=== PATIENT | female | born 1945 | race Caucasian/White ===

== ENCOUNTER → 2018-08-29 | Outpatient (CLI) | payer MEDICARE, MEDICAID ==
--- NOTE | 2018-09-02 17:20 | SLEEPHOME ---
DATE OF PROCEDURE: 08/29/2018 ORDERED BY: Dr. Mckenzie Diagnostic home sleep testing was performed due to concern for the obstructive sleep apnea syndrome in this patient with history of snoring. For testing a nocturnal T3 respiratory monitoring device was used. Continuous record was made of pulse, oxygen saturation, airflow, chest, abdominal strain and body position. 10 hours and 59 minutes of data were reviewed. There were 8 hours and 32 minutes marked as time in bed. During the interval marked time in bed there were 248 respiratory events identified of 10 seconds in duration or greater for respiratory event index of 29. The events were primarily obstructive but 27 mixed and central apneas were also seen. Baseline pulse rate 53, pulse rate ranged 31-97. Baseline saturation 91%. Saturations fell to 72%. Testing was per both supine and nonsupine positions. IMPRESSION: Abnormal home sleep testing with repetitive respiratory events and oxygen desaturations to 72% with a respiratory event index of 29 is consistent with the obstructive sleep apnea syndrome. RECOMMENDATIONS: The patient should be referred for formal sleep evaluation.
== END ==
LOC: M SLEEP HO 09:56
PROVIDERS: ATTEND Internal Medicine Cardiovascular Disease
DX: R06.83 Snoring (principal)

== ENCOUNTER 2018-10-18 14:06 | Inpatient (IN) | payer MEDICARE, MEDICAID ==
[~2018-10-18] VITALS: Ht 157.5 cm; Wt 61.4 kg
[2018-10-18 16:30] VITALS: BP 154/77
[2018-10-18] MEDS ORDERED: MOM 30ML SUSPENSION UDC PO PRN (16:30)
[2018-10-18] MEDS ORDERED: BISACODYL 10 MG SUPP PR PRN (16:30)
[2018-10-18] MEDS ORDERED: DEXTROSE 50% 50 ML SYRINGE IV PRN (16:30)
[2018-10-18] MEDS ORDERED: GLUCOSE 4 GM CHEW TABLET PO PRN (16:30)
[2018-10-18] MEDS ORDERED: GLUCAGON FOR INJ 1 MG VIAL (J1610) SC PRN (16:30)
[2018-10-18] MEDS ORDERED: SERO1TAB3 PO (17:11)
[2018-10-18] MEDS ORDERED: CALC1TAB30 PO (17:11)
[2018-10-18] MEDS ORDERED: LABE10TAB PO (17:11)
[2018-10-18] MEDS ORDERED: SYNT75TA PO (17:11)
[2018-10-18] MEDS ORDERED: KEPP10002 PO (17:11)
[2018-10-18] MEDS ORDERED: METF500T13 PO ×2 (17:11)
[2018-10-18] MEDS ORDERED: CRES20TA2 PO (17:11)
[2018-10-18] MEDS ORDERED: ASCO500T PO (17:11)
[2018-10-18] MEDS ORDERED: FERR1TAB8 PO (17:11)
[2018-10-18] MEDS ORDERED: ASPI81TA85 PO (17:11)
[2018-10-18] MEDS ORDERED: FOLI1TAB11 PO (17:11)
[2018-10-18] MEDS ORDERED: ACET-908 PO (17:15)
[2018-10-18] MEDS ORDERED: MELA1LIQ2 PO (17:26)
--- NOTE | 2018-10-18 17:32 | HPEPDOC ---
[facility]rb Compliance Coordinator Note DATE OF ADMISSION: 10/18/18 SOURCE OF ADMISSION INFORMATION: [facility] records and patient CHIEF COMPLAINT: stroke with aortic dissection repair HISTORY OF PRESENT ILLNESS: 71F pmh HTN, HLD, Hypothyroidism, DM, HALLMAN, Gout, CKD2 who experienced chest pain on 10/03/18 went to [facility] ED where she had elevated cardiac enzymes, then transferred to [facility] on 10/04/18. CT chest showed Elder type A aortic dissectionascending aneurysm measuring 4.5 cm. ECHO showed overall normal systolic function without regional wall abnormalitiesdissection flap noted in the ascending aorta extending through the arch to the descending aorta. She was evaluated by cardiothoracic surgery and underwent an ascending aortic repla cement. Post-operatively she was difficult to arouse, CTA head showing, Acute right frontoparietal lobe infarct with no signs of hemorrhagic transformation, however did have sulcal effacement that was evaluated by neurology and thought to be due to [id number] embolism from aortic dissection.She had 2 seizures the day following her cardiac procedure, was loaded with Keppra and transitioned to oral dosing. She had fever with hypotension with CXR on 10/14/18 showing, Accentuated interstitial markings bilaterally, possibly representing pulmonary edemaStable bilateral pleural effusions and bibasilar atelectasis Stable retrocardiac opacity, which can be related to pleural effusion and atelectasis; however, airspace disease such as aspiration or pneumonia cannot be excluded. Some of her BP meds, but she then had rebound HTN requiring IV hydralazine and was managed on Labetolol 100 mg TID thereafter. No antibiotics were initiated or ultimately recommended by Infectious disease for elevation in leukocytosis in setting of fever because blood cultures and Ucx were negative. SHe had episodes of delirium and encephalopathy which was treated with Seroquel. She was evaluated by therapy, found to have significant deficits in her mobility and ADL management and deemed medically appropriate for discharge to ARU on 10/18/18. REVIEW OF SYSTEMS: The following is a completed review of systems and has been reviewed. Review of systems otherwise unremarkable. PAIN: Patient self reports no pain EYES: No recent vision changes EARS, NOSE, & THROAT: +dysphagia CARDIOVASCULAR: + chest pain (sternal wall pain, TTP) PULMONARY: Denies shortness of breath GASTROINTESTINAL: Denies constipation/diarrhea GENITOURINARY: +inocntinence MUSCULOSKELETAL: LUE weakness NEUROLOGICAL:+ seizures, +LUE paresis and apraxia SKIN: abdominal incisions and sternal scar PSYCHIATRIC: agitated, but pleasant All other review of systems found to be negative. PAST MEDICAL HISTORY: as per HPI PAST SURGICAL HISTORY: as per HPI ALLERGIES: Please see below. MEDICATIONS: Please see below. FAMILY HISTORY: stroke and seizures SOCIAL HISTORY: Lives with , no EOTH, no smoking, no illicit drugs DIET: consistent carb, low sodium, mechanical soft with nectar PHYSICAL EXAMINATION: VITAL SIGNS: Please see below. GENERAL: Pleasant and cooperative. No acute distress. mildly agitated HEENT: PERRL. Extraocular movements intact. Clear conjunctiva, left facial droop CARDIOVASCULAR: Regular rate and rhythm. No murmurs, rubs, or gallops, +TTP sternum LUNGS: Clear to auscultation bilaterally. No wheezes. No rhonchi, decreased breath sounds at bases (poor inspiratory effort) ABDOMEN: Soft, nontender, nondistended. Positive bowel sounds. Normal active bowel sounds NEUROLOGICAL: Alert and oriented to self and location, had difficulty following commands consistently, +apraxia Cranial nerves II through XII grossly intact except for left sided facial droop, extinction to touch on the left side, otherwise sensation intact to light touch EXTREMITIES: 5\\5 strength right upper extremities. 3/5 left elbow flexors/extensors, 2/5 direct support professional and wrist extension 5\\5 strength right lower extremity. 4/5 strength in left lower extremity. SKIN: no sacral ulcers, sternal incision healing well, abdominal incisions with mild erythema LABORATORY DATA: Please see below. IMAGING:Imaging documentation personally reviewed by record FUNCTIONAL STATUS: Premorbid: Independent with all activities of daily life as well as mobility On Admission: Maximum assistance for bathing, upper body dressing, bed chair and wheelchair transfers, toilet transfers, ambulation. GOALS: Mod-I with ambulation household distances, Mod-I for functional transfers, bathing, grooming, toileting, medical optimization, caregiver training, assess for DME needs ASSESSMENT:73 year-old F with past medical history of HTN, DM, CKD2 who presents status post abdominal aortic dissection repair complicated by right frontal infarct. 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 Neuro: s/p right frontal lobe infarct, c/u ASA and statin, maintain good BP control, will start Prozac for motor recovery -new onset GCT seizures, c/u Keppra, will need neuro f/u 3. Cardio: s/p type A aortic dissection s/p repair on 10/04/18 with poorly controlled HTN with recent hypotensive episode at [facility] on 10/14, most BP meds held, was taking labetolol 100mg po TID, per d/c recs c/u on labetolol 50mg BID, medicine consulted to assist with management- f/u with cardiac surgeon -will add low dose lasix given recent CXR showing pulmonary edema and bilateral pleural effusions 4. Resp: monitor for infection, encourage incentive spirometry 5. Endo: pmh hypothyroidism, c/u synthroid DM- c/u insulin coverage, will hold metformin 6. DVT ppx: heparin and TEDs 7. GI ppx: protnix BID 7. Pain: Tylenol prn 9. Psych: epiodes of ICU delirum, was on seroquel qhs, will switch to trazodone qhs, trazodone ordered prn agitation 8. Dispo: TBD POST ADMISSION PHYSICIAN EVALUATION: Medical and functional status: Description of medical status, medical assessment: As above. Rehabilitation diagnosis and current and prior cold morbid medical conditions as above. Risk of complications and plans to mitigate them as above. Description of functional status current status is as above. Prior status as above. Status compared to preadmission: There are no clinically significant differences between the patient's current status and the information described on the preadmission screening document. Treatment plan anticipated: Treatment plan is as described above. Required disciplines including physical therapy, occupational therapy, others as noted above Intensity of services: 3 hours a day, 6 days a week. Special considerations: There are no specific special or safety considerations that would likely preclude immediate implementation of an intensive rehabilitation program or subsequently influence the plan of care ATTESTATION: Considering all the information above, it is my best judgment that this patient requires intensive rehabilitation therapy as described above and an inpatient hospital environment due to the complexity of nursing, medical, and rehabilitation needs required by the patient. Furthermore, this patient can reasonably be expected to participate in an benefit from an inpatient rehabilitation stay with an interdisciplinary team approach to the delivery of rehabilitation care under the direction and supervision of rehabilitation physi demetria PROGNOSIS: good ESTIMATED LENGTH OF STAY:21-24 days. PROJECTED DISCHARGE DESTINATION: Home with family support and any durable medical equipment required to increase functional safety and mobility. TIME SPENT COUNSELING AND COORDINATING INITIAL CARE: Greater than 70 minutes. Vital Signs Vital Signs Date Time Temp Pulse Resp B/P (MAP) Pulse Ox O2 Delivery O2 Flow Rate FiO2 10/18/18 16:30 99.1 101 20 154/77 (102) 97 Home Medications Scheduled Acetaminophen (Acetaminophen) 325 Mg Tablet, 650 MG PO Q6H, (Reported) Ascorbic Acid (Ascorbic Acid) 500 Mg Tablet, 500 MG PO DAILY, (Reported) STARTED AT [facility] Aspirin (Aspir 81) 81 Mg Tablet.dr, 81 MG PO DAILY, (Reported) Calcium Carbonate/Vitamin D3 (Calcium 500-Vit D3 200 Caplet) 1 Each Tablet, 1 TAB PO DAILY, (Reported) Ferrous Sulfate (Ferrous Sulfate) 325 Mg Tablet, 325 MG PO BID, (Reported) STARTED AT [facility] TAKE WITH MEALS Folic Acid (Folic Acid) 1 Mg Tablet, 1 MG PO DAILY, (Reported) STARTED AT [facility] Labetalol HCl (Labetalol HCl) 100 Mg Tablet, 50 MG PO Q12H, (Reported) STARTED AT [facility] Levetiracetam (Keppra) 1,000 Mg Tablet, 1,000 MG PO BID, (Reported) STARTED AT [facility] Levothyroxine Sodium (Synthroid) 75 Mcg Tablet, 75 MCG PO DAILY, (Reported) Metformin HCl (Metformin HCl) 500 Mg Tablet, 1,000 MG PO QAM, (Reported) Metformin HCl (Metformin HCl) 500 Mg Tablet, 500 MG PO QPM, (Reported) Quetiapine Fumarate (Seroquel) 25 Mg Tablet, 12.5 MG PO QHS, (Reported) Rosuvastatin Calcium (Crestor) 20 Mg Tablet, 20 MG PO DAILY, (Reported) Scheduled PRN Melatonin (Melatonin) 1 Mg/1 Ml Liquid, 8 ML PO QHS PRN for INSOMNIA, (Reported) Allergies Coded Allergies: morphine (Verified Adverse Reaction, Mild, 10/18/18) "facial flushing" A-FIB/CHADSVASC A-FIB History Current/History of A-Fib/PAF?: No CHRIS CORDON MD Oct 18, 2018 17:32
[2018-10-18] MEDS: traZODone 25MG PER 1/2 TABLET PO PRN (17:59)
[2018-10-18] MEDS: HumaLOG INSULIN (NovoLOG) PER UNIT SC SCH ×2 (18:00→20:56)
[2018-10-18] MEDS: ACETAMINOPHEN TAB 650MG DOSE (2X325MG) PO PRN ×2 (18:00→22:20)
[2018-10-18 20:00] VITALS: BP 139/80
[2018-10-18] MEDS: SENNA 8.6 MG TAB (SENOKOT) PO SCH (21:00)
[2018-10-18] MEDS ORDERED: LABETALOL 100 MG TAB PO SCH ×2 (21:00)
[2018-10-18] MEDS: DOCUSATE SODIUM 100 MG CAP PO SCH (21:00)
[2018-10-18] MEDS ORDERED: PANTOPRAZOLE 40MG TAB (PROTONIX) PO SCH (21:00)
[2018-10-18] MEDS: levETIRAcetam 250MG TABLET (KEPPRA) PO SCH (21:06)
[2018-10-18] MEDS: HEPARIN SOD (PORCINE) 5000 UNITS/ML VIAL SQ SCH (21:08)
[2018-10-18] MEDS: ROSUVASTATIN 10 MG TAB (CRESTOR) PO SCH (21:08)
[2018-10-18] MEDS: FERROUS GLUCONATE 324 MG TAB PO SCH (21:08)
[2018-10-18] MEDS: traZODone 50 MG TAB PO SCH (21:08)
[2018-10-18] MEDS: PANTOPRAZOLE 40MG TAB (PROTONIX) PO SCH (21:08)
[2018-10-18] MEDS: LEVEMIR (INSULIN DETEMIR) 1 UNITS/0.01ML SC SCH (21:09)
[2018-10-19] MEDS: traZODone 25MG PER 1/2 TABLET PO PRN (03:07)
[2018-10-19 06:00] VITALS: BP 161/79
[2018-10-19] MEDS: LEVOTHYROXINE 75MCG TABLET (0.075MG) PO SCH (06:29)
[2018-10-19 07:23] LABS: BASO # 0.1 10^3/uL (0.0-0.2); BASO % 0.5 % (0.0-1.0); EOS # 0.2 10^3/uL (0.0-0.50); EOS % 1.6 % (0.0-3.0); HEMATOCRIT 31.5 % (36.0-47.0); LYMPH # 1.2 10^3/uL (1.5-4.5); LYMPH % 9.3 % (24.0-44.0); MEAN CORPUSCULAR HEMOGLOBIN 28.7 pg (27.0-33.0); MEAN CORPUSCULAR HGB CONC 31.7 g/dl (32.0-36.5); MEAN CORPUSCULAR VOLUME 90.5 fl (80.0-96.0); MONO % 7.6 % (0.0-5.0); NEUTROPHILS # 10.4 10^3/uL (1.8-7.7); PLATELET COUNT, AUTOMATED 309 10^3/uL (150-450); RED BLOOD COUNT 3.48 10^6/uL (4.00-5.40); WHITE BLOOD COUNT 12.9 10^3/uL (4.0-10.0)
[2018-10-19] MEDS: HumaLOG INSULIN (NovoLOG) PER UNIT SC SCH ×4 (07:30→20:24)
[2018-10-19 07:56] LABS: ALT/SGPT 13 U/L (12-78); BILIRUBIN,TOTAL 0.7 MG/DL (0.2-1.0); BLOOD UREA NITROGEN 20 MG/DL (7-18); CALCIUM LEVEL 8.9 MG/DL (8.8-10.2); CARBON DIOXIDE LEVEL 25 MEQ/L (21-32); CHLORIDE LEVEL 104 MEQ/L (98-107); CREATININE FOR GFR 0.86 MG/DL (0.55-1.30); GLOMERULAR FILTRATION RATE > 60.0 (>39); GLUCOSE, FASTING 95 MG/DL (70-100); SODIUM LEVEL 136 MEQ/L (136-145); TOTAL PROTEIN 6.4 GM/DL (6.4-8.2)
[2018-10-19] MEDS: DOCUSATE SODIUM 100 MG CAP PO SCH ×2 (09:00→21:00)
[2018-10-19] MEDS: FERROUS GLUCONATE 324 MG TAB PO SCH ×2 (09:14→21:09)
[2018-10-19] MEDS: HEPARIN SOD (PORCINE) 5000 UNITS/ML VIAL SQ SCH ×2 (09:14→21:07)
[2018-10-19] MEDS: LABETALOL 100 MG TAB PO SCH ×3 (09:15→21:08)
[2018-10-19] MEDS: ASCORBIC ACID 500 MG TAB PO SCH (09:15)
[2018-10-19] MEDS: levETIRAcetam 250MG TABLET (KEPPRA) PO SCH ×2 (09:15→21:09)
[2018-10-19] MEDS: CALCIUM/VITAMIN D 500 MG TAB PO SCH (09:15)
[2018-10-19] MEDS: FLUoxetine 20 MG CAP PO SCH (09:15)
[2018-10-19] MEDS: FOLIC ACID 1 MG TAB PO SCH (09:15)
[2018-10-19] MEDS: FUROSEMIDE 20 MG TAB PO SCH (09:15)
[2018-10-19] MEDS: PANTOPRAZOLE 40MG TAB (PROTONIX) PO SCH ×2 (09:15→21:08)
[2018-10-19] MEDS: ASPIRIN 81 MG CHEW TABLET PO SCH (09:16)
[2018-10-19 09:42] LABS: ERYTHROCYTE SEDIMENTATION RATE 29 mm/hr (0-30)
--- NOTE | 2018-10-19 11:32 | REP ---
BILATERAL LOWER EXTREMITY DOPPLER VENOUS ULTRASOUND: Comparison: None. Technique: The deep venous system of the bilateral lower extremities is evaluated with arriaza scale imaging, compression ultrasound, color imaging and duplex Doppler interrogation. Examination from the groin through the popliteal fossa into the proximal calf. Findings: There is full compressibility from the common femoral vein in the inguinal region through the popliteal vein on both sides. Color imaging confirms patency throughout the course of the deep venous system. There is respiratory variation and augmented flow at all levels. Impression: 1. No Doppler venous ultrasound evidence of DVT in the bilateral lower extremities. Electronically Signed by Taqueria Perkins MD 10/19/2018 11:24 A
[2018-10-19] MEDS: ACETAMINOPHEN TAB 650MG DOSE (2X325MG) PO PRN ×2 (12:25→21:09)
--- NOTE | 2018-10-19 12:50 | HPEPDOC ---
General Date of Admission Oct 18, 2018 at 16:20 Date of Service: Oct 19, 2018 Chief Complaint The patient is a 73-year-old female admitted with a reason for visit of Acute Right Front Parietal Lobe Infarct. History of Present Illness Consultation report Consultation requested by Dr Magana Consultation for management of medical comorbidities HPI: 73 year old female with PMH of HTN, HLD, Hypothyroidism, DM, HALLMAN, Gout, CKD2 who experienced chest pain on 10/03/18 went to [facility] ED where she had elevated cardiac enzymes, then transferred to [facility] on 10/04/18. CT chest showed Warren type A aortic dissectionascending aneurysm measuring 4.5 cm. ECHO showed overall normal systolic function without regional wall abnormalitiesdissection flap noted in the ascending aorta extending through the arch to the descending aorta. She underwent an ascending aortic replacement. Post-operatively she was difficult to arouse and was found to have Acute right frontoparietal lobe infarct with no signs of hemorrhagic transformation. She was evaluated by neurology and thought to be due to [id number] embolism from aortic dissection. She had 2 seizures the day following her cardiac procedure, was loaded with Keppra and transitioned to oral dosing. She had fever with hypotension with CXR on 10/14/18 showing, Accentuated interstitial markings bilaterally, possibly representing pulmonary edemaStable bilateral pleural effusions and bibasilar atelectasis Stable retrocardiac opacity, which can be related to pleural effusion and atelectasis; however, airspace disease such as aspiration or pneumonia cannot be excluded. She was not given any antibiotics. She was evaluated by therapy, found to have significant deficits in her mobility and ADL management and deemed medically appropriate for discharge to ARU on 10/18/18. She was accepted here for acute rehabilitation. Home Medications Scheduled Acetaminophen (Acetaminophen) 325 Mg Tablet, 650 MG PO Q6H, (Reported) Ascorbic Acid (Ascorbic Acid) 500 Mg Tablet, 500 MG PO DAILY, (Reported) STARTED AT [facility] Aspirin (Aspir 81) 81 Mg Tablet.dr, 81 MG PO DAILY, (Reported) Calcium Carbonate/Vitamin D3 (Calcium 500-Vit D3 200 Caplet) 1 Each Tablet, 1 TAB PO DAILY, (Reported) Ferrous Sulfate (Ferrous Sulfate) 325 Mg Tablet, 325 MG PO BID, (Reported) STARTED AT [facility] TAKE WITH MEALS Folic Acid (Folic Acid) 1 Mg Tablet, 1 MG PO DAILY, (Reported) STARTED AT [facility] Labetalol HCl (Labetalol HCl) 100 Mg Tablet, 50 MG PO Q12H, (Reported) STARTED AT [facility] Levetiracetam (Keppra) 1,000 Mg Tablet, 1,000 MG PO BID, (Reported) STARTED AT [facility] Levothyroxine Sodium (Synthroid) 75 Mcg Tablet, 75 MCG PO DAILY, (Reported) Metformin HCl (Metformin HCl) 500 Mg Tablet, 1,000 MG PO QAM, (Reported) Metformin HCl (Metformin HCl) 500 Mg Tablet, 500 MG PO QPM, (Reported) Quetiapine Fumarate (Seroquel) 25 Mg Tablet, 12.5 MG PO QHS, (Reported) Rosuvastatin Calcium (Crestor) 20 Mg Tablet, 20 MG PO DAILY, (Reported) Scheduled PRN Melatonin (Melatonin) 1 Mg/1 Ml Liquid, 8 ML PO QHS PRN for INSOMNIA, (Reported) Allergies Coded Allergies: morphine (Verified Adverse Reaction, Mild, 10/18/18) "facial flushing" Past Medical History Medical History HTN, HLD, Hypothyroidism, DM, HALLMAN, Gout, CKD2 Recent right frontoparietal infarction with left upper extremity and left facil weakness and mild left lower extremity weakness. aortic dissection extending from ascending aorta through the arch into the descending aorta. s/p surgery seizures post stroke Surgical History Ascending aortic replacement. Family History Seizures and stroke Social History * Smoker: Denies Alcohol: Denies Drugs: denies A-FIB/CHADSVASC A-FIB History Current/History of A-Fib/PAF?: No Review of Systems Constitutional: Reports: Weakness; Denies: Chills, Fever, Night Sweats Eyes: Denies: Pain, Vision change ENT: Reports: Dysphagia; Denies: Head Aches, Ear Pain Skin: Denies: Rash, Lesions, Breakdown Pulmonary: Reports: Cough; Denies: Dyspnea, Pleuritic Chest Pain Cardiovascular: Denies: Chest Pain, Palpitations, Orthopnea, Paroxysmal Noc. Dyspnea, Lt Headedness Gastrointestinal: Denies: Nausea, Vomiting, Abdominal Pain, Diarrhea Genitourinary: Denies: Dysuria, Frequency, Incontinence Hematologic: Denies: Bruising, Bleeding Excessively Neurological: Reports: Weakness (left upper extremily), Change in speech Physical Examination General Exam: Positive: Alert, Cooperative, No Acute Distress, Other (left facial droop) Eye Exam: Positive: PERRLA, Conjunctiva & lids normal, EOMI; Negative: Sclera icteric ENT Exam: Positive: Atraumatic, Mucous membr. moist/pink, Pharynx Normal Neck Exam: Positive: Supple; Negative: JVD, thyromegaly Chest Exam: Positive: Normal air movement, Other (bilateral basal crackles.); Negative: Rhonchi, Wheezing Heart Exam: Positive: Rate Normal, Regular Rhythm, Normal S1, Normal S2; Negative: Murmurs, Rubs Abdomen Exam: Positive: Normal bowel sounds, Soft; Negative: Tenderness, Hepatospenomegaly Extremity Exam: Negative: Clubbing, Cyanosis, Edema Neuro Exam: Positive: Other (5\\5 strength right upper extremities. 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 4/5 strength in left lower extremity. ) Vital Signs Vital Signs Date Time Temp Pulse Resp B/P (MAP) Pulse Ox O2 Delivery O2 Flow Rate FiO2 10/19/18 09:15 96 161/79 10/19/18 06:00 99.2 18 96 Laboratory Data Labs 24H Laboratory Tests 2 10/18/18 17:23: Bedside Glucose (Misc Panel) 121H 10/18/18 20:12: Bedside Glucose (Misc Panel) 200H 10/19/18 06:17: Bedside Glucose (Misc Panel) 83 10/19/18 06:56: Immature Granulocyte % (Auto) 1.0, White Blood Count 12.9H, Red Blood Count 3.48L, Hemoglobin 10.0L, Hematocrit 31.5L, Mean Corpuscular Volume 90.5, Mean Corpuscular Hemoglobin 28.7, Mean Corpuscular Hemoglobin Concent 31.7L, Red Cell Distribution Width 17.0H, Platelet Count 309, Neutrophils (%) (Auto) 80.0H, Lymphocytes (%) (Auto) 9.3L, Monocytes (%) (Auto) 7.6H, Eosinophils (%) (Auto) 1.6, Basophils (%) (Auto) 0.5, Neutrophils # (Auto) 10.4H, Lymphocytes # (Auto) 1.2L, Monocytes # (Auto) 1.0H, Eosinophils # (Auto) 0.2, Basophils # (Auto) 0.1, Nucleated Red Blood Cells % (auto) 0.0, Erythrocyte Sedimentation Rate 29, Anion Gap 7L, Glomerular Filtration Rate > 60.0, Blood Urea Nitrogen 20H, Creatinine 0.86, Sodium Level 136, Potassium Level 4.0, Chloride Level 104, Carbon Dioxide Level 25, Calcium Level 8.9, Aspartate Amino Transf (AST/SGOT) 15, Alanine Aminotransferase (ALT/SGPT) 13, Alkaline Phosphatase 147H, Total Bilirubin 0.7, Total Protein 6.4, Albumin 3.0L, C-Reactive Protein, Quantitative 10.30H, Albumin/Globulin Ratio 0.88L CBC/BMP Laboratory Tests 10/19/18 06:56 Red Blood Count 3.48 L, Mean Corpuscular Volume 90.5, Mean Corpuscular Hemoglobin 28.7, Mean Corpuscular Hemoglobin Concent 31.7 L, Red Cell Distribution Width 17.0 H, Neutrophils (%) (Auto) 80.0 H, Lymphocytes (%) (Auto) 9.3 L, Monocytes (%) (Auto) 7.6 H, Eosinophils (%) (Auto) 1.6, Basophils (%) (Auto) 0.5, Neutrophils # (Auto) 10.4 H, Lymphocytes # (Auto) 1.2 L, Monocytes # (Auto) 1.0 H, Eosinophils # (Auto) 0.2, Basophils # (Auto) 0.1, Calcium Level 8.9, Aspartate Amino Transf (AST/SGOT) 15, Alanine Aminotransferase (ALT/SGPT) 13, Alkaline Phosphatase 147 H, Total Bilirubin 0.7, Total Protein 6.4, Albumin 3.0 L Microbiology Microbiology 10/19/18 Blood Culture, Received Pending 10/19/18 Blood Culture, Received Pending Assessment/Plan 73 year old female with PMH of HTN, HLD, Hypothyroidism, DM, HALLMAN, Gout, CKD2 who experienced chest pain on 10/03/18 went to [facility] ED where she had elevated cardiac enzymes, then transferred to [facility] on 10/04/18. CT chest showed Elder type A aortic dissectionascending aneurysm measuring 4.5 cm. ECHO showed overall normal systolic function without regional wall abnorm alitiesdissection flap noted in the ascending aorta extending through the arch to the descending aorta. She underwent an ascending aortic replacement. Post- operatively she was difficult to arouse and was found to have Acute right frontoparietal lobe infarct with no signs of hemorrhagic transformation. She was evaluated by neurology and thought to be due to [id number] embolism from aortic dissection. She had 2 seizures the day following her cardiac procedure, was loaded with Keppra and transitioned to oral dosing. She had fever with hypotension with CXR on 10/14/18 showing, Accentuated interstitial markings bilaterally, possibly representing pulmonary edemaStable bilateral pleural e ffusions and bibasilar atelectasis Stable retrocardiac opacity, which can be related to pleural effusion and atelectasis; however, airspace disease such as aspiration or pneumonia cannot be excluded. She was not given any antibiotics. She was evaluated by therapy, found to have significant deficits in her mobility and ADL management and deemed medically appropriate for discharge to ARU on 10/18/18. She was accepted here for acute rehabilitation. S/P Acute right frontoparietal infarct after surgery for aortic dissection on 10/04/18 with left hemiparesis. continue ASA, stain, bp control with labetalol. Ua Dirty afebrile, no symptoms of dysuria, though there is mild elevation of WBC to 12.9 will wait for urine cultures. May have cystitis vs asymptomatic bacteruria. Anemia recently had vascular surgery , aortic dissection repair on iron supplementation monitor hh. New onset seizures after stroke continue Keppra. s/p type A aortic dissection s/p repair on 10/04/18 with poorly controlled HTN Hypertension continue labetelol at current dosage will adjust as necessary also on lasix. Hypothyroidism, c/u Synthroid DM- c/u insulin coverage, will hold metformin GI ppx: Protonix BID Psych: episodes of ICU delirium when in [facility] on trazodone Plan / VTE VTE Prophylaxis Ordered?: Yes SYMONE KENDALL MD Oct 19, 2018 09:55
[2018-10-19 14:00] VITALS: BP 109/57
[2018-10-19 17:05] VITALS: BP 134/64
[2018-10-19] MEDS: LACTOBACILLUS ACIDOPHILUS CAP (BACID) PO SCH (17:06)
[2018-10-19 20:00] VITALS: BP 127/62
[2018-10-19] MEDS: SENNA 8.6 MG TAB (SENOKOT) PO SCH (21:00)
[2018-10-19] MEDS: ROSUVASTATIN 10 MG TAB (CRESTOR) PO SCH (21:09)
[2018-10-19] MEDS: traZODone 50 MG TAB PO SCH (21:09)
[2018-10-19] MEDS: CEFDINIR 300 MG CAP (OMNICEF) PO SCH (21:09)
[2018-10-19] MEDS: LEVEMIR (INSULIN DETEMIR) 1 UNITS/0.01ML SC SCH (21:29)
[2018-10-20] MEDS: LEVOTHYROXINE 75MCG TABLET (0.075MG) PO SCH (05:41)
[2018-10-20 06:00] VITALS: BP 143/70
[2018-10-20] MEDS: HumaLOG INSULIN (NovoLOG) PER UNIT SC SCH ×4 (07:30→20:01)
[2018-10-20] MEDS: FOLIC ACID 1 MG TAB PO SCH (08:29)
[2018-10-20] MEDS: DOCUSATE SODIUM 100 MG CAP PO SCH ×2 (08:29→20:20)
[2018-10-20] MEDS: LACTOBACILLUS ACIDOPHILUS CAP (BACID) PO SCH ×3 (08:29→17:19)
[2018-10-20] MEDS: FUROSEMIDE 20 MG TAB PO SCH (08:29)
[2018-10-20] MEDS: ASPIRIN 81 MG CHEW TABLET PO SCH (08:29)
[2018-10-20] MEDS: HEPARIN SOD (PORCINE) 5000 UNITS/ML VIAL SQ SCH ×2 (08:29→20:18)
[2018-10-20] MEDS: PANTOPRAZOLE 40MG TAB (PROTONIX) PO SCH ×2 (08:29→20:19)
[2018-10-20] MEDS: ASCORBIC ACID 500 MG TAB PO SCH (08:29)
[2018-10-20] MEDS: CEFDINIR 300 MG CAP (OMNICEF) PO SCH ×2 (08:29→20:19)
[2018-10-20] MEDS: FERROUS GLUCONATE 324 MG TAB PO SCH ×2 (08:29→20:19)
[2018-10-20] MEDS: levETIRAcetam 250MG TABLET (KEPPRA) PO SCH ×2 (08:29→20:20)
[2018-10-20] MEDS: CALCIUM/VITAMIN D 500 MG TAB PO SCH (08:29)
[2018-10-20] MEDS: FLUoxetine 20 MG CAP PO SCH (08:29)
[2018-10-20] MEDS: LABETALOL 100 MG TAB PO SCH ×3 (08:30→20:20)
--- NOTE | 2018-10-20 13:12 | IPNPDOC ---
Subjective Date Seen The patient was seen on 10/20/18. Subjective Chief Complaint/HPI feels better today. Say more like herself, denies any pain, no fever or chills, nochet pain ro sob , no dysuria, no abdominal pain , nuasea or vomiting or diarrhea. Objective Physical Examination General Exam: Positive: Alert, Cooperative, No Acute Distress, Other (left facial droop) Eye Exam: Positive: PERRLA, Conjunctiva & lids normal, EOMI; Negative: Sclera icteric ENT Exam: Positive: Atraumatic, Mucous membr. moist/pink, Pharynx Normal Neck Exam: Positive: Supple; Negative: JVD, thyromegaly Chest Exam: Positive: Normal air movement, Other (bilateral basal crackles.); Negative: Rhonchi, Wheezing Heart Exam: Positive: Rate Normal, Regular Rhythm, Normal S1, Normal S2; Negative: Murmurs, Rubs Abdomen Exam: Positive: Normal bowel sounds, Soft; Negative: Tenderness, Hepatospenomegaly Extremity Exam: Negative: Clubbing, Cyanosis, Edema Neuro Exam: Positive: Other (5\5 strength right upper extremities. 3/5 left elbow flexors/extensors, 2/5 building attendant and wrist extension 5\5 strength right lower extremity. 4/5 strength in left lower extremity. ) Assessment /Plan Assessment 73 year old female with PMH of HTN, HLD, Hypothyroidism, DM, HALLMAN, Gout, CKD2 who experienced chest pain on 10/03/18 went to [facility] ED where she had elevated cardiac enzymes, then transferred to [facility] on 10/04/18. CT chest showed Elder type A aortic dissectionascending aneurysm measuring 4.5 cm. ECHO showed overall normal systolic function without regional wall abnormalitiesdissection flap noted in the ascending aorta extending through the arch to the descending aorta. She underwent an ascending aortic replacement. Post-operatively she was difficult to arouse and was found to have Acute right frontoparietal lobe infarct with no signs of hemorrhagic transformation. She was evaluated by neurology and thought to be due to [id number] embolism from aortic dissection. She had 2 seizures the day following her cardiac procedure, was loaded with Keppra and transitioned to oral dosing. She had fever with hypotension with CXR on 10/14/18 showing, Accentuated interstitial markings bilaterally, possibly representing pulmonary edemaStable bilateral pleural effusions and bibasilar atelectasis Stable retrocardiac opacity, which can be related to pleural effusion and atelectasis; however, airspace disease such as aspiration or pneumonia cannot be excluded. She was not given any antibiotics. She was evaluated by therapy, found to have significant deficits in her mobility and ADL management and deemed medically appropriate for discharge to ARU on 10/18/18. She was accepted here for acute rehabilitation. S/P Acute right frontoparietal infarct after surgery for aortic dissection on 10/04/18 with left hemiparesis. continue ASA, stain, bp control with labetalol. Ua Dirty afebrile, no symptoms of dysuria, though there is mild elevation of WBC to 12.9 started on augmentin. Cultures in progress, Blood cultures negative till date. May have cystitis vs asymptomatic bacteruria. Anemia recently had vascular surgery , aortic dissection repair on iron supplementation monitor . New onset seizures after stroke continue Keppra. s/p type A aortic dissection s/p repair on 10/04/18 with poorly controlled HTN Hypertension continue labetelol at current dosage will adjust as necessary also on lasix. Hypothyroidism, c/u Synthroid DM- c/u insulin coverage, will hold metformin GI ppx: Protonix BID Psych: episodes of ICU delirium when in ANUM on tr Plan/VTE VTE Prophylaxis Ordered?: Yes VS, I&O, 24H, Fishbone Vital Signs/I&O Vital Signs Date Time Temp Pulse Resp B/P (MAP) Pulse Ox O2 Delivery O2 Flow Rate FiO2 10/20/18 08:30 78 143/70 10/20/18 06:00 97.5 16 92 I&O- Last 24 Hours up to 6 AM 10/20/18 06:00 Intake Total 420 ml Output Total 0 ml Balance 420 ml Laboratory Data 24H LABS Laboratory Tests 2 10/19/18 14:30: Urine Color YELLOW, Urine Appearance TURBIDH, Urine pH 5.0, Urine Specific Sumner 1.009, Urine Protein NEGATIVE, Urine Glucose (UA) NEGATIVE, Urine Ketones NEGATIVE, Urine Blood 2+H, Urine Nitrite NEGATIVE, Urine Bilirubin NEGATIVE, Urine Urobilinogen 0.2, Urine Leukocyte Esterase 3+H, Urine WBC (Auto) TNTCH, Urine RBC (Auto) 9H, Urine Hyaline Casts (Auto) 0, Urine Bacteria (Auto) 2+H, Urine Squamous Epithelial Cells 3, Urine Sperm (Auto) 10/19/18 16:44: Bedside Glucose (Misc Panel) 140H 10/19/18 19:59: Bedside Glucose (Misc Panel) 156H 10/20/18 05:40: Bedside Glucose (Misc Panel) 95 10/20/18 11:57: Bedside Glucose (Misc Panel) 174H Microbiology Microbiology 10/19/18 Blood Culture - Preliminary, Resulted No growth after 24 hours . All specim... 10/19/18 Blood Culture - Preliminary, Resulted No growth after 24 hours . All specim... 10/19/18 Urine Culture, Received Pending SYMONE KENDALL MD Oct 20, 2018 13:12
[2018-10-20 17:18] VITALS: BP 122/57
[2018-10-20] MEDS: ACETAMINOPHEN TAB 650MG DOSE (2X325MG) PO PRN (17:55)
[2018-10-20 20:00] VITALS: BP 116/59
[2018-10-20] MEDS: traZODone 50 MG TAB PO SCH (20:19)
[2018-10-20] MEDS: LEVEMIR (INSULIN DETEMIR) 1 UNITS/0.01ML SC SCH (20:19)
[2018-10-20] MEDS: SENNA 8.6 MG TAB (SENOKOT) PO SCH (20:19)
[2018-10-20] MEDS: ROSUVASTATIN 10 MG TAB (CRESTOR) PO SCH (20:19)
[2018-10-21] MEDS: ACETAMINOPHEN TAB 650MG DOSE (2X325MG) PO PRN ×3 (03:02→20:40)
[2018-10-21 05:51] VITALS: BP 150/72
[2018-10-21] MEDS: LEVOTHYROXINE 75MCG TABLET (0.075MG) PO SCH (05:58)
[2018-10-21 07:04] LABS: HEMATOCRIT 28.7 % (36.0-47.0); MEAN CORPUSCULAR HGB CONC 31.4 g/dl (32.0-36.5); MEAN CORPUSCULAR VOLUME 89.4 fl (80.0-96.0); PLATELET COUNT, AUTOMATED 369 10^3/uL (150-450); RED BLOOD COUNT 3.21 10^6/uL (4.00-5.40); WHITE BLOOD COUNT 12.5 10^3/uL (4.0-10.0)
[2018-10-21 07:36] LABS: CREATININE FOR GFR 0.98 MG/DL (0.55-1.30); GLOMERULAR FILTRATION RATE 59.4 (>39); POTASSIUM SERUM 4.4 MEQ/L (3.5-5.1)
[2018-10-21] MEDS: DOCUSATE SODIUM 100 MG CAP PO SCH ×2 (09:21→20:39)
[2018-10-21] MEDS: PANTOPRAZOLE 40MG TAB (PROTONIX) PO SCH ×2 (09:21→20:35)
[2018-10-21] MEDS: HumaLOG INSULIN (NovoLOG) PER UNIT SC SCH ×4 (09:21→20:42)
[2018-10-21] MEDS: CEFDINIR 300 MG CAP (OMNICEF) PO SCH ×2 (09:21→20:40)
[2018-10-21] MEDS: levETIRAcetam 250MG TABLET (KEPPRA) PO SCH ×2 (09:21→20:35)
[2018-10-21] MEDS: ASPIRIN 81 MG CHEW TABLET PO SCH (09:21)
[2018-10-21] MEDS: LACTOBACILLUS ACIDOPHILUS CAP (BACID) PO SCH ×3 (09:22→17:27)
[2018-10-21] MEDS: FOLIC ACID 1 MG TAB PO SCH (09:22)
[2018-10-21] MEDS: CALCIUM/VITAMIN D 500 MG TAB PO SCH (09:22)
[2018-10-21] MEDS: ASCORBIC ACID 500 MG TAB PO SCH (09:22)
[2018-10-21] MEDS: FLUoxetine 20 MG CAP PO SCH (09:22)
[2018-10-21] MEDS: HEPARIN SOD (PORCINE) 5000 UNITS/ML VIAL SQ SCH ×2 (09:22→20:43)
[2018-10-21] MEDS: FERROUS GLUCONATE 324 MG TAB PO SCH ×2 (09:22→20:35)
[2018-10-21] MEDS: FUROSEMIDE 20 MG TAB PO SCH (09:22)
[2018-10-21] MEDS: LABETALOL 100 MG TAB PO SCH ×3 (09:23→20:38)
[2018-10-21 14:00] VITALS: BP 110/58
--- NOTE | 2018-10-21 17:05 | IPNPDOC ---
PM&R Progress Note DATE OF SERVICE: Oct 21, 2018 [employer] Progress Note Subjective: Patient seen in her bed, stating she still has a cough, was not sure what year it was stating it was "19...20" She reports she is sleeping well. REVIEW OF SYSTEMS: The following is a completed review of systems and has been reviewed. Review of systems otherwise unremarkable. PAIN: Patient self reports no pain EYES: No recent vision changes EARS, NOSE, & THROAT: +dysphagia CARDIOVASCULAR: + chest pain (sternal wall pain, TTP)-resolved PULMONARY: Denies shortness of breath GASTROINTESTINAL: Denies constipation/diarrhea GENITOURINARY: +inocntinence MUSCULOSKELETAL: LUE weakness NEUROLOGICAL:+ seizures, +LUE paresis and apraxia SKIN: abdominal incisions and sternal scar PSYCHIATRIC: agitated, but pleasant All other review of systems found to be negative. PHYSICAL EXAMINATION: VITAL SIGNS: Please see below. GENERAL: Pleasant and cooperative. No acute distress. mildly agitated HEENT: PERRL. Extraocular movements intact. Clear conjunctiva, left facial droop CARDIOVASCULAR: Regular rate and rhythm. No murmurs, rubs, or gallops, +TTP sternum LUNGS: Clear to auscultation bilaterally. No wheezes. No rhonchi, decreased breath sounds at bases (poor inspiratory effort) ABDOMEN: Soft, nontender, nondistended. Positive bowel sounds. Normal active bowel sounds NEUROLOGICAL: Alert and oriented to self and location, had difficulty following commands consistently, +apraxia Cranial nerves II through XII grossly intact except for left sided facial droop, extinction to touch on the left side, otherwise sensation intact to light touch EXTREMITIES: 5\\5 strength right upper extremities. 3/5 left elbow flexors/extensors, 2/5 velocity shooter and wrist extension 5\\5 strength right lower extremity. 4/5 strength in left lower extremity. SKIN: no sacral ulcers, sternal incision healing well, abdominal incisions with mild erythema LABORATORY DATA: Please see below. ASSESSMENT:73 year-old F with past medical history of HTN, DM, CKD2 who presents status post abdominal aortic dissection repair complicated by right frontal infarct. 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 Neuro: s/p right frontal lobe infarct, c/u ASA and statin, maintain good BP control -c/u Prozac for motor recovery -new onset GCT seizures, c/u Keppra, will need neuro f/u 3. Cardio: s/p type A aortic dissection s/p repair on 10/04/18 with poorly controlled HTN with recent hypotensive episode at [facility] on 10/14, most BP meds held, was taking labetolol 100mg po TID, per d/c recs c/u on labetolol 50mg, increased to q8h, medicine consulted to assist with management- f/u with cardiac surgeon -c/u low dose lasix given recent CXR showing pulmonary edema and bilateral ple ural effusions- -mild hyponatremia- will fluid restrict to 1500cc and monitor 4. Resp: monitor for infection, encourage incentive spirometry, 5. Endo: pmh hypothyroidism, c/u Synthroid DM- c/u insulin coverage, and c/u to hold metformin 6. : Ucx positive for E. Coli c/p 7 day course of Cefdinir 6. DVT ppx: heparin and TEDs 7. GI ppx: protnix BID 7. Pain: Tylenol prn 9. Psych: epiodes of ICU delirum, was on seroquel qhs, c/u trazodone qhs, trazodone ordered prn agitation-stable 8. Dispo: TBD Allergies Coded Allergies: morphine (Verified Adverse Reaction, Mild, 10/18/18) "facial flushing" Vital Signs Vital Signs Date Time Temp Pulse Resp B/P (MAP) Pulse Ox O2 Delivery O2 Flow Rate FiO2 10/21/18 15:15 80 110/58 10/21/18 14:00 97.2 21 93 Laboratory Data CBC/BMP Laboratory Tests 10/21/18 06:41 Red Blood Count 3.21 L, Mean Corpuscular Volume 89.4, Mean Corpuscular Hemoglobin 28.0, Mean Corpuscular Hemoglobin Concent 31.4 L, Red Cell Distribution Width 16.9 H, Calcium Level 9.0 Labs 24H Laboratory Tests 2 10/20/18 20:00: Bedside Glucose (Misc Panel) 161H 10/21/18 06:41: Nucleated Red Blood Cells % (auto) 0.0, Anion Gap 4L, Glomerular Filtration Rate 59.4, Blood Urea Nitrogen 28H, Creatinine 0.98, Sodium Level 132L, Potassium Level 4.4, Chloride Level 101, Carbon Dioxide Level 27, Calcium Level 9.0 10/21/18 11:38: Bedside Glucose (Misc Panel) 187H 10/21/18 16:52: Bedside Glucose (Misc Panel) 156H Microbiology Microbiology 10/19/18 Blood Culture - Preliminary, Resulted No Growth after 48 hours. All Specime... 10/19/18 Blood Culture - Preliminary, Resulted No Growth after 48 hours. All Specime... 10/19/18 Urine Culture - Final, Complete Escherichia Coli Current Medications Current Medications Current Medications Medications (Trade) Dose Ordered Sig/Chirag Route PRN Reason Start Time Stop Time Status Last Admin Dose Admin Acetaminophen (Tylenol Tab) 650 mg Q4HP PRN PO MILD PAIN (PS 1-4) 10/18/18 16:30 10/21/18 10:48 Ascorbic Acid (Vitamin C) 500 mg DAILY PO 10/19/18 09:00 10/21/18 09:22 Aspirin (Aspirin Chewable) 81 mg DAILY PO 10/19/18 09:00 10/21/18 09:21 Bisacodyl (Dulcolax Suppository) 10 mg DAILYPRN PRN PA CONSTIPATION 10/18/18 16:30 Calcium/Vitamin D (Oscal D) 500 mg DAILY PO 10/19/18 09:00 10/21/18 09:22 Cefdinir (Omnicef) 300 mg BID PO 10/19/18 21:00 10/26/18 09:01 10/21/18 09:21 Dextrose (Dextrose 50%) 25 ml ASDIRECTED PRN IV SEE LABEL COMMENTS 10/18/18 16:30 Docusate Sodium (Colace) 100 mg BID PO 10/18/18 21:00 10/21/18 09:21 Ferrous Gluconate (Fergon) 324 mg BID PO 10/18/18 21:00 10/21/18 09:22 Fluoxetine HCl (PROzac) 20 mg DAILY PO 10/19/18 09:00 10/21/18 09:22 Folic Acid (Folic Acid) 1 mg DAILY PO 10/19/18 09:00 10/21/18 09:22 Furosemide (Lasix) 20 mg DAILY PO 10/19/18 09:00 10/21/18 09:22 Glucagon (Glucagon) 1 mg ASDIRECTED PRN SC SEE LABEL COMMENTS 10/18/18 16:30 Glucose (Glucose) 16 GM ASDIRECTED PRN PO SEE LABEL COMMENTS 10/18/18 16:30 Heparin Sodium (Porcine) (Heparin) 5,000 units Q12H SQ 10/18/18 21:00 10/21/18 09:22 Home Med (Med Rec Complete!) ASDIRECTED XX 10/18/18 17:30 10/18/18 17:30 DC Insulin Detemir (Levemir Insulin) 10 units QHS SC 10/18/18 21:00 10/20/18 20:19 Insulin Human Lispro (HumaLOG INSULIN) SEE PROTOCOL TABLE AC SC 10/18/18 17:30 10/21/18 12:27 Insulin Human Lispro (HumaLOG INSULIN) SEE PROTOCOL TABLE QHS SC 10/18/18 21:00 Labetalol HCl (Normodyne, Trandate) 50 mg BID PO 10/18/18 21:00 10/19/18 07:40 DC 10/18/18 21:07 Labetalol HCl (Normodyne, Trandate) 50 mg Q8H PO 10/21/18 14:00 Labetalol HCl (Normodyne, Trandate) 50 mg TID PO 10/18/18 21:00 10/18/18 21:00 DC Labetalol HCl (Normodyne, Trandate) 50 mg TID PO 10/19/18 09:00 10/21/18 14:36 DC 10/21/18 09:23 Lactobacillus Acidophilus (Bacid) 1 ea WM PO 10/19/18 18:00 10/21/18 12:27 Levetiracetam (Keppra) 1,000 mg BID PO 10/18/18 21:00 10/21/18 09:21 Levothyroxine Sodium (Synthroid) 75 mcg DAILY@06 PO 10/19/18 06:00 10/21/18 05:58 Magnesium Hydroxide (Milk Of Magnesia) 30 ml DAILYPRN PRN PO CONSTIPATION 10/18/18 16:30 Pantoprazole Sodium (Protonix) 40 mg BID PO 10/18/18 21:00 10/21/18 09:21 Pantoprazole Sodium (Protonix) 40 mg QHS PO 10/18/18 21:00 10/18/18 21:00 DC Rosuvastatin Calcium (Crestor) 20 mg QHS PO 10/18/18 21:00 10/20/18 20:19 Senna (Senokot) 1 tab QHS PO 10/18/18 21:00 10/20/18 20:19 Trazodone HCl (Desyrel) 25 mg Q6HP PRN PO AGITATION 10/18/18 16:30 10/19/18 03:07 Trazodone HCl (Desyrel) 25 mg QHS PO 10/21/18 21:00 Trazodone HCl (Desyrel) 50 mg QHS PO 10/18/18 21:00 10/21/18 14:38 DC 10/20/18 20:19 CHRIS CORDON MD Oct 21, 2018 17:05
[2018-10-21] MEDS: traZODone 25MG PER 1/2 TABLET PO SCH (20:40)
[2018-10-21] MEDS: SENNA 8.6 MG TAB (SENOKOT) PO SCH (20:41)
[2018-10-21] MEDS: ROSUVASTATIN 10 MG TAB (CRESTOR) PO SCH (20:41)
[2018-10-21] MEDS: LEVEMIR (INSULIN DETEMIR) 1 UNITS/0.01ML SC SCH (20:42)
--- NOTE | 2018-10-21 21:45 | IPN ---
DATE: 10/18/2018 She is a 73-year-old female on the acute rehab unit. She has had an acute right frontoparietal lobe infarct. She had bilateral venous Doppler study for immobility and they were negative. Urine was positive for Escherichia (E) coli, and she has been placed on cefdinir. She is afebrile. She has a history of hypothyroidism, continues on Synthroid. Diabetes - on insulin coverage. Metformin is on hold. Fasting blood sugar this morning was 151. She continues on labetalol per Dr. Magana at 50 mg and now it is every 8 hours. Blood pressure this afternoon has improved, 110/58, with a pulse of 80, respiratory rate 20, temperature is 97.2. She states she is having no pain or shortness of breath. OBJECTIVE: Blood pressure 110/58, pulse 80, respirations 20, oxygen saturation 92% on room air, temperature 97.2. The patient is alert and cooperative, slight left facial droop. Pupils equal and reactive to light. Cornea and sclerae are clear. Conjunctivae is normal. Pharynx: Tongue and gums pink and moist. Tongue is midline. Neck is supple without lymphadenopathy. No thyromegaly. No goiter. Carotids 2+ without bruit. Chest: Decreased breath sounds. No wheeze or retractions. Heart is regular. Abdomen: Benign. Bowel sounds are positive. Genital/Rectal: Not done. Extremities: No cyanosis, clubbing or edema. IMPRESSION/PLAN: Status post acute right frontoparietal infarct after surgery for aortic dissection on 10/04/2018 with left hemiparesis. She continues on aspirin, statin, blood pressure control with labetalol. UTI: continues on cefdinir. Urine growing Escherichia coli. Anemia. Continues on iron. Hemoglobin and hematocrit stable at 11.5 and 25.9. Will recheck in the morning. 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 Continues on Keppra. Hypertension. Continue labetalol, currently at every 8 hours. Continue Lasix. Hypothyroidism. Continues on Synthroid. Diabetes. Continues on insulin coverage. Gastrointestinal (GI) prophylaxis. Protonix by mouth twice a day. Deep vein thrombosis (DVT) prophylaxis with heparin continues. MTDD
[2018-10-21 22:00] VITALS: BP 151/67
[2018-10-22 06:00] VITALS: BP 128/65
[2018-10-22 06:28] LABS: BASO # 0.1 10^3/uL (0.0-0.2); BASO % 0.6 % (0.0-1.0); EOS # 0.3 10^3/uL (0.0-0.50); EOS % 2.7 % (0.0-3.0); HEMATOCRIT 27.8 % (36.0-47.0); HEMOGLOBIN 8.9 g/dl (12.0-15.5); LYMPH # 1.2 10^3/uL (1.5-4.5); LYMPH % 11.5 % (24.0-44.0); MEAN CORPUSCULAR HEMOGLOBIN 29.5 pg (27.0-33.0); MEAN CORPUSCULAR VOLUME 92.1 fl (80.0-96.0); MONO % 9.4 % (0.0-5.0); NEUTROPHILS # 8.1 10^3/uL (1.8-7.7); NEUTROPHILS % 74.8 % (36.0-66.0); PLATELET COUNT, AUTOMATED 400 10^3/uL (150-450); RED BLOOD COUNT 3.02 10^6/uL (4.00-5.40); WHITE BLOOD COUNT 10.8 10^3/uL (4.0-10.0)
[2018-10-22] MEDS: LEVOTHYROXINE 75MCG TABLET (0.075MG) PO SCH (06:47)
[2018-10-22] MEDS: LABETALOL 100 MG TAB PO SCH ×3 (06:47→21:24)
[2018-10-22 06:58] LABS: ALBUMIN 2.5 GM/DL (3.2-5.2); ALT/SGPT 12 U/L (12-78); BILIRUBIN,TOTAL 0.4 MG/DL (0.2-1.0); BLOOD UREA NITROGEN 27 MG/DL (7-18); CALCIUM LEVEL 8.8 MG/DL (8.8-10.2); CARBON DIOXIDE LEVEL 28 MEQ/L (21-32); CHLORIDE LEVEL 100 MEQ/L (98-107); GLOMERULAR FILTRATION RATE > 60.0 (>39); GLUCOSE, FASTING 131 MG/DL (70-100); POTASSIUM SERUM 4.2 MEQ/L (3.5-5.1); SODIUM LEVEL 133 MEQ/L (136-145); TOTAL PROTEIN 5.8 GM/DL (6.4-8.2)
--- NOTE | 2018-10-22 07:44 | REP ---
Portable chest, 10:17 p.m., single AP view with the the patient upright: There are no comparisons. There is a large right lung infiltrate involving the upper lobe, middle lobe and probably the lower lobe. There is no lateral view. Left lung is clear. Cardiac size is normal. There are sternotomy wires. The right hilus is obscured. The left hilus is obscured. The mediastinum and skeletal structures are unremarkable. Impression: Large right lung infiltrate . Sternotomy wires. Electronically Signed by Joaquin Dallas MD 10/22/2018 07:35 A
[2018-10-22] MEDS: FOLIC ACID 1 MG TAB PO SCH (08:10)
[2018-10-22] MEDS: CALCIUM/VITAMIN D 500 MG TAB PO SCH (08:10)
[2018-10-22] MEDS: FUROSEMIDE 20 MG TAB PO SCH (08:10)
[2018-10-22] MEDS: PANTOPRAZOLE 40MG TAB (PROTONIX) PO SCH ×2 (08:10→21:24)
[2018-10-22] MEDS: levETIRAcetam 250MG TABLET (KEPPRA) PO SCH ×2 (08:10→21:23)
[2018-10-22] MEDS: ASCORBIC ACID 500 MG TAB PO SCH (08:10)
[2018-10-22] MEDS: ASPIRIN 81 MG CHEW TABLET PO SCH (08:10)
[2018-10-22] MEDS: HumaLOG INSULIN (NovoLOG) PER UNIT SC SCH ×4 (08:10→21:00)
[2018-10-22] MEDS: DOCUSATE SODIUM 100 MG CAP PO SCH ×2 (08:10→21:24)
[2018-10-22] MEDS: FERROUS GLUCONATE 324 MG TAB PO SCH ×2 (08:10→21:25)
[2018-10-22] MEDS: CEFDINIR 300 MG CAP (OMNICEF) PO SCH ×2 (08:11→21:24)
[2018-10-22] MEDS: HEPARIN SOD (PORCINE) 5000 UNITS/ML VIAL SQ SCH ×2 (08:11→21:20)
[2018-10-22] MEDS: LACTOBACILLUS ACIDOPHILUS CAP (BACID) PO SCH ×3 (08:11→17:51)
[2018-10-22] MEDS: FLUoxetine 20 MG CAP PO SCH (08:11)
--- NOTE | 2018-10-22 12:07 | IPN ---
DATE: 10/22/2018 Yaritza is seen on Acute Rehabilitation Unit, rounding for the hospitalist. She feels well. She is rather sanguine about her recent stroke, right frontal parietal lobe stroke and she tells me "these things happen, there is nothing anyone can do." Her blood pressure is under better control. Her diabetes is reasonably well controlled as well. She has not had any recent seizures. PHYSICAL EXAMINATION: Afebrile. Vital signs stable. Left hemiparesis. LUNGS: Clear. HEART: Regular rate and rhythm. ABDOMEN: Soft, nontender. EXTREMITIES: Trace to 1+ peripheral edema. LABORATORIES: CBC shows a hemoglobin stable at 8.9. Electrolytes: Sodium is up to 133. Blood sugars are generally around 150. IMPRESSION: 1. Hypertension. Blood pressure is well controlled on current regimen. 2. Diabetes. Well controlled on current regimen. Blood sugars are satisfactorily controlled. 3. Seizures. No recurrence on anticonvulsant therapy. 4. Escherichia (E) coli urinary tract infection (UTI). On Cefdinir day #4 out of 7 days. 5. Hypothyroidism. Stable on current dose of levothyroxine. 6. Right frontal parietal stroke with some apathy noted. Continue rehabilitation efforts. Her fluoxetine 20 mg daily should be continued. 7. Lower extremity edema. Continue furosemide 40 mg daily. Keep an eye on her potassium level. I have ordered a BMP for a few days from now.
[2018-10-22 14:00] VITALS: BP 130/62
--- NOTE | 2018-10-22 16:18 | IPNPDOC ---
PM&R Progress Note DATE OF SERVICE: Oct 22, 2018 [employer] Progress Note Subjective: Patient seen in therapy able to propel her own wheelchair with her legs, requiring verbal cues to keep chair from moving to the left. REVIEW OF SYSTEMS: The following is a completed review of systems and has been reviewed. Review of systems otherwise unremarkable. PAIN: Patient self reports no pain EYES: No recent vision changes EARS, NOSE, & THROAT: +dysphagia CARDIOVASCULAR: + chest pain (sternal wall pain, TTP)-resolved PULMONARY: Denies shortness of breath GASTROINTESTINAL: Denies constipation/diarrhea GENITOURINARY: +incontinence MUSCULOSKELETAL: LUE weakness NEUROLOGICAL:+ seizures, +LUE paresis and apraxia SKIN: abdominal incisions and sternal scar PSYCHIATRIC: agitated, but pleasant All other review of systems found to be negative. PHYSICAL EXAMINATION: VITAL SIGNS: Please see below. GENERAL: Pleasant and cooperative. No acute distress. mildly agitated HEENT: PERRL. Extraocular movements intact. Clear conjunctiva, left facial droop CARDIOVASCULAR: Regular rate and rhythm. No murmurs, rubs, or gallops, +TTP sternum LUNGS: Clear to auscultation bilaterally. No wheezes. No rhonchi, decreased breath sounds at bases (poor inspiratory effort) ABDOMEN: Soft, nontender, nondistended. Positive bowel sounds. Normal active bowel sounds NEUROLOGICAL: Alert and oriented to self and location, had difficulty following commands consistently, +apraxia Cranial nerves II through XII grossly intact except for left sided facial droop, extinction to touch on the left side, otherwise sensation intact to light touch EXTREMITIES: 5\\5 strength right upper extremities. 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 4/5 strength in left lower extremity. SKIN: no sacral ulcers, sternal incision healing well, abdominal incisions with mild erythema LABORATORY DATA: Please see below. ASSESSMENT:73 year-old F with past medical history of HTN, DM, CKD2 who presents status post abdominal aortic dissection repair complicated by right frontal infarct. 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 Neuro: s/p right frontal lobe infarct, c/u ASA and statin, maintain good BP control -c/u Prozac for motor recovery -new onset GCT seizures, c/u Keppra, will need neuro f/u 3. Cardio: s/p type A aortic dissection s/p repair on 10/04/18 with poorly controlled HTN with recent hypotensive episode at [facility] on 10/14, most BP meds held, was taking labetolol 100mg po TID, per d/c recs c/u on labetolol 50mg, increased to q8h, medicine consulted to assist with management- f/u with cardiac surgeon -c/u low dose lasix given recent CXR showing pulmonary edema and bilateral pleural effusions- -mild hyponatremia- c/u restrict to 1500cc and monitor, bmp ordered for tomorrow 4. Resp: monitor for infection, encourage incentive spirometry, guaifenesin or dered and ipratropium 5. Endo: pmh hypothyroidism, c/u Synthroid DM- c/u insulin coverage, and c/u to hold metformin 6. : Ucx positive for E. Coli c/p 7 day course of Cefdinir 6. DVT ppx: heparin and TEDs 7. GI ppx: protnix BID 7. Pain: Tylenol prn 9. Psych: epiodes of ICU delirum, was on seroquel qhs, c/u trazodone qhs, trazodone ordered prn agitation-stable 8. Dispo: 11/12/18 to home, progressing towards goals Allergies Coded Allergies: morphine (Verified Adverse Reaction, Mild, 10/18/18) "facial flushing" Vital Signs Vital Signs Date Time Temp Pulse Resp B/P (MAP) Pulse Ox O2 Delivery O2 Flow Rate FiO2 10/22/18 14:25 78 130/62 10/22/18 14:00 97.6 20 96 10/22/18 06:00 2.0 Laboratory Data CBC/BMP Laboratory Tests 10/22/18 05:53 Red Blood Count 3.02 L, Mean Corpuscular Volume 92.1, Mean Corpuscular Hemoglobin 29.5, Mean Corpuscular Hemoglobin Concent 32.0, Red Cell Distribution Width 16.7 H, Neutrophils (%) (Auto) 74.8 H, Lymphocytes (%) (Auto) 11.5 L, Monocytes (%) (Auto) 9.4 H, Eosinophils (%) (Auto) 2.7, Basophils (%) (Auto) 0.6, Neutrophils # (Auto) 8.1 H, Lymphocytes # (Auto) 1.2 L, Monocytes # (Auto) 1.0 H, Eosinophils # (Auto) 0.3, Basophils # (Auto) 0.1, Calcium Level 8.8, Aspartate Amino Transf (AST/SGOT) 13, Alanine Aminotransferase (ALT/SGPT) 12, Alkaline Phosphatase 168 H, Total Bilirubin 0.4, Total Protein 5.8 L, Albumin 2.5 L Labs 24H Laboratory Tests 2 10/21/18 16:52: Bedside Glucose (Misc Panel) 156H 10/21/18 19:45: Bedside Glucose (Misc Panel) 282H 10/22/18 05:53: Immature Granulocyte % (Auto) 1.0, White Blood Count 10.8H, Red Blood Count 3.02L, Hemoglobin 8.9L, Hematocrit 27.8L, Mean Corpuscular Volume 92.1, Mean Corpuscular Hemoglobin 29.5, Mean Corpuscular Hemoglobin Concent 32.0, Red Cell Distribution Width 16.7H, Platelet Count 400, Neutrophils (%) (Auto) 74.8H, Lymphocytes (%) (Auto) 11.5L, Monocytes (%) (Auto) 9.4H, Eosinophils (%) (Auto) 2.7, Basophils (%) (Auto) 0.6, Neutrophils # (Auto) 8.1H, Lymphocytes # (Auto) 1.2L, Monocytes # (Auto) 1.0H, Eosinophils # (Auto) 0.3, Basophils # (Auto) 0.1, Nucleated Red Blood Cells % (auto) 0.0, Anion Gap 5L, Glomerular Filtration Rate > 60.0, Blood Urea Nitrogen 27H, Creatinine 0.90, Sodium Level 133L, Potassium Level 4.2, Chloride Level 100, Carbon Dioxide Level 28, Calcium Level 8.8, Aspartate Amino Transf (AST/SGOT) 13, Alanine Aminotransferase (ALT/SGPT) 12, Alkaline Phosphatase 168H, Total Bilirubin 0.4, Total Protein 5.8L, Albumin 2.5L, Albumin/Globulin Ratio 0.76L 10/22/18 11:19: Bedside Glucose (Misc Panel) 148H Microbiology Microbiology 10/19/18 Blood Culture - Preliminary, Resulted No Growth after 72 hours. All specime... 10/19/18 Blood Culture - Preliminary, Resulted No Growth after 72 hours. All specime... 10/19/18 Urine Culture - Final, Complete Escherichia Coli Current Medications Current Medications Current Medications Medications (Trade) Dose Ordered Sig/Chirag Route PRN Reason Start Time Stop Time Status Last Admin Dose Admin Acetaminophen (Tylenol Tab) 650 mg Q4HP PRN PO MILD PAIN (PS 1-4) 10/18/18 16:30 10/21/18 20:40 Ascorbic Acid (Vitamin C) 500 mg DAILY PO 10/19/18 09:00 10/22/18 08:10 Aspirin (Aspirin Chewable) 81 mg DAILY PO 10/19/18 09:00 10/22/18 08:10 Bisacodyl (Dulcolax Suppository) 10 mg DAILYPRN PRN [place] CONSTIPATION 10/18/18 16:30 Calcium/Vitamin D (Oscal D) 500 mg DAILY PO 10/19/18 09:00 10/22/18 08:10 Cefdinir (Omnicef) 300 mg BID PO 10/19/18 21:00 10/26/18 09:01 10/22/18 08:11 Dextrose (Dextrose 50%) 25 ml ASDIRECTED PRN IV SEE LABEL COMMENTS 10/18/18 16:30 Docusate Sodium (Colace) 100 mg BID PO 10/18/18 21:00 10/22/18 08:10 Ferrous Gluconate (Fergon) 324 mg BID PO 10/18/18 21:00 10/22/18 08:10 Fluoxetine HCl (PROzac) 20 mg DAILY PO 10/19/18 09:00 10/22/18 08:11 Folic Acid (Folic Acid) 1 mg DAILY PO 10/19/18 09:00 10/22/18 08:10 Furosemide (Lasix) 20 mg DAILY PO 10/19/18 09:00 10/22/18 08:10 Glucagon (Glucagon) 1 mg ASDIRECTED PRN SC SEE LABEL COMMENTS 10/18/18 16:30 Glucose (Glucose) 16 GM ASDIRECTED PRN PO SEE LABEL COMMENTS 10/18/18 16:30 Heparin Sodium (Porcine) (Heparin) 5,000 units Q12H SQ 10/18/18 21:00 10/22/18 08:11 Home Med (Med Rec Complete!) ASDIRECTED XX 10/18/18 17:30 10/18/18 17:30 DC Insulin Detemir (Levemir Insulin) 10 units QHS SC 10/18/18 21:00 10/21/18 20:42 Insulin Human Lispro (HumaLOG INSULIN) SEE PROTOCOL TABLE AC SC 10/18/18 17:30 10/22/18 12:44 Insulin Human Lispro (HumaLOG INSULIN) SEE PROTOCOL TABLE QHS SC 10/18/18 21:00 10/21/18 20:42 Labetalol HCl (Normodyne, Trandate) 50 mg BID PO 10/18/18 21:00 10/19/18 07:40 DC 10/18/18 21:07 Labetalol HCl (Normodyne, Trandate) 50 mg Q8H PO 10/21/18 14:00 10/22/18 14:25 Labetalol HCl (Normodyne, Trandate) 50 mg TID PO 10/18/18 21:00 10/18/18 21:00 DC Labetalol HCl (Normodyne, Trandate) 50 mg TID PO 10/19/18 09:00 10/21/18 14:36 DC 10/21/18 09:23 Lactobacillus Acidophilus (Bacid) 1 ea WM PO 10/19/18 18:00 10/22/18 12:44 Levetiracetam (Keppra) 1,000 mg BID PO 10/18/18 21:00 10/22/18 08:10 Levothyroxine Sodium (Synthroid) 75 mcg DAILY@06 PO 10/19/18 06:00 10/22/18 06:47 Magnesium Hydroxide (Milk Of Magnesia) 30 ml DAILYPRN PRN PO CONSTIPATION 10/18/18 16:30 Pantoprazole Sodium (Protonix) 40 mg BID PO 10/18/18 21:00 10/22/18 08:10 Pantoprazole Sodium (Protonix) 40 mg QHS PO 10/18/18 21:00 10/18/18 21:00 DC Rosuvastatin Calcium (Crestor) 20 mg QHS PO 10/18/18 21:00 10/21/18 20:41 Senna (Senokot) 1 tab QHS PO 10/18/18 21:00 10/21/18 20:41 Trazodone HCl (Desyrel) 25 mg Q6HP PRN PO AGITATION 10/18/18 16:30 10/19/18 03:07 Trazodone HCl (Desyrel) 25 mg QHS PO 10/21/18 21:00 10/21/18 20:40 Trazodone HCl (Desyrel) 50 mg QHS PO 10/18/18 21:00 10/21/18 14:38 DC 10/20/18 20:19 CHRIS CORDON MD Oct 22, 2018 16:18
[2018-10-22] MEDS: guaiFENesin 200 MG TAB PO SCH ×2 (17:51→21:29)
[2018-10-22] MEDS: IPRATROPIUM 0.02% SOLN 0.5MG/2.5 ML NEB INH SCH (19:27)
[2018-10-22] MEDS: ROSUVASTATIN 10 MG TAB (CRESTOR) PO SCH (21:24)
[2018-10-22] MEDS: SENNA 8.6 MG TAB (SENOKOT) PO SCH (21:24)
[2018-10-22] MEDS: LEVEMIR (INSULIN DETEMIR) 1 UNITS/0.01ML SC SCH (21:26)
[2018-10-22] MEDS: traZODone 25MG PER 1/2 TABLET PO SCH (21:29)
[2018-10-22 22:00] VITALS: BP 135/65
[2018-10-23 05:46] LABS: BLOOD UREA NITROGEN 26 MG/DL (7-18); C REACTIVE PROTEIN QUANTITATIV 9.25 MG/DL (0.00-0.30); CALCIUM LEVEL 8.7 MG/DL (8.8-10.2); CARBON DIOXIDE LEVEL 27 MEQ/L (21-32); CHLORIDE LEVEL 101 MEQ/L (98-107); CREATININE FOR GFR 0.75 MG/DL (0.55-1.30); GLOMERULAR FILTRATION RATE > 60.0 (>39); GLUCOSE, FASTING 101 MG/DL (70-100); POTASSIUM SERUM 3.9 MEQ/L (3.5-5.1); SODIUM LEVEL 136 MEQ/L (136-145)
[2018-10-23] MEDS: LABETALOL 100 MG TAB PO SCH ×3 (05:53→21:49)
[2018-10-23 06:00] VITALS: BP 144/69
[2018-10-23] MEDS: LEVOTHYROXINE 75MCG TABLET (0.075MG) PO SCH (06:00)
[2018-10-23] MEDS: HumaLOG INSULIN (NovoLOG) PER UNIT SC SCH ×4 (08:21→20:54)
[2018-10-23] MEDS: CEFDINIR 300 MG CAP (OMNICEF) PO SCH ×2 (08:22→20:30)
[2018-10-23] MEDS: PANTOPRAZOLE 40MG TAB (PROTONIX) PO SCH ×2 (08:22→20:29)
[2018-10-23] MEDS: CALCIUM/VITAMIN D 500 MG TAB PO SCH (08:22)
[2018-10-23] MEDS: FUROSEMIDE 20 MG TAB PO SCH (08:22)
[2018-10-23] MEDS: HEPARIN SOD (PORCINE) 5000 UNITS/ML VIAL SQ SCH ×2 (08:22→20:54)
[2018-10-23] MEDS: FOLIC ACID 1 MG TAB PO SCH (08:22)
[2018-10-23] MEDS: FERROUS GLUCONATE 324 MG TAB PO SCH ×2 (08:22→20:29)
[2018-10-23] MEDS: IPRATROPIUM 0.02% SOLN 0.5MG/2.5 ML NEB INH SCH ×2 (08:22→22:00)
[2018-10-23] MEDS: DOCUSATE SODIUM 100 MG CAP PO SCH ×2 (08:22→20:29)
[2018-10-23] MEDS: FLUoxetine 20 MG CAP PO SCH (08:22)
[2018-10-23] MEDS: guaiFENesin 200 MG TAB PO SCH ×3 (08:22→20:30)
[2018-10-23] MEDS: ASPIRIN 81 MG CHEW TABLET PO SCH (08:22)
[2018-10-23] MEDS: ASCORBIC ACID 500 MG TAB PO SCH (08:22)
[2018-10-23] MEDS: LACTOBACILLUS ACIDOPHILUS CAP (BACID) PO SCH ×3 (08:22→16:59)
--- NOTE | 2018-10-23 09:28 | IPNPDOC ---
PM&R Progress Note DATE OF SERVICE: Oct 23, 2018 [employer] Progress Note Subjective: Patient seen in her room with her daughter in law, stating she feels tired, but was able to participate in therapy. She denies fevers or chills, but still has a mild cough. REVIEW OF SYSTEMS: The following is a completed review of systems and has been reviewed. Review of systems otherwise unremarkable. PAIN: Patient self reports no pain EYES: No recent vision changes EARS, NOSE, & THROAT: +dysphagia CARDIOVASCULAR: + chest pain (sternal wall pain, TTP)-resolved PULMONARY: Denies shortness of breath GASTROINTESTINAL: Denies constipation/diarrhea GENITOURINARY: +incontinence MUSCULOSKELETAL: LUE weakness NEUROLOGICAL:+ seizures, +LUE paresis and apraxia SKIN: abdominal incisions and sternal scar PSYCHIATRIC: agitated, but pleasant All other review of systems found to be negative. PHYSICAL EXAMINATION: VITAL SIGNS: Please see below. GENERAL: Pleasant and cooperative. No acute distress. mildly agitated HEENT: PERRL. Extraocular movements intact. Clear conjunctiva, left facial droop CARDIOVASCULAR: Regular rate and rhythm. No murmurs, rubs, or gallops, +TTP sternum LUNGS: Clear to auscultation bilaterally. No wheezes. No rhonchi, decreased breath sounds at bases (poor inspiratory effort) ABDOMEN: Soft, nontender, nondistended. Positive bowel sounds. Normal active bowel sounds NEUROLOGICAL: Alert and oriented to self and location, had difficulty following commands consistently, +apraxia Cranial nerves II through XII grossly intact except for left sided facial droop, extinction to touch on the left side, otherwise sensation intact to light touch EXTREMITIES: 5\\5 strength right upper extremities. 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 4/5 strength in left lower extremity. SKIN: no sacral ulcers, sternal incision healing well, abdominal incisions with mild erythema LABORATORY DATA: Please see below. ASSESSMENT:73 year-old F with past medical history of HTN, DM, CKD2 who presents status post abdominal aortic dissection repair complicated by right frontal infarct. 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 Neuro: s/p right frontal lobe infarct, c/u ASA and statin, maintain good BP control -c/u Prozac for motor recovery -new onset GCT seizures, c/u Keppra, will need neuro f/u 3. 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 Resp: monitor for infection, encourage incentive spirometry, guaifenesin ordered and ipratropium 5. Endo: pmh hypothyroidism, c/u Synthroid DM- c/u insulin coverage, and c/u to hold metformin 6. : Ucx positive for E. Coli c/u 7 day course of Cefdinir 6. DVT ppx: heparin and TEDs 7. GI ppx: protnix BID 7. Pain: Tylenol prn 9. Psych: epiodes of ICU delirum, was on seroquel qhs, c/u trazodone qhs, trazodone ordered prn agitation-stable 8. Dispo: 11/12/18 to home, progressing towards goals Allergies Coded Allergies: morphine (Verified Adverse Reaction, Mild, 10/18/18) "facial flushing" Vital Signs Vital Signs Date Time Temp Pulse Resp B/P (MAP) Pulse Ox O2 Delivery O2 Flow Rate FiO2 10/23/18 06:00 97.9 78 20 144/69 (94) 93 10/22/18 06:00 2.0 Laboratory Data CBC/BMP Laboratory Tests 10/23/18 05:02 Calcium Level 8.7 L Labs 24H Laboratory Tests 2 10/22/18 11:19: Bedside Glucose (Misc Panel) 148H 10/22/18 16:31: Bedside Glucose (Misc Panel) 173H 10/22/18 19:53: Bedside Glucose (Misc Panel) 200H 10/23/18 05:02: Anion Gap 8, Glomerular Filtration Rate > 60.0, Blood Urea Nitrogen 26H, Creatinine 0.75, Sodium Level 136, Potassium Level 3.9, Chloride Level 101, Carbon Dioxide Level 27, Calcium Level 8.7L, C-Reactive Protein, Quantitative 9.25H Microbiology Microbiology 10/19/18 Blood Culture - Preliminary, Resulted No Growth after 72 hours. All specime... 10/19/18 Blood Culture - Preliminary, Resulted No Growth after 72 hours. All specime... 10/19/18 Urine Culture - Final, Complete Escherichia Coli Current Medications Current Medications Current Medications Medications (Trade) Dose Ordered Sig/Chirag Route PRN Reason Start Time Stop Time Status Last Admin Dose Admin Acetaminophen (Tylenol Tab) 650 mg Q4HP PRN PO MILD PAIN (PS 1-4) 10/18/18 16:30 10/21/18 20:40 Ascorbic Acid (Vitamin C) 500 mg DAILY PO 10/19/18 09:00 10/23/18 08:22 Aspirin (Aspirin Chewable) 81 mg DAILY PO 10/19/18 09:00 10/23/18 08:22 Bisacodyl (Dulcolax Suppository) 10 mg DAILYPRN PRN IN CONSTIPATION 10/18/18 16:30 Calcium/Vitamin D (Oscal D) 500 mg DAILY PO 10/19/18 09:00 10/23/18 08:22 Cefdinir (Omnicef) 300 mg BID PO 10/19/18 21:00 10/26/18 09:01 10/23/18 08:22 Dextrose (Dextrose 50%) 25 ml ASDIRECTED PRN IV SEE LABEL COMMENTS 10/18/18 16:30 Docusate Sodium (Colace) 100 mg BID PO 10/18/18 21:00 10/23/18 08:22 Ferrous Gluconate (Fergon) 324 mg BID PO 10/18/18 21:00 10/23/18 08:22 Fluoxetine HCl (PROzac) 20 mg DAILY PO 10/19/18 09:00 10/23/18 08:22 Folic Acid (Folic Acid) 1 mg DAILY PO 10/19/18 09:00 10/23/18 08:22 Furosemide (Lasix) 20 mg DAILY PO 10/19/18 09:00 10/23/18 08:22 Glucagon (Glucagon) 1 mg ASDIRECTED PRN SC SEE LABEL COMMENTS 10/18/18 16:30 Glucose (Glucose) 16 GM ASDIRECTED PRN PO SEE LABEL COMMENTS 10/18/18 16:30 Guaifenesin (Robitussin Tab) 400 mg TID PO 10/22/18 16:15 10/23/18 08:22 Heparin Sodium (Porcine) (Heparin) 5,000 units Q12H SQ 10/18/18 21:00 10/23/18 08:22 Home Med (Med Rec Complete!) ASDIRECTED XX 10/18/18 17:30 10/18/18 17:30 DC Insulin Detemir (Levemir Insulin) 10 units QHS SC 10/18/18 21:00 10/22/18 21:26 Insulin Human Lispro (HumaLOG INSULIN) SEE PROTOCOL TABLE AC SC 10/18/18 17:30 10/23/18 08:21 Insulin Human Lispro (HumaLOG INSULIN) SEE PROTOCOL TABLE QHS SC 10/18/18 21:00 10/21/18 20:42 Ipratropium [place] (Atrovent 0.02%) 0.5 mg RBID INH 10/22/18 20:00 10/23/18 08:22 Labetalol HCl (Normodyne, Trandate) 50 mg BID PO 10/18/18 21:00 10/19/18 07:40 DC 10/18/18 21:07 Labetalol HCl (Normodyne, Trandate) 50 mg Q8H PO 10/21/18 14:00 10/23/18 05:53 Labetalol HCl (Normodyne, Trandate) 50 mg TID PO 10/18/18 21:00 10/18/18 21:00 DC Labetalol HCl (Normodyne, Trandate) 50 mg TID PO 10/19/18 09:00 10/21/18 14:36 DC 10/21/18 09:23 Lactobacillus Acidophilus (Bacid) 1 ea WM PO 10/19/18 18:00 10/23/18 08:22 Levetiracetam (Keppra) 1,000 mg BID PO 10/18/18 21:00 10/22/18 21:23 Levothyroxine Sodium (Synthroid) 75 mcg DAILY@06 PO 10/19/18 06:00 10/22/18 06:47 Magnesium Hydroxide (Milk Of Magnesia) 30 ml DAILYPRN PRN PO CONSTIPATION 10/18/18 16:30 Pantoprazole Sodium (Protonix) 40 mg BID PO 10/18/18 21:00 10/23/18 08:22 Pantoprazole Sodium (Protonix) 40 mg QHS PO 10/18/18 21:00 10/18/18 21:00 DC Rosuvastatin Calcium (Crestor) 20 mg QHS PO 10/18/18 21:00 10/22/18 21:24 Senna (Senokot) 1 tab QHS PO 10/18/18 21:00 10/22/18 21:24 Trazodone HCl (Desyrel) 25 mg Q6HP PRN PO AGITATION 10/18/18 16:30 10/19/18 03:07 Trazodone HCl (Desyrel) 25 mg QHS PO 10/21/18 21:00 10/22/18 21:29 Trazodone HCl (Desyrel) 50 mg QHS PO 10/18/18 21:00 10/21/18 14:38 DC 10/20/18 20:19 CHRIS CORDON MD Oct 23, 2018 09:28
[2018-10-23] MEDS: levETIRAcetam 250MG TABLET (KEPPRA) PO SCH ×2 (09:41→20:30)
[2018-10-23 14:00] VITALS: BP 144/67
[2018-10-23] MEDS: ACETAMINOPHEN TAB 650MG DOSE (2X325MG) PO PRN ×2 (14:07→20:30)
[2018-10-23] MEDS: SENNA 8.6 MG TAB (SENOKOT) PO SCH (20:29)
[2018-10-23 20:30] VITALS: BP 109/60
[2018-10-23] MEDS: traZODone 25MG PER 1/2 TABLET PO SCH (20:30)
[2018-10-23] MEDS: ROSUVASTATIN 10 MG TAB (CRESTOR) PO SCH (20:30)
[2018-10-23] MEDS: LEVEMIR (INSULIN DETEMIR) 1 UNITS/0.01ML SC SCH (20:54)
[2018-10-24] MEDS: LABETALOL 100 MG TAB PO SCH ×3 (05:29→21:11)
[2018-10-24] MEDS: LEVOTHYROXINE 75MCG TABLET (0.075MG) PO SCH (05:30)
[2018-10-24 06:00] VITALS: BP 158/80
[2018-10-24 07:13] LABS: HEMATOCRIT 29.3 % (36.0-47.0); HEMOGLOBIN 9.2 g/dl (12.0-15.5); MEAN CORPUSCULAR HGB CONC 31.4 g/dl (32.0-36.5); MEAN CORPUSCULAR VOLUME 89.3 fl (80.0-96.0); PLATELET COUNT, AUTOMATED 459 10^3/uL (150-450); RED BLOOD COUNT 3.28 10^6/uL (4.00-5.40)
[2018-10-24 07:31] LABS: BLOOD UREA NITROGEN 23 MG/DL (7-18); CALCIUM LEVEL 8.6 MG/DL (8.8-10.2); CARBON DIOXIDE LEVEL 29 MEQ/L (21-32); CHLORIDE LEVEL 99 MEQ/L (98-107); CREATININE FOR GFR 0.77 MG/DL (0.55-1.30); GLOMERULAR FILTRATION RATE > 60.0 (>39); GLUCOSE, FASTING 101 MG/DL (70-100); POTASSIUM SERUM 3.7 MEQ/L (3.5-5.1); SODIUM LEVEL 136 MEQ/L (136-145)
[2018-10-24] MEDS: IPRATROPIUM 0.02% SOLN 0.5MG/2.5 ML NEB INH SCH ×2 (08:28→21:06)
[2018-10-24] MEDS: guaiFENesin 200 MG TAB PO SCH ×3 (08:30→19:48)
[2018-10-24] MEDS: PANTOPRAZOLE 40MG TAB (PROTONIX) PO SCH ×2 (08:30→19:48)
[2018-10-24] MEDS: FERROUS GLUCONATE 324 MG TAB PO SCH ×2 (08:30→19:48)
[2018-10-24] MEDS: CEFDINIR 300 MG CAP (OMNICEF) PO SCH ×2 (08:30→19:48)
[2018-10-24] MEDS: FLUoxetine 20 MG CAP PO SCH (08:30)
[2018-10-24] MEDS: ASPIRIN 81 MG CHEW TABLET PO SCH (08:30)
[2018-10-24] MEDS: DOCUSATE SODIUM 100 MG CAP PO SCH ×2 (08:30→19:48)
[2018-10-24] MEDS: LACTOBACILLUS ACIDOPHILUS CAP (BACID) PO SCH ×3 (08:30→17:31)
[2018-10-24] MEDS: ASCORBIC ACID 500 MG TAB PO SCH (08:30)
[2018-10-24] MEDS: FOLIC ACID 1 MG TAB PO SCH (08:30)
[2018-10-24] MEDS: CALCIUM/VITAMIN D 500 MG TAB PO SCH (08:30)
[2018-10-24] MEDS: FUROSEMIDE 20 MG TAB PO SCH (08:34)
[2018-10-24] MEDS: levETIRAcetam 250MG TABLET (KEPPRA) PO SCH ×2 (08:34→19:48)
[2018-10-24] MEDS: HEPARIN SOD (PORCINE) 5000 UNITS/ML VIAL SQ SCH ×2 (08:35→19:49)
[2018-10-24] MEDS: HumaLOG INSULIN (NovoLOG) PER UNIT SC SCH ×4 (08:35→21:00)
[2018-10-24 14:00] VITALS: BP 109/57
--- NOTE | 2018-10-24 15:24 | IPNPDOC ---
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 REVIEW OF SYSTEMS: The following is a completed review of systems and has been reviewed. Review of systems otherwise unremarkable. PAIN: Patient self reports no pain EYES: No recent vision changes EARS, NOSE, & THROAT: +dysphagia CARDIOVASCULAR: + chest pain (sternal wall pain, TTP)-resolved PULMONARY: Denies shortness of breath GASTROINTESTINAL: Denies constipation/diarrhea GENITOURINARY: +incontinence MUSCULOSKELETAL: LUE weakness NEUROLOGICAL:+ seizures, +LUE paresis and apraxia SKIN: abdominal incisions and sternal scar PSYCHIATRIC: agitated, but pleasant All other review of systems found to be negative. PHYSICAL EXAMINATION: VITAL SIGNS: Please see below. GENERAL: Pleasant and cooperative. No acute distress. mildly agitated HEENT: PERRL. Extraocular movements intact. Clear conjunctiva, left facial droop CARDIOVASCULAR: Regular rate and rhythm. No murmurs, rubs, or gallops, +TTP st ernum LUNGS: Clear to auscultation bilaterally. No wheezes. No rhonchi, decreased breath sounds at bases (poor inspiratory effort) ABDOMEN: Soft, nontender, nondistended. Positive bowel sounds. Normal active bowel sounds NEUROLOGICAL: Alert and oriented to self and location, had difficulty following commands consistently, +apraxia Cranial nerves II through XII grossly intact except for left sided facial droop, extinction to touch on the left side, otherwise sensation intact to light touch EXTREMITIES: 5\\5 strength right upper extremities. 3/5 left elbow flexors/extensors, 2/5 senior it security analyst and wrist extension 5\\5 strength right lower extremity. 4/5 strength in left lower extremity. SKIN: no sacral ulcers, sternal incision healing well, abdominal incisions with mild erythema LABORATORY DATA: Please see below. ASSESSMENT:73 year-old F with past medical history of HTN, DM, CKD2 who pres ents status post abdominal aortic dissection repair complicated by right frontal infarct. 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 Neuro: s/p right frontal lobe infarct, c/u ASA and statin, maintain good BP control -c/u Prozac for motor recovery, switch to qHS -new onset GCT seizures, c/u Keppra, will need neuro f/u- ordering Keppra levels today and will adjust prn, may be contributing to patients low energy 3. 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 Resp: monitor for infection, encourage incentive spirometry, guaifenesin ordered and ipratropium 5. Endo: pmh hypothyroidism, c/u Synthroid DM- c/u insulin coverage, and c/u to hold metformin 6. : Ucx positive for E. Coli c/u 7 day course of Cefdinir, leukocytosis resolved 6. DVT ppx: heparin and TEDs 7. GI ppx: protnix BID 7. Pain: Tylenol prn 9. 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 Dispo: 11/12/18 to home, progressing towards goals Allergies Coded Allergies: morphine (Verified Adverse Reaction, Mild, 10/18/18) "facial flushing" Vital Signs Vital Signs Date Time Temp Pulse Resp B/P (MAP) Pulse Ox O2 Delivery O2 Flow Rate FiO2 10/24/18 14:00 97.7 95 17 109/57 (74) 93 10/22/18 06:00 2.0 Laboratory Data CBC/BMP Laboratory Tests 10/24/18 06:52 Red Blood Count 3.28 L, Mean Corpuscular Volume 89.3, Mean Corpuscular Hemoglobin 28.0, Mean Corpuscular Hemoglobin Concent 31.4 L, Red Cell Distribution Width 16.5 H, Calcium Level 8.6 L Labs 24H Laboratory Tests 2 10/23/18 16:37: Bedside Glucose (Misc Panel) 228H 10/23/18 19:48: Bedside Glucose (Misc Panel) 212H 10/24/18 06:52: Nucleated Red Blood Cells % (auto) 0.0, Anion Gap 8, Glomerular Filtration Rate > 60.0, Blood Urea Nitrogen 23H, Creatinine 0.77, Sodium Level 136, Potassium Level 3.7, Chloride Level 99, Carbon Dioxide Level 29, Calcium Level 8.6L 10/24/18 07:06: Bedside Glucose (Misc Panel) 117H 10/24/18 12:01: Bedside Glucose (Misc Panel) 130H 10/24/18 12:15: Microbiology Microbiology 10/19/18 Blood Culture - Final, Complete NO GROWTH AFTER 5 DAYS 10/19/18 Blood Culture - Final, Complete NO GROWTH AFTER 5 DAYS 10/19/18 Urine Culture - Final, Complete Escherichia Coli Current Medications Current Medications Current Medications Medications (Trade) Dose Ordered Sig/Chirag Route PRN Reason Start Time Stop Time Status Last Admin Dose Admin Acetaminophen (Tylenol Tab) 650 mg Q4HP PRN PO MILD PAIN (PS 1-4) 10/18/18 16:30 10/23/18 20:30 Ascorbic Acid (Vitamin C) 500 mg DAILY PO 10/19/18 09:00 10/24/18 08:30 Aspirin (Aspirin Chewable) 81 mg DAILY PO 10/19/18 09:00 10/24/18 08:30 Bisacodyl (Dulcolax Suppository) 10 mg DAILYPRN PRN [place] CONSTIPATION 10/18/18 16:30 Calcium/Vitamin D (Oscal D) 500 mg DAILY PO 10/19/18 09:00 10/24/18 08:30 Cefdinir (Omnicef) 300 mg BID PO 10/19/18 21:00 10/26/18 09:01 10/24/18 08:30 Dextrose (Dextrose 50%) 25 ml ASDIRECTED PRN IV SEE LABEL COMMENTS 10/18/18 16:30 Docusate Sodium (Colace) 100 mg BID PO 10/18/18 21:00 10/24/18 08:30 Ferrous Gluconate (Fergon) 324 mg BID PO 10/18/18 21:00 10/24/18 08:30 Fluoxetine HCl (PROzac) 20 mg DAILY PO 10/19/18 09:00 10/24/18 11:52 DC 10/24/18 08:30 Fluoxetine HCl (PROzac) 20 mg QHS PO 10/25/18 21:00 Folic Acid (Folic Acid) 1 mg DAILY PO 10/19/18 09:00 10/24/18 08:30 Furosemide (Lasix) 20 mg DAILY PO 10/19/18 09:00 10/24/18 08:34 Glucagon (Glucagon) 1 mg ASDIRECTED PRN SC SEE LABEL COMMENTS 10/18/18 16:30 Glucose (Glucose) 16 GM ASDIRECTED PRN PO SEE LABEL COMMENTS 10/18/18 16:30 Guaifenesin (Robitussin Tab) 400 mg TID PO 10/22/18 16:15 10/24/18 08:30 Heparin Sodium (Porcine) (Heparin) 5,000 units Q12H SQ 10/18/18 21:00 10/24/18 08:35 Home Med (Med Rec Complete!) ASDIRECTED XX 10/18/18 17:30 10/18/18 17:30 DC Insulin Detemir (Levemir Insulin) 10 units QHS SC 10/18/18 21:00 10/23/18 20:54 Insulin Human Lispro (HumaLOG INSULIN) SEE PROTOCOL TABLE AC SC 10/18/18 17:30 10/24/18 12:16 Insulin Human Lispro (HumaLOG INSULIN) SEE PROTOCOL TABLE QHS SC 10/18/18 21:00 10/21/18 20:42 Ipratropium [place] (Atrovent 0.02%) 0.5 mg RBID INH 10/22/18 20:00 10/24/18 08:28 Labetalol HCl (Normodyne, Trandate) 50 mg BID PO 10/18/18 21:00 10/19/18 07:40 DC 10/18/18 21:07 Labetalol HCl (Normodyne, Trandate) 50 mg Q8H PO 10/21/18 14:00 10/24/18 05:29 Labetalol HCl (Normodyne, Trandate) 50 mg TID PO 10/18/18 21:00 10/18/18 21:00 DC Labetalol HCl (Normodyne, Trandate) 50 mg TID PO 10/19/18 09:00 10/21/18 14:36 DC 10/21/18 09:23 Lactobacillus Acidophilus (Bacid) 1 ea WM PO 10/19/18 18:00 10/24/18 12:16 Levetiracetam (Keppra) 1,000 mg BID PO 10/18/18 21:00 10/24/18 08:34 Levothyroxine Sodium (Synthroid) 75 mcg DAILY@06 PO 10/19/18 06:00 10/24/18 05:30 Magnesium Hydroxide (Milk Of Magnesia) 30 ml DAILYPRN PRN PO CONSTIPATION 10/18/18 16:30 Pantoprazole Sodium (Protonix) 40 mg BID PO 10/18/18 21:00 10/24/18 08:30 Pantoprazole Sodium (Protonix) 40 mg QHS PO 10/18/18 21:00 10/18/18 21:00 DC Rosuvastatin Calcium (Crestor) 20 mg QHS PO 10/18/18 21:00 10/23/18 20:30 Senna (Senokot) 1 tab QHS PO 10/18/18 21:00 10/23/18 20:29 Trazodone HCl (Desyrel) 25 mg Q6HP PRN PO AGITATION 10/18/18 16:30 10/24/18 11:53 DC 10/19/18 03:07 Trazodone HCl (Desyrel) 25 mg QHS PO 10/21/18 21:00 10/24/18 11:53 DC 10/23/18 20:30 Trazodone HCl (Desyrel) 50 mg QHS PO 10/18/18 21:00 10/21/18 14:38 DC 10/20/18 20:19 CHRIS CORDON MD Oct 24, 2018 15:24
[2018-10-24] MEDS: SENNA 8.6 MG TAB (SENOKOT) PO SCH (19:48)
[2018-10-24] MEDS: ROSUVASTATIN 10 MG TAB (CRESTOR) PO SCH (19:48)
[2018-10-24] MEDS: LEVEMIR (INSULIN DETEMIR) 1 UNITS/0.01ML SC SCH (19:48)
[2018-10-24] MEDS: ACETAMINOPHEN TAB 650MG DOSE (2X325MG) PO PRN (19:49)
[2018-10-24 20:00] VITALS: BP 155/77
[2018-10-25] MEDS: ACETAMINOPHEN TAB 650MG DOSE (2X325MG) PO PRN ×3 (02:36→18:12)
[2018-10-25] MEDS: LEVOTHYROXINE 75MCG TABLET (0.075MG) PO SCH (05:42)
[2018-10-25] MEDS: LABETALOL 100 MG TAB PO SCH ×3 (05:42→22:08)
[2018-10-25 06:00] VITALS: BP 134/72
[2018-10-25] MEDS: HumaLOG INSULIN (NovoLOG) PER UNIT SC SCH ×4 (07:30→21:00)
[2018-10-25] MEDS: ANALGESIC BALM CRM 120 GM TOP SCH ×3 (09:00→22:12)
[2018-10-25] MEDS: CALCIUM/VITAMIN D 500 MG TAB PO SCH (09:02)
[2018-10-25] MEDS: guaiFENesin 200 MG TAB PO SCH ×3 (09:02→22:06)
[2018-10-25] MEDS: DOCUSATE SODIUM 100 MG CAP PO SCH ×2 (09:02→22:06)
[2018-10-25] MEDS: HEPARIN SOD (PORCINE) 5000 UNITS/ML VIAL SQ SCH ×2 (09:02→22:12)
[2018-10-25] MEDS: PANTOPRAZOLE 40MG TAB (PROTONIX) PO SCH ×2 (09:02→22:09)
[2018-10-25] MEDS: ASPIRIN 81 MG CHEW TABLET PO SCH (09:02)
[2018-10-25] MEDS: ASCORBIC ACID 500 MG TAB PO SCH (09:02)
[2018-10-25] MEDS: levETIRAcetam 250MG TABLET (KEPPRA) PO SCH ×2 (09:02→22:09)
[2018-10-25] MEDS: FOLIC ACID 1 MG TAB PO SCH (09:02)
[2018-10-25] MEDS: LACTOBACILLUS ACIDOPHILUS CAP (BACID) PO SCH ×3 (09:02→17:28)
[2018-10-25] MEDS: CEFDINIR 300 MG CAP (OMNICEF) PO SCH ×2 (09:02→22:06)
[2018-10-25] MEDS: FERROUS GLUCONATE 324 MG TAB PO SCH ×2 (09:02→22:08)
[2018-10-25] MEDS: FUROSEMIDE 20 MG TAB PO SCH (09:03)
[2018-10-25] MEDS: IPRATROPIUM 0.02% SOLN 0.5MG/2.5 ML NEB INH SCH ×2 (11:10→19:46)
[2018-10-25 14:00] VITALS: BP 134/71
[2018-10-25 20:00] VITALS: BP 137/71
[2018-10-25] MEDS: SENNA 8.6 MG TAB (SENOKOT) PO SCH (22:06)
[2018-10-25] MEDS: ROSUVASTATIN 10 MG TAB (CRESTOR) PO SCH (22:06)
[2018-10-25] MEDS: FLUoxetine 20 MG CAP PO SCH (22:07)
[2018-10-25] MEDS: LEVEMIR (INSULIN DETEMIR) 1 UNITS/0.01ML SC SCH (22:16)
[2018-10-26] MEDS: LEVOTHYROXINE 75MCG TABLET (0.075MG) PO SCH (05:44)
[2018-10-26] MEDS: LABETALOL 100 MG TAB PO SCH ×3 (05:45→21:27)
[2018-10-26 06:00] VITALS: BP 176/82
[2018-10-26] MEDS: IPRATROPIUM 0.02% SOLN 0.5MG/2.5 ML NEB INH SCH ×2 (07:48→20:03)
[2018-10-26] MEDS: HEPARIN SOD (PORCINE) 5000 UNITS/ML VIAL SQ SCH ×2 (08:53→21:30)
[2018-10-26] MEDS: HumaLOG INSULIN (NovoLOG) PER UNIT SC SCH ×4 (08:54→21:00)
[2018-10-26] MEDS: levETIRAcetam 250MG TABLET (KEPPRA) PO SCH (08:56)
[2018-10-26] MEDS: ASCORBIC ACID 500 MG TAB PO SCH (08:56)
[2018-10-26] MEDS: PANTOPRAZOLE 40MG TAB (PROTONIX) PO SCH ×2 (08:57→21:27)
[2018-10-26] MEDS: FERROUS GLUCONATE 324 MG TAB PO SCH ×2 (08:57→21:26)
[2018-10-26] MEDS: DOCUSATE SODIUM 100 MG CAP PO SCH ×2 (08:57→21:28)
[2018-10-26] MEDS: FUROSEMIDE 20 MG TAB PO SCH (08:57)
[2018-10-26] MEDS: CALCIUM/VITAMIN D 500 MG TAB PO SCH (08:57)
[2018-10-26] MEDS: FOLIC ACID 1 MG TAB PO SCH (08:57)
[2018-10-26] MEDS: ASPIRIN 81 MG CHEW TABLET PO SCH (08:59)
[2018-10-26] MEDS: CEFDINIR 300 MG CAP (OMNICEF) PO SCH ×3 (08:59→21:26)
[2018-10-26] MEDS: guaiFENesin 200 MG TAB PO SCH ×3 (08:59→21:28)
[2018-10-26] MEDS: LACTOBACILLUS ACIDOPHILUS CAP (BACID) PO SCH ×3 (08:59→18:11)
[2018-10-26] MEDS: ACETAMINOPHEN TAB 650MG DOSE (2X325MG) PO PRN (08:59)
[2018-10-26] MEDS: ANALGESIC BALM CRM 120 GM TOP SCH ×3 (09:01→21:29)
[2018-10-26 12:52] LABS: HEMATOCRIT 30.3 % (36.0-47.0); HEMOGLOBIN 9.6 g/dl (12.0-15.5); MEAN CORPUSCULAR HEMOGLOBIN 29.1 pg (27.0-33.0); MEAN CORPUSCULAR HGB CONC 31.7 g/dl (32.0-36.5); MEAN CORPUSCULAR VOLUME 91.8 fl (80.0-96.0); PLATELET COUNT, AUTOMATED 443 10^3/uL (150-450); WHITE BLOOD COUNT 12.5 10^3/uL (4.0-10.0)
[2018-10-26 13:15] LABS: ALBUMIN 2.6 GM/DL (3.2-5.2); ALT/SGPT 16 U/L (12-78); BILIRUBIN,TOTAL 0.4 MG/DL (0.2-1.0); BLOOD UREA NITROGEN 16 MG/DL (7-18); CARBON DIOXIDE LEVEL 30 MEQ/L (21-32); CHLORIDE LEVEL 100 MEQ/L (98-107); CREATININE FOR GFR 0.82 MG/DL (0.55-1.30); GLOMERULAR FILTRATION RATE > 60.0 (>39); GLUCOSE, FASTING 139 MG/DL (70-100); POTASSIUM SERUM 3.8 MEQ/L (3.5-5.1); SODIUM LEVEL 135 MEQ/L (136-145); TOTAL PROTEIN 6.1 GM/DL (6.4-8.2)
--- NOTE | 2018-10-26 14:10 | REP ---
Portable chest, 01:27 p.m., single AP view with the patient sitting: Comparison is 2018. There is a large right pleural effusion as an interval change. The previous right lung infiltrate has decreased. The there is a large hiatal hernia. I suspect atelectasis in the left lower lobe adjacent to the hiatal hernia. The left lung is otherwise clear. Cardiac size is normal. The jey, mediastinum, skeletal structures are unremarkable. There are sternotomy wires, unchanged. Impression: New large right pleural effusion. The previous right lung infiltrate has resolved. Large hiatal hernia. Electronically Signed by Joaquin Dallas MD 10/26/2018 02:01 P
--- NOTE | 2018-10-26 14:10 | REP ---
CT of the brain without IV contrast: There are no comparisons. There is no hemorrhage. There is no edema, mass effect or midline shift. There is mild diffuse volume loss. The visualized paranasal sinuses and mastoids are unremarkable. Impression: There is no hemorrhage, acute infarct or mass. There is mild diffuse volume loss. Electronically Signed by Joaquin Dallas MD 10/26/2018 02:01 P
[2018-10-26 14:19] LABS: APPEARANCE, URINE CLEAR (CLEAR); BACTERIA, URINE AUTO NEGATIVE (NEGATIVE); BILIRUBIN, URINE AUTO NEGATIVE (NEGATIVE); BLOOD, URINE BLOOD NEGATIVE (NEGATIVE); COLOR, URINE STRAW (YELLOW); GLUCOSE, URINE (UA) AUTO NEGATIVE (NEGATIVE); KETONE, URINE AUTO NEGATIVE (NEGATIVE); LEUKOCYTE ESTERASE, URINE AUTO NEGATIVE (NEGATIVE); MUCUS, URINE SMALL (NEGATIVE); NITRITE, URINE AUTO NEGATIVE (NEGATIVE); PROTEIN, URINE AUTO NEGATIVE (NEGATIVE); RBC, URINE AUTO 1 /HPF (0-3); SPECIFIC GRAVITY URINE AUTO 1.008 (1.002-1.035); SQUAMOUS EPITHELIAL CELL UR AU 0 /HPF (0-6); UROBILINOGEN, URINE AUTO 0.2 mg/dL (0.0-2.0); WBC, URINE AUTO 1 /HPF (0-3)
[2018-10-26 18:00] VITALS: BP 141/77
[2018-10-26 20:00] VITALS: BP 142/75
[2018-10-26] MEDS: SENNA 8.6 MG TAB (SENOKOT) PO SCH (21:27)
[2018-10-26] MEDS: ROSUVASTATIN 10 MG TAB (CRESTOR) PO SCH (21:27)
[2018-10-26] MEDS: FLUoxetine 20 MG CAP PO SCH (21:27)
[2018-10-26] MEDS: LEVEMIR (INSULIN DETEMIR) 1 UNITS/0.01ML SC SCH (21:29)
[2018-10-27] MEDS: LABETALOL 100 MG TAB PO SCH ×3 (05:33→22:40)
[2018-10-27] MEDS: LEVOTHYROXINE 75MCG TABLET (0.075MG) PO SCH (05:33)
[2018-10-27 06:00] VITALS: BP 154/80
[2018-10-27 06:40] LABS: HEMATOCRIT 29.5 % (36.0-47.0); HEMOGLOBIN 9.4 g/dl (12.0-15.5); MEAN CORPUSCULAR HEMOGLOBIN 28.3 pg (27.0-33.0); MEAN CORPUSCULAR HGB CONC 31.9 g/dl (32.0-36.5); MEAN CORPUSCULAR VOLUME 88.9 fl (80.0-96.0); PLATELET COUNT, AUTOMATED 463 10^3/uL (150-450); RED BLOOD COUNT 3.32 10^6/uL (4.00-5.40)
[2018-10-27] MEDS: IPRATROPIUM 0.02% SOLN 0.5MG/2.5 ML NEB INH SCH ×2 (07:06→19:55)
[2018-10-27] MEDS: HumaLOG INSULIN (NovoLOG) PER UNIT SC SCH ×4 (10:18→21:00)
[2018-10-27] MEDS: LACTOBACILLUS ACIDOPHILUS CAP (BACID) PO SCH ×3 (10:19→17:45)
[2018-10-27] MEDS: guaiFENesin 200 MG TAB PO SCH ×3 (10:19→22:40)
[2018-10-27] MEDS: ASPIRIN 81 MG CHEW TABLET PO SCH (10:19)
[2018-10-27] MEDS: HEPARIN SOD (PORCINE) 5000 UNITS/ML VIAL SQ SCH ×2 (10:19→22:41)
[2018-10-27] MEDS: FERROUS GLUCONATE 324 MG TAB PO SCH ×2 (10:19→22:41)
[2018-10-27] MEDS: FOLIC ACID 1 MG TAB PO SCH (10:19)
[2018-10-27] MEDS: CEFDINIR 300 MG CAP (OMNICEF) PO SCH (10:19)
[2018-10-27] MEDS: CALCIUM/VITAMIN D 500 MG TAB PO SCH (10:19)
[2018-10-27] MEDS: ASCORBIC ACID 500 MG TAB PO SCH (10:20)
[2018-10-27] MEDS: ANALGESIC BALM CRM 120 GM TOP SCH ×3 (10:20→22:42)
[2018-10-27] MEDS: PANTOPRAZOLE 40MG TAB (PROTONIX) PO SCH ×2 (10:20→22:39)
[2018-10-27] MEDS: DOCUSATE SODIUM 100 MG CAP PO SCH ×2 (10:20→22:40)
[2018-10-27] MEDS ORDERED: FUROSEMIDE 20 MG TAB PO ONE (11:00)
--- NOTE | 2018-10-27 13:08 | IPN ---
DATE: 10/27/2018 Yaritza is seen in PMR unit. Chest x-ray yesterday showed a large right pleural effusion. She had a previous right infiltrate, which is decreased. She has a cough and a fever. She feels better than yesterday, but does note that she has persistent cough and she has a leukocytosis. PHYSICAL EXAMINATION: Afebrile. Vital signs stable. Lungs: Decreased breath sounds on the right. Heart: Regular rate and rhythm. Abdomen: Soft, nontender. Trace peripheral edema. LABORATORY: White count is 12, hemoglobin 94, platelets 446. Sodium 135, potassium 3.8, BUN 16, creatinine is 0.8. Blood sugars have been controlled, generally less than 200. IMPRESSION: 1. Right pleural effusion. I am concerned that this might be parapneumonic. Will get a CT scan of the chest. I have discussed the case formally with Dr. Peralta. He is not formally consulted yet. Will see how the CT turns out. 2. Congestive heart failure. She is a positive I/O, about 3 liters over the last several days. She is on by mouth Lasix. Will increase her dose of this. 3. Recent E. Coli urinary tract infection (UTI). She has taken enough cefdinir, so this will be discontinued. 4. Hypertension. Her blood pressure is well controlled. 5. Diabetes. Blood sugar is well controlled. 6. Seizures. No recurrence on anticonvulsant therapy. Keppra level was ordered when she had altered mental status. Results are pending.
[2018-10-27 14:00] VITALS: BP 119/65
[2018-10-27 20:00] VITALS: BP 138/69
[2018-10-27] MEDS: levETIRAcetam 250MG TABLET (KEPPRA) PO SCH (22:40)
[2018-10-27] MEDS: LEVEMIR (INSULIN DETEMIR) 1 UNITS/0.01ML SC SCH (22:41)
[2018-10-27] MEDS: ROSUVASTATIN 10 MG TAB (CRESTOR) PO SCH (22:41)
[2018-10-27] MEDS: SENNA 8.6 MG TAB (SENOKOT) PO SCH (22:41)
[2018-10-27] MEDS: FLUoxetine 20 MG CAP PO SCH (22:45)
[2018-10-28] MEDS: LABETALOL 100 MG TAB PO SCH ×3 (05:41→21:37)
[2018-10-28] MEDS: LEVOTHYROXINE 75MCG TABLET (0.075MG) PO SCH (05:41)
[2018-10-28 06:00] VITALS: BP 168/81
[2018-10-28 06:21] LABS: HEMOGLOBIN 9.8 g/dl (12.0-15.5); MEAN CORPUSCULAR HEMOGLOBIN 28.2 pg (27.0-33.0); MEAN CORPUSCULAR HGB CONC 31.6 g/dl (32.0-36.5); MEAN CORPUSCULAR VOLUME 89.1 fl (80.0-96.0); PLATELET COUNT, AUTOMATED 475 10^3/uL (150-450); RED BLOOD COUNT 3.48 10^6/uL (4.00-5.40); WHITE BLOOD COUNT 11.9 10^3/uL (4.0-10.0)
[2018-10-28 06:35] LABS: BLOOD UREA NITROGEN 16 MG/DL (7-18); CARBON DIOXIDE LEVEL 30 MEQ/L (21-32); CHLORIDE LEVEL 100 MEQ/L (98-107); CREATININE FOR GFR 0.84 MG/DL (0.55-1.30); GLOMERULAR FILTRATION RATE > 60.0 (>39); GLUCOSE, FASTING 98 MG/DL (70-100); SODIUM LEVEL 137 MEQ/L (136-145)
[2018-10-28] MEDS: HumaLOG INSULIN (NovoLOG) PER UNIT SC SCH ×4 (07:30→21:00)
[2018-10-28] MEDS: IPRATROPIUM 0.02% SOLN 0.5MG/2.5 ML NEB INH SCH ×2 (07:36→20:55)
[2018-10-28] MEDS: ANALGESIC BALM CRM 120 GM TOP SCH ×3 (08:29→21:36)
[2018-10-28] MEDS: ASPIRIN 81 MG CHEW TABLET PO SCH (08:29)
[2018-10-28] MEDS: DOCUSATE SODIUM 100 MG CAP PO SCH ×2 (08:29→21:36)
[2018-10-28] MEDS: levETIRAcetam 250MG TABLET (KEPPRA) PO SCH ×2 (08:29→21:37)
[2018-10-28] MEDS: CALCIUM/VITAMIN D 500 MG TAB PO SCH (08:29)
[2018-10-28] MEDS: FOLIC ACID 1 MG TAB PO SCH (08:29)
[2018-10-28] MEDS: ASCORBIC ACID 500 MG TAB PO SCH (08:29)
[2018-10-28] MEDS: guaiFENesin 200 MG TAB PO SCH ×3 (08:29→21:36)
[2018-10-28] MEDS: FERROUS GLUCONATE 324 MG TAB PO SCH ×2 (08:29→21:37)
[2018-10-28] MEDS: HEPARIN SOD (PORCINE) 5000 UNITS/ML VIAL SQ SCH ×2 (08:29→21:36)
[2018-10-28] MEDS: LACTOBACILLUS ACIDOPHILUS CAP (BACID) PO SCH ×3 (08:30→17:12)
[2018-10-28] MEDS: FUROSEMIDE 40 MG TAB PO SCH (08:30)
[2018-10-28] MEDS: PANTOPRAZOLE 40MG TAB (PROTONIX) PO SCH ×2 (08:30→21:36)
--- NOTE | 2018-10-28 09:53 | IPN ---
DATE: 10/26/2018 ARU staff called with change of status of Yaritza who had been sleepy and less responsive. She was "freezing". She did not make sense with her speech. No active seizure activity was seen. She has a cough. She denies shortness of breath. There has been no fever. PHYSICAL EXAMINATION: 179/82. Previous blood pressures in the 130s over 70s. Pulse 90. Respiratory rate 18. 94% oxygen saturation, down from 99% yesterday. General Appearance: She is sleepy. She arouses and answers questions, but then falls back asleep. Neck supple. Mucous membranes look a little dry. Lungs clear. Heart regular rate and rhythm. Abdomen soft, nontender. Neurologic exam is unchanged. IMPRESSION: Altered mental status. PLAN: I suspect this is from the Keppra. I am going to hold this until her level comes back, which was ordered a few days ago. She also looks a little dry. I am ordering some lab work and holding her furosemide. Will check a chest x-ray in the face of the cough and do urinalysis (UA) and a culture. Plan of care discussed with her daughter and nursing staff.
[2018-10-28 14:00] VITALS: BP 110/66
[2018-10-28] MEDS: ACETAMINOPHEN TAB 650MG DOSE (2X325MG) PO PRN (14:22)
--- NOTE | 2018-10-28 15:51 | REP ---
CT of the chest without IV contrast: Comparison is the plain film portable study performed earlier today. There is a large right pleural effusion. There is compression atelectasis of the right lower lobe. The right upper lobe is clear. There is a large hiatal hernia measuring 13.3 cm transversely and containing the gastric body and fundus. There is a small left pleural effusion. The left lung is clear except for compression atelectasis from the hiatal hernia. The unenhanced thoracic aorta is unremarkable except for circumferential opaque material surrounding the ascending aorta, possibly ascending aorta wrapping. The the ascending aorta measures a 3.7 cm in diameter is mildly dilated. Cardiac size is enlarged. There is a loculated fluid collection posterior to the sternum interposed between the sternum. The heart measuring 3.5 cm transversely by 4.5 cm craniocaudad by a 1.8 cm in depth. There are sternotomy wires. This may be postsurgical retrosternal cyst. The There is a pericardial effusion measuring up to 7.4 mm in depth posterolaterally on the left. The visualized upper abdominal contents are unremarkable. Impression: Large right pleural effusion with compression atelectasis of the right lower lobe. Large hiatal hernia with compression atelectasis of the left lower lobe. Cardiomegaly with pericardial effusion as described. Focal loculated substernal fluid collection as described, possibly secondary to sternotomy wires. No left pleural effusion. Electronically Signed by Joaquin Dallas MD 10/27/2018 12:00 P
[2018-10-28 20:00] VITALS: BP 122/64
[2018-10-28] MEDS: traZODone 25MG PER 1/2 TABLET PO SCH (21:37)
[2018-10-28] MEDS: FLUoxetine 20 MG CAP PO SCH (21:37)
[2018-10-28] MEDS: SENNA 8.6 MG TAB (SENOKOT) PO SCH (21:37)
[2018-10-28] MEDS: ROSUVASTATIN 10 MG TAB (CRESTOR) PO SCH (21:37)
[2018-10-28] MEDS: LEVEMIR (INSULIN DETEMIR) 1 UNITS/0.01ML SC SCH (21:38)
[2018-10-29 05:54] VITALS: BP 137/74
[2018-10-29] MEDS: LABETALOL 100 MG TAB PO SCH ×3 (05:56→21:03)
[2018-10-29] MEDS: LEVOTHYROXINE 75MCG TABLET (0.075MG) PO SCH (05:56)
[2018-10-29] MEDS: IPRATROPIUM 0.02% SOLN 0.5MG/2.5 ML NEB INH SCH ×2 (07:17→21:32)
[2018-10-29] MEDS: FOLIC ACID 1 MG TAB PO SCH (09:11)
[2018-10-29] MEDS: levETIRAcetam 250MG TABLET (KEPPRA) PO SCH (09:11)
[2018-10-29] MEDS: FERROUS GLUCONATE 324 MG TAB PO SCH ×2 (09:11→21:03)
[2018-10-29] MEDS: guaiFENesin 200 MG TAB PO SCH ×3 (09:11→21:01)
[2018-10-29] MEDS: PANTOPRAZOLE 40MG TAB (PROTONIX) PO SCH ×2 (09:11→21:01)
[2018-10-29] MEDS: ASCORBIC ACID 500 MG TAB PO SCH (09:11)
[2018-10-29] MEDS: CALCIUM/VITAMIN D 500 MG TAB PO SCH (09:11)
[2018-10-29] MEDS: FUROSEMIDE 40 MG TAB PO SCH (09:11)
[2018-10-29] MEDS: LACTOBACILLUS ACIDOPHILUS CAP (BACID) PO SCH ×3 (09:11→17:42)
[2018-10-29] MEDS: ASPIRIN 81 MG CHEW TABLET PO SCH (09:11)
[2018-10-29] MEDS: DOCUSATE SODIUM 100 MG CAP PO SCH ×2 (09:11→21:02)
[2018-10-29] MEDS: ANALGESIC BALM CRM 120 GM TOP SCH ×3 (09:12→21:04)
[2018-10-29] MEDS: HumaLOG INSULIN (NovoLOG) PER UNIT SC SCH ×4 (09:12→20:54)
[2018-10-29] MEDS: HEPARIN SOD (PORCINE) 5000 UNITS/ML VIAL SQ SCH ×2 (09:12→21:03)
[2018-10-29 14:00] VITALS: BP 126/67
[2018-10-29 20:00] VITALS: BP 160/84
--- NOTE | 2018-10-29 20:32 | IPN ---
DATE OF SERVICE: 10/29/2018 She is a 73-year-old female, status post right frontal lobe infarct. She had been slightly more sleepy and less responsive. Her Keppra dose was decreased. Keppra level came back today. Her dose has been decreased and a repeat level has been ordered. According to the progress note on 10/27/2018, she was feeling better, her cough was improved. She had a CT of her head, which showed no hemorrhage, acute infarct or mass, and, as noted, she is more awake today, less sleepy A chest CT was done on 10/27/2018; it shows a large right pleural effusion, compression atelectasis of the right lower lobe. Right upper lobe clear. Large hiatal hernia measuring 13.3 transversely and containing the gastric body and fundus. Small left pleural effusion. Ascending aorta 3.7 cm was mildly dilated. Loculated fluid collection posterior to the sternum interposed between the sternum. Pericardial effusion measuring up to mm. There is loculated substernal loculated substernal fluid collection, possibly secondary to sternotomy wires. It is located posterior to the sternum, interposed between the sternum. Blood count today was 11.9. Hemoglobin and hematocrit 9.8 and 31, platelets are 375. She has been afebrile. Blood pressure has been stable. Heart rate 80-90. Discussed with Dr. Magana. She is forwarding the CT to the cardiovascular surgeon in the morning. The patient has no complaints of shortness of breath, has no conversational dyspnea, did participate with therapy. Denies any rectal bleeding or black tarry stools. Will recheck chest x-ray in morning. Continue Lasix 40 mg by mouth daily. OBJECTIVE: Blood pressure 126/67, pulse 83, respirations 19, temperature 98.5, oxygen saturation was 93% The patient is alert and oriented times three. Pupils equal and reactive to light. Extraocular muscles intact. Pharynx: Tongue and gums pink and moist. Tongue is midline. Neck is supple without lymphadenopathy. No thyromegaly. No goiter. Chest has decreased breath sounds. No wheeze or retractions. Heart is regular. Abdomen is benign. Bowel sounds are positive. Genital/Rectal: Not done. Extremities: Show no cyanosis, clubbing, or edema. IMPRESSION/PLAN: Large pleural effusion. Continue intravenous (IV) Lasix. Discuss with pulmonology in the morning to see if it would need to be drained. Continue physical therapy (PT), occupational therapy (OT) and statin, aspirin. Anemia. Continues on iron. Check iron level. WBC is 11.9, hemoglobin 9.8, hematocrit 31, platelets 475, will check in the morning. Electrolytes were normal. BUN was 7, creatinine was 0.84, calcium was 9. Pleural effusion. Continue Lasix. Recheck chest x-ray in the morning. Reviewed with pulmonology. Pericardial effusion, loculated fluid. Per Dr. Magana, she will send the films and discuss with her cardiac surgeon in the morning. Followup on Keppra level in the morning. Continues on lower dose. Hypothyroidism. Continue Synthroid. Diabetes. Continue insulin coverage. Continue diet, insulin and fingersticks blood sugars. Patient currently resting comfortably with no complaints of pain. Continue deep vein thrombosis (DVT) prophylaxis with heparin.
[2018-10-29] MEDS: traZODone 25MG PER 1/2 TABLET PO SCH (21:00)
[2018-10-29] MEDS ORDERED: levETIRAcetam 250MG TABLET (KEPPRA) PO SCH (21:00)
[2018-10-29] MEDS: ROSUVASTATIN 10 MG TAB (CRESTOR) PO SCH (21:01)
[2018-10-29] MEDS: FLUoxetine 20 MG CAP PO SCH (21:02)
[2018-10-29] MEDS: ACETAMINOPHEN TAB 650MG DOSE (2X325MG) PO PRN (21:02)
[2018-10-29] MEDS: SENNA 8.6 MG TAB (SENOKOT) PO SCH (21:03)
[2018-10-29] MEDS: LEVEMIR (INSULIN DETEMIR) 1 UNITS/0.01ML SC SCH (21:03)
[2018-10-30] MEDS: LEVOTHYROXINE 75MCG TABLET (0.075MG) PO SCH (05:31)
[2018-10-30] MEDS: LABETALOL 100 MG TAB PO SCH ×3 (05:32→21:07)
[2018-10-30 06:00] VITALS: BP 142/68
[2018-10-30 07:09] LABS: HEMATOCRIT 30.2 % (36.0-47.0); HEMOGLOBIN 9.6 g/dl (12.0-15.5); MEAN CORPUSCULAR HEMOGLOBIN 28.3 pg (27.0-33.0); MEAN CORPUSCULAR HGB CONC 31.8 g/dl (32.0-36.5); MEAN CORPUSCULAR VOLUME 89.1 fl (80.0-96.0); PLATELET COUNT, AUTOMATED 425 10^3/uL (150-450); RED BLOOD COUNT 3.39 10^6/uL (4.00-5.40); WHITE BLOOD COUNT 9.8 10^3/uL (4.0-10.0)
[2018-10-30 07:36] LABS: PERCENT SATURATION 13.7 % (13.2-45.0)
[2018-10-30] MEDS: IPRATROPIUM 0.02% SOLN 0.5MG/2.5 ML NEB INH SCH ×2 (07:46→21:26)
[2018-10-30] MEDS: HEPARIN SOD (PORCINE) 5000 UNITS/ML VIAL SQ SCH ×2 (09:05→21:05)
[2018-10-30] MEDS: HumaLOG INSULIN (NovoLOG) PER UNIT SC SCH ×4 (09:06→21:00)
[2018-10-30] MEDS: ASCORBIC ACID 500 MG TAB PO SCH (09:07)
[2018-10-30] MEDS: guaiFENesin 200 MG TAB PO SCH ×3 (09:07→21:08)
[2018-10-30] MEDS: FUROSEMIDE 40 MG TAB PO SCH (09:07)
[2018-10-30] MEDS: FERROUS GLUCONATE 324 MG TAB PO SCH ×2 (09:07→21:06)
[2018-10-30] MEDS: CALCIUM/VITAMIN D 500 MG TAB PO SCH (09:07)
[2018-10-30] MEDS: PANTOPRAZOLE 40MG TAB (PROTONIX) PO SCH ×2 (09:07→21:06)
[2018-10-30] MEDS: ANALGESIC BALM CRM 120 GM TOP SCH ×3 (09:08→21:07)
[2018-10-30] MEDS: DOCUSATE SODIUM 100 MG CAP PO SCH ×2 (09:08→21:06)
[2018-10-30] MEDS: LACTOBACILLUS ACIDOPHILUS CAP (BACID) PO SCH ×3 (09:08→17:50)
[2018-10-30] MEDS: levETIRAcetam 250MG TABLET (KEPPRA) PO SCH ×2 (09:08→21:07)
[2018-10-30] MEDS: FOLIC ACID 1 MG TAB PO SCH (09:08)
[2018-10-30] MEDS: ASPIRIN 81 MG CHEW TABLET PO SCH (09:08)
--- NOTE | 2018-10-30 12:10 | REP ---
PA and lateral chest: Comparisons are the AP and lateral chest of 10/26/[address] of 10/27/2018. There is a large right pleural effusion. This is unchanged. There is a small left pleural effusion. This is unchanged. There is a large hiatal hernia. This is unchanged. There is cardiomegaly. This is unchanged. On the comparison CT there was a pericardial effusion. Lung gale otherwise clear. The jey, mediastinum, skeletal structures are unremarkable. Impression: Bilateral pleural effusions as described, unchanged. Large hiatal hernia, unchanged. Electronically Signed by Joaquin Dallas MD 10/30/2018 09:52 A
[2018-10-30 14:00] VITALS: BP 134/68
--- NOTE | 2018-10-30 16:36 | IPNPDOC ---
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 REVIEW OF SYSTEMS: The following is a completed review of systems and has been reviewed. Review of systems otherwise unremarkable. PAIN: Patient self reports no pain EYES: No recent vision changes EARS, NOSE, & THROAT: +dysphagia CARDIOVASCULAR: + chest pain (sternal wall pain, TTP)-resolved PULMONARY: Denies shortness of breath GASTROINTESTINAL: Denies constipation/diarrhea GENITOURINARY: +incontinence MUSCULOSKELETAL: LUE weakness NEUROLOGICAL:+ seizures, +LUE paresis and apraxia SKIN: abdominal incisions and sternal scar PSYCHIATRIC: agitated, but pleasant All other review of systems found to be negative. PHYSICAL EXAMINATION: VITAL SIGNS: Please see below. GENERAL: Pleasant and cooperative. No acute distress. mildly agitated HEENT: PERRL. Extraocular movements intact. Clear conjunctiva, left facial droop CARDIOVASCULAR: Regular rate and rhythm. No murmurs, rubs, or gallops, +TTP sternum LUNGS: Clear to auscultation bilaterally. No wheezes. No rhonchi, decreased breath sounds at bases (poor inspiratory effort) ABDOMEN: Soft, nontender, nondistended. Positive bowel sounds. Normal active bowel sounds NEUROLOGICAL: Alert and oriented to self and location, had difficulty following commands consistently, +apraxia Cranial nerves II through XII grossly intact except for left sided facial droop, extinction to touch on the left side, otherwise sensation intact to light touch EXTREMITIES: 5\\5 strength right upper extremities. 3/5 left elbow flexors/ extensors, 2/5 ski edge painter and wrist extension 5\\5 strength right lower extremity. 4/5 strength in left lower extremity. SKIN: no sacral ulcers, sternal incision healing well, abdominal incisions with mild erythema ASSESSMENT:73 year-old F with past medical history of HTN, DM, CKD2 who presents status post abdominal aortic dissection repair complicated by right frontal infarct. 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 Neuro: s/p right frontal lobe infarct, c/u ASA and statin, maintain good BP control -c/u Prozac for motor recovery, switch to qHS -new onset GCT seizures, c/u Keppra, will need neuro f/u- Keppra levels ordered and will adjust prn, may be contributing to patients low energy 3. 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 Resp: monitor for infection, encourage incentive spirometry, guaifenesin ordered and ipratropium 5. Endo: pmh hypothyroidism, c/u Synthroid DM- c/u insulin coverage, and c/u to hold metformin 6. : Ucx positive for E. Coli c/u 7 day course of Cefdinir leukocytosis resolved 6. DVT ppx: heparin and TEDs 7. GI ppx: protnix BID 7. Pain: Tylenol prn 9. 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 Dispo: 11/12/18 to home, progressing towards goals Allergies Coded Allergies: morphine (Verified Adverse Reaction, Mild, 10/18/18) "facial flushing" Vital Signs Vital Signs Date Time Temp Pulse Resp B/P (MAP) Pulse Ox O2 Delivery O2 Flow Rate FiO2 10/30/18 14:33 94 134/68 10/30/18 14:00 98.6 18 94 Laboratory Data CBC/BMP Laboratory Tests 10/30/18 06:44 Red Blood Count 3.39 L, Mean Corpuscular Volume 89.1, Mean Corpuscular Hemoglobin 28.3, Mean Corpuscular Hemoglobin Concent 31.8 L, Red Cell Distribution Width 16.9 H Labs 24H Laboratory Tests 2 10/29/18 16:34: Bedside Glucose (Misc Panel) 166H 10/29/18 17:23: 10/29/18 20:11: Bedside Glucose (Misc Panel) 170H 10/30/18 06:44: Nucleated Red Blood Cells % (auto) 0.0, Iron Level 29L, Total Iron Binding Capacity 211L, Transferrin % Saturation 13.7 10/30/18 06:45: Bedside Glucose (Misc Panel) 119H 10/30/18 12:03: Bedside Glucose (Misc Panel) 188H Microbiology Microbiology 10/26/18 Urine Culture - Final, Complete Current Medications Current Medications Current Medications Medications (Trade) Dose Ordered Sig/Chirag Route PRN Reason Start Time Stop Time Status Last Admin Dose Admin Acetaminophen (Tylenol Tab) 650 mg Q4HP PRN PO MILD PAIN (PS 1-4) 10/18/18 16:30 10/29/18 21:02 Ascorbic Acid (Vitamin C) 500 mg DAILY PO 10/19/18 09:00 10/30/18 09:07 Aspirin (Aspirin Chewable) 81 mg DAILY PO 10/19/18 09:00 10/30/18 09:08 Bisacodyl (Dulcolax Suppository) 10 mg DAILYPRN PRN ME CONSTIPATION 10/18/18 16:30 Calcium/Vitamin D (Oscal D) 500 mg DAILY PO 10/19/18 09:00 10/30/18 09:07 Cefdinir (Omnicef) 300 mg BID PO 10/19/18 21:00 10/26/18 09:01 DC 10/26/18 08:59 Cefdinir (Omnicef) 300 mg BID PO 10/26/18 14:00 10/27/18 10:59 DC 10/27/18 10:19 Dextrose (Dextrose 50%) 25 ml ASDIRECTED PRN IV SEE LABEL COMMENTS 10/18/18 16:30 Docusate Sodium (Colace) 100 mg BID PO 10/18/18 21:00 10/30/18 09:08 Ferrous Gluconate (Fergon) 324 mg BID PO 10/18/18 21:00 10/30/18 09:07 Fluoxetine HCl (PROzac) 20 mg DAILY PO 10/19/18 09:00 10/24/18 11:52 DC 10/24/18 08:30 Fluoxetine HCl (PROzac) 20 mg QHS PO 10/25/18 21:00 10/29/18 21:02 Folic Acid (Folic Acid) 1 mg DAILY PO 10/19/18 09:00 10/30/18 09:08 Furosemide (Lasix) 20 mg DAILY PO 10/19/18 09:00 10/27/18 10:59 DC 10/26/18 08:57 Furosemide (Lasix) 40 mg DAILY PO 10/28/18 09:00 10/30/18 09:07 Glucagon (Glucagon) 1 mg ASDIRECTED PRN SC SEE LABEL COMMENTS 10/18/18 16:30 Glucose (Glucose) 16 GM ASDIRECTED PRN PO SEE LABEL COMMENTS 10/18/18 16:30 Guaifenesin (Robitussin Tab) 400 mg TID PO 10/22/18 16:15 10/30/18 09:07 Heparin Sodium (Porcine) (Heparin) 5,000 units Q12H SQ 10/18/18 21:00 10/30/18 09:05 Home Med (Med Rec Complete!) ASDIRECTED XX 10/18/18 17:30 10/18/18 17:30 DC Insulin Detemir (Levemir Insulin) 10 units QHS SD 10/18/18 21:00 10/29/18 21:03 Insulin Human Lispro (HumaLOG INSULIN) SEE PROTOCOL TABLE AC SD 10/18/18 17:30 10/30/18 12:51 Insulin Human Lispro (HumaLOG INSULIN) [facility] 10/[facility]/18 21:00 10/21/18 20:42 Ipratropium [place] (Atrovent 0.02%) 0.5 mg RBID INH 10/22/18 20:00 10/29/18 21:32 Labetalol HCl (Normodyne, Trandate) 50 mg BID PO 10/18/18 21:00 10/19/18 07:40 DC 10/18/18 21:07 Labetalol HCl (Normodyne, Trandate) 50 mg Q8H PO 10/21/18 14:00 10/26/18 13:53 DC 10/26/18 05:45 Labetalol HCl (Normodyne, Trandate) 50 mg TID PO 10/18/18 21:00 10/18/18 21:00 DC Labetalol HCl (Normodyne, Trandate) 50 mg TID PO 10/19/18 09:00 10/21/18 14:36 DC 10/21/18 09:23 Labetalol HCl (Normodyne, Trandate) 100 mg Q8H PO 10/26/18 14:00 10/30/18 14:33 Lactobacillus Acidophilus (Bacid) 1 ea WM PO 10/19/18 18:00 10/30/18 12:50 Levetiracetam (Keppra) 250 mg BID PO 10/30/18 09:00 10/30/18 09:08 Levetiracetam (Keppra) 750 mg BID PO 10/29/18 21:00 10/29/18 21:00 DC Levetiracetam (Keppra) 1,000 mg BID PO 10/18/18 21:00 10/29/18 16:23 DC 10/29/18 09:11 Levothyroxine Sodium (Synthroid) 75 mcg DAILY@06 PO 10/19/18 06:00 10/30/18 05:31 Magnesium Hydroxide (Milk Of Magnesia) 30 ml DAILYPRN PRN PO CONSTIPATION 10/18/18 16:30 Menthol/Methyl Salicylate (Bengay Cream) apply to posterior ... TID TOP 10/25/18 09:00 10/30/18 09:08 Miscellaneous (Unresolved Clarification Entry) SEE LABEL COMMENTS DAILY XX 10/25/18 09:00 10/26/18 09:10 DC Pantoprazole Sodium (Protonix) 40 mg BID PO 10/18/18 21:00 10/30/18 09:07 Pantoprazole Sodium (Protonix) 40 mg QHS PO 10/18/18 21:00 10/18/18 21:00 DC Rosuvastatin Calcium (Crestor) 20 mg QHS PO 10/18/18 21:00 10/29/18 21:01 Senna (Senokot) 1 tab QHS PO 10/18/18 21:00 10/29/18 21:03 Trazodone HCl (Desyrel) 25 mg Q6HP PRN PO AGITATION 10/18/18 16:30 10/24/18 11:53 DC 10/19/18 03:07 Trazodone HCl (Desyrel) 25 mg QHS PO 10/21/18 21:00 10/24/18 11:53 DC 10/23/18 20:30 Trazodone HCl (Desyrel) 25 mg QHS PO 10/28/18 21:00 10/29/18 21:00 Trazodone HCl (Desyrel) 50 mg QHS PO 10/18/18 21:00 10/21/18 14:38 DC 10/20/18 20:19 CHRIS CORDON MD Oct 30, 2018 16:36
--- NOTE | 2018-10-30 16:38 | IPNPDOC ---
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 REVIEW OF SYSTEMS: The following is a completed review of systems and has been reviewed. Review of systems otherwise unremarkable. PAIN: Patient self reports no pain EYES: No recent vision changes EARS, NOSE, & THROAT: +dysphagia CARDIOVASCULAR: + chest pain (sternal wall pain, TTP)-resolved PULMONARY: Denies shortness of breath GASTROINTESTINAL: Denies constipation/diarrhea GENITOURINARY: +incontinence MUSCULOSKELETAL: LUE weakness NEUROLOGICAL:+ seizures, +LUE paresis and apraxia SKIN: abdominal incisions and sternal scar PSYCHIATRIC: agitated, but pleasant All other review of systems found to be negative. PHYSICAL EXAMINATION: VITAL SIGNS: Please see below. GENERAL: Pleasant and cooperative. No acute distress. mildly agitated HEENT: PERRL. Extraocular movements intact. Clear conjunctiva, left facial droop CARDIOVASCULAR: Regular rate and rhythm. No murmurs, rubs, or gallops, +TTP sternum LUNGS: Clear to auscultation bilaterally. No wheezes. No rhonchi, decreased breath sounds at bases (poor inspiratory effort) ABDOMEN: Soft, nontender, nondistended. Positive bowel sounds. Normal active bowel sounds NEUROLOGICAL: Alert and oriented to self and location, had difficulty following commands consistently, +apraxia Cranial nerves II through XII grossly intact except for left sided facial droop, extinction to touch on the left side, otherwise sensation intact to light touch EXTREMITIES: 5\\5 strength right upper extremities. 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 4/5 strength in left lower extremity. SKIN: no sacral ulcers, sternal incision healing well, abdominal incisions with mild erythema ASSESSMENT:73 year-old F with past medical history of HTN, DM, CKD2 who presents status post abdominal aortic dissection repair complicated by right frontal infarct. 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 Neuro: s/p right frontal lobe infarct, c/u ASA and statin, maintain good BP control -c/u Prozac for motor recovery, switch to qHS -new onset GCT seizures, Keppra levels 70, a couple of doses held over the weekend, will c/u at lower dose 250mg and recheck levels, may be contributing to patients low energy, however she is able to participate in therapy 3. Cardio: s/p type A aortic dissection s/p repair on 10/04/18 with poorly controlled HTN with recent hypotensive episode at [facility] on 10/14, most BP meds h eld, was taking labetolol 100mg po TID c/u this regimen - f/u with cardiac surgeon -mild hyponatremia- c/u restrict to 1500cc and monitor- resolving 4. Resp: monitor for infection, encourage incentive spirometry, guaifenesin ordered and ipratropium --CT scan over the weekend shows persistent right pleural effusion, patient denies having worsening shortness of breath, c/u increased dose of lasix 40mg daily, unless worsening symptoms will avoid any surgical interventions at this time -CXR no infiltrate 5. Endo: pmh hypothyroidism, c/u Synthroid DM- c/u insulin coverage, and c/u to hold metformin 6. : Ucx positive for E. Coli c/u 10 day course of Cefdinir 6. DVT ppx: heparin and TEDs 7. GI ppx: protonix BID 7. Pain: Tylenol prn 9. 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 ID: mild intermittent leukocytosis despite antibiotics, no fever, does not appear infected, will consider alerting cardiac surgeon to loculated substernal fluid seen on recent CT if leukocytosis does not resolve by tomorrow for possible drainage 8. Dispo: 11/12/18 to home, progressing towards goals Allergies Coded Allergies: morphine (Verified Adverse Reaction, Mild, 10/18/18) "facial flushing" Vital Signs Vital Signs Date Time Temp Pulse Resp B/P (MAP) Pulse Ox O2 Delivery O2 Flow Rate FiO2 10/30/18 14:33 94 134/68 10/30/18 14:00 98.6 18 94 Laboratory Data CBC/BMP Laboratory Tests 10/30/18 06:44 Red Blood Count 3.39 L, Mean Corpuscular Volume 89.1, Mean Corpuscular Hemoglobin 28.3, Mean Corpuscular Hemoglobin Concent 31.8 L, Red Cell Distribution Width 16.9 H Labs 24H Laboratory Tests 2 10/29/18 17:23: 10/29/18 20:11: Bedside Glucose (Misc Panel) 170H 10/30/18 06:44: Nucleated Red Blood Cells % (auto) 0.0, Iron Level 29L, Total Iron Binding Capacity 211L, Transferrin % Saturation 13.7 10/30/18 06:45: Bedside Glucose (Misc Panel) 119H 10/30/18 12:03: Bedside Glucose (Misc Panel) 188H Microbiology Microbiology 10/26/18 Urine Culture - Final, Complete Current Medications Current Medications Current Medications Medications (Trade) Dose Ordered Sig/Chirag Route PRN Reason Start Time Stop Time Status Last Admin Dose Admin Acetaminophen (Tylenol Tab) 650 mg Q4HP PRN PO MILD PAIN (PS 1-4) 10/18/18 16:30 10/29/18 21:02 Ascorbic Acid (Vitamin C) 500 mg DAILY PO 10/19/18 09:00 10/30/18 09:07 Aspirin (Aspirin Chewable) 81 mg DAILY PO 10/19/18 09:00 10/30/18 09:08 Bisacodyl (Dulcolax Suppository) 10 mg DAILYPRN PRN SD CONSTIPATION 10/18/18 16:30 Calcium/Vitamin D (Oscal D) 500 mg DAILY PO 10/19/18 09:00 10/30/18 09:07 Cefdinir (Omnicef) 300 mg BID PO 10/19/18 21:00 10/26/18 09:01 DC 10/26/18 08:59 Cefdinir (Omnicef) 300 mg BID PO 10/26/18 14:00 10/27/18 10:59 DC 10/27/18 10:19 Dextrose (Dextrose 50%) 25 ml ASDIRECTED PRN IV SEE LABEL COMMENTS 10/18/18 16:30 Docusate Sodium (Colace) 100 mg BID PO 10/18/18 21:00 10/30/18 09:08 Ferrous Gluconate (Fergon) 324 mg BID PO 10/18/18 21:00 10/30/18 09:07 Fluoxetine HCl (PROzac) 20 mg DAILY PO 10/19/18 09:00 10/24/18 11:52 DC 10/24/18 08:30 Fluoxetine HCl (PROzac) 20 mg QHS PO 10/25/18 21:00 10/29/18 21:02 Folic Acid (Folic Acid) 1 mg DAILY PO 10/19/18 09:00 10/30/18 09:08 Furosemide (Lasix) 20 mg DAILY PO 10/19/18 09:00 10/27/18 10:59 DC 10/26/18 08:57 Furosemide (Lasix) 40 mg DAILY PO 10/28/18 09:00 10/30/18 09:07 Glucagon (Glucagon) 1 mg ASDIRECTED PRN SC SEE LABEL COMMENTS 10/18/18 16:30 Glucose (Glucose) 16 GM ASDIRECTED PRN PO SEE LABEL COMMENTS 10/18/18 16:30 Guaifenesin (Robitussin Tab) 400 mg TID PO 10/22/18 16:15 10/30/18 09:07 Heparin Sodium (Porcine) (Heparin) 5,000 units Q12H SQ 10/18/18 21:00 10/30/18 09:05 Home Med (Med Rec Complete!) ASDIRECTED XX 10/18/18 17:30 10/18/18 17:30 DC Insulin Detemir (Levemir Insulin) 10 units QHS SC 10/18/18 21:00 10/29/18 21:03 Insulin Human Lispro (HumaLOG INSULIN) SEE PROTOCOL TABLE AC SC 10/18/18 17:30 10/30/18 12:51 Insulin Human Lispro (HumaLOG INSULIN) SEE PROTOCOL TABLE QHS SC 10/18/18 21:00 10/21/18 20:42 Ipratropium [place] (Atrovent 0.02%) 0.5 mg RBID INH 10/22/18 20:00 10/29/18 21:32 Labetalol HCl (Normodyne, Trandate) 50 mg BID PO 10/18/18 21:00 10/19/18 07:40 DC 10/18/18 21:07 Labetalol HCl (Normodyne, Trandate) 50 mg Q8H PO 10/21/18 14:00 10/26/18 13:53 DC 10/26/18 05:45 Labetalol HCl (Normodyne, Trandate) 50 mg TID PO 10/18/18 21:00 10/18/18 21:00 DC Labetalol HCl (Normodyne, Trandate) 50 mg TID PO 10/19/18 09:00 10/21/18 14:36 DC 10/21/18 09:23 Labetalol HCl (Normodyne, Trandate) 100 mg Q8H PO 10/26/18 14:00 10/30/18 14:33 Lactobacillus Acidophilus (Bacid) 1 ea WM PO 10/19/18 18:00 10/30/18 12:50 Levetiracetam (Keppra) 250 mg BID PO 10/30/18 09:00 10/30/18 09:08 Levetiracetam (Keppra) 750 mg BID PO 10/29/18 21:00 10/29/18 21:00 DC Levetiracetam (Keppra) 1,000 mg BID PO 10/18/18 21:00 10/29/18 16:23 DC 10/29/18 09:11 Levothyroxine Sodium (Synthroid) 75 mcg DAILY@06 PO 10/19/18 06:00 10/30/18 05:31 Magnesium Hydroxide (Milk Of Magnesia) 30 ml DAILYPRN PRN PO CONSTIPATION 10/18/18 16:30 Menthol/Methyl Salicylate (Bengay Cream) apply to posterior ... TID TOP 10/25/18 09:00 10/30/18 09:08 Miscellaneous (Unresolved Clarification Entry) SEE LABEL COMMENTS DAILY XX 10/25/18 09:00 10/26/18 09:10 DC Pantoprazole Sodium (Protonix) 40 mg BID PO 10/18/18 21:00 10/30/18 09:07 Pantoprazole Sodium (Protonix) 40 mg QHS PO 10/18/18 21:00 10/18/18 21:00 DC Rosuvastatin Calcium (Crestor) 20 mg QHS PO 10/18/18 21:00 10/29/18 21:01 Senna (Senokot) 1 tab QHS PO 10/18/18 21:00 10/29/18 21:03 Trazodone HCl (Desyrel) 25 mg Q6HP PRN PO AGITATION 10/18/18 16:30 10/24/18 11:53 DC 10/19/18 03:07 Trazodone HCl (Desyrel) 25 mg QHS PO 10/21/18 21:00 10/24/18 11:53 DC 10/23/18 20:30 Trazodone HCl (Desyrel) 25 mg QHS PO 10/28/18 21:00 10/29/18 21:00 Trazodone HCl (Desyrel) 50 mg QHS PO 10/18/18 21:00 10/21/18 14:38 DC 10/20/18 20:19 CHRIS CORDON MD Oct 30, 2018 16:38
--- NOTE | 2018-10-30 16:48 | IPNPDOC ---
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 She reports she has always had difficulty with attention and has a "loose walk" at baseline. REVIEW OF SYSTEMS: The following is a completed review of systems and has been reviewed. Review of systems otherwise unremarkable. PAIN: Patient self reports no pain EYES: No recent vision changes EARS, NOSE, & THROAT: +dysphagia CARDIOVASCULAR: + chest pain (sternal wall pain, TTP)-resolved PULMONARY: Denies shortness of breath GASTROINTESTINAL: Denies constipation/diarrhea GENITOURINARY: +incontinence MUSCULOSKELETAL: LUE weakness NEUROLOGICAL:+ seizures, +LUE paresis and apraxia SKIN: abdominal incisions and sternal scar PSYCHIATRIC: agitated, but pleasant All other review of systems found to be negative. PHYSICAL EXAMINATION: VITAL SIGNS: Please see below. GENERAL: Pleasant and cooperative. No acute distress. mildly agitated HEENT: PERRL. Extraocular movements intact. Clear conjunctiva, left facial droop CARDIOVASCULAR: Regular rate and rhythm. No murmurs, rubs, or gallops, +TTP sternum LUNGS: Clear to auscultation bilaterally. No wheezes. No rhonchi, decreased breath sounds at bases (poor inspiratory effort) ABDOMEN: Soft, nontender, nondistended. Positive bowel sounds. Normal active bowel sounds NEUROLOGICAL: Alert and oriented to self and location, had difficulty following commands consistently, +apraxia Cranial nerves II through XII grossly intact except for left sided facial droop, extinction to touch on the left side, otherwise sensation intact to light touch EXTREMITIES: 5\\5 strength right upper extremities. 3/5 left elbow flexors/extensors, 2/5 bilingual operator and wrist extension 5\\5 strength right lower extremity. 4/5 strength in left lower extremity. SKIN: no sacral ulcers, sternal incision healing well, abdominal incisions with mild erythema ASSESSMENT:73 year-old F with past medical history of HTN, DM, CKD2 who presents status post abdominal aortic dissection repair complicated by right frontal infarct. 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 Neuro: s/p right frontal lobe infarct, c/u ASA and statin, maintain good BP control, CT scan over the weekend ordered to altered mental status, no acute changes -c/u Prozac for motor recovery qHS -new onset GCT seizures, Keppra levels 70, a couple of doses held over the weekend, will c/u at lower dose 250mg and recheck levels, may be contributing to patients low energy, however she is able to participate in therapy 3. Cardio: s/p type A aortic dissection s/p repair on 10/04/18 with poorly controlled HTN with recent hypotensive episode at [facility] on 10/14, most BP meds held, was taking labetolol 100mg po TID c/u this regimen - f/u with cardiac surgeon -mild hyponatremia- c/u restrict to 1500cc and monitor- resolving 4. Resp: monitor for infection, encourage incentive spirometry, guaifenesin ordered and ipratropium -CT scan over the weekend shows persistent right pleural effusion, patient denies having worsening shortness of breath, c/u increased dose of lasix 40mg daily, unless worsening symptoms will avoid any surgical interventions at this time -CXR no infiltrate 5. Endo: pmh hypothyroidism, c/u Synthroid DM- c/u insulin coverage, and c/u to hold metformin 6. : Ucx positive for E. Coli c/u 10 day course of Cefdinir 6. DVT ppx: heparin and TEDs 7. GI ppx: protonix BID 7. Pain: Tylenol prn 9. 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 ID: leukocytosis resolved, will consider alerting cardiac surgeon to loculated substernal fluid seen on recent CT if leukocytosis returns 8. Dispo: 11/12/18 to home, progressing towards goals Allergies Coded Allergies: morphine (Verified Adverse Reaction, Mild, 10/18/18) "facial flushing" Vital Signs Vital Signs Date Time Temp Pulse Resp B/P (MAP) Pulse Ox O2 Delivery O2 Flow Rate FiO2 10/30/18 14:33 94 134/68 10/30/18 14:00 98.6 18 94 Laboratory Data CBC/BMP Laboratory Tests 10/30/18 06:44 Red Blood Count 3.39 L, Mean Corpuscular Volume 89.1, Mean Corpuscular Hemoglobin 28.3, Mean Corpuscular Hemoglobin Concent 31.8 L, Red Cell Distribution Width 16.9 H Labs 24H Laboratory Tests 2 10/29/18 17:23: 10/29/18 20:11: Bedside Glucose (Misc Panel) 170H 10/30/18 06:44: Nucleated Red Blood Cells % (auto) 0.0, Iron Level 29L, Total Iron Binding Capacity 211L, Transferrin % Saturation 13.7 10/30/18 06:45: Bedside Glucose (Misc Panel) 119H 10/30/18 12:03: Bedside Glucose (Misc Panel) 188H Microbiology Microbiology 10/26/18 Urine Culture - Final, Complete Current Medications Current Medications Current Medications Medications (Trade) Dose Ordered Sig/Chirag Route PRN Reason Start Time Stop Time Status Last Admin Dose Admin Acetaminophen (Tylenol Tab) 650 mg Q4HP PRN PO MILD PAIN (PS 1-4) 10/18/18 16:30 10/29/18 21:02 Ascorbic Acid (Vitamin C) 500 mg DAILY PO 10/19/18 09:00 10/30/18 09:07 Aspirin (Aspirin Chewable) 81 mg DAILY PO 10/19/18 09:00 10/30/18 09:08 Bisacodyl (Dulcolax Suppository) 10 mg DAILYPRN PRN [place] CONSTIPATION 10/18/18 16:30 Calcium/Vitamin D (Oscal D) 500 mg DAILY PO 10/19/18 09:00 10/30/18 09:07 Cefdinir (Omnicef) 300 mg BID PO 10/19/18 21:00 10/26/18 09:01 DC 10/26/18 08:59 Cefdinir (Omnicef) 300 mg BID PO 10/26/18 14:00 10/27/18 10:59 DC 10/27/18 10:19 Dextrose (Dextrose 50%) 25 ml ASDIRECTED PRN IV SEE LABEL COMMENTS 10/18/18 16:30 Docusate Sodium (Colace) 100 mg BID PO 10/18/18 21:00 10/30/18 09:08 Ferrous Gluconate (Fergon) 324 mg BID PO 10/18/18 21:00 10/30/18 09:07 Fluoxetine HCl (PROzac) 20 mg DAILY PO 10/19/18 09:00 10/24/18 11:52 DC 10/24/18 08:30 Fluoxetine HCl (PROzac) 20 mg QHS PO 10/25/18 21:00 10/29/18 21:02 Folic Acid (Folic Acid) 1 mg DAILY PO 10/19/18 09:00 10/30/18 09:08 Furosemide (Lasix) 20 mg DAILY PO 10/19/18 09:00 10/27/18 10:59 DC 10/26/18 08:57 Furosemide (Lasix) 40 mg DAILY PO 10/28/18 09:00 10/30/18 09:07 Glucagon (Glucagon) 1 mg ASDIRECTED PRN SC SEE LABEL COMMENTS 10/18/18 16:30 Glucose (Glucose) 16 GM ASDIRECTED PRN PO SEE LABEL COMMENTS 10/18/18 16:30 Guaifenesin (Robitussin Tab) 400 mg TID PO 10/22/18 16:15 10/30/18 09:07 Heparin Sodium (Porcine) (Heparin) 5,000 units Q12H SQ 10/18/18 21:00 10/30/18 09:05 Home Med (Med Rec Complete!) ASDIRECTED XX 10/18/18 17:30 10/18/18 17:30 DC Insulin Detemir (Levemir Insulin) 10 units QHS SC 10/18/18 21:00 10/29/18 21:03 Insulin Human Lispro (HumaLOG INSULIN) SEE PROTOCOL TABLE AC SC 10/18/18 17:30 10/30/18 12:51 Insulin Human Lispro (HumaLOG INSULIN) SEE PROTOCOL TABLE QHS SC 10/18/18 21:00 10/21/18 20:42 Ipratropium [place] (Atrovent 0.02%) 0.5 mg RBID INH 10/22/18 20:00 10/29/18 21:32 Labetalol HCl (Normodyne, Trandate) 50 mg BID PO 10/18/18 21:00 10/19/18 07:40 DC 10/18/18 21:07 Labetalol HCl (Normodyne, Trandate) 50 mg Q8H PO 10/21/18 14:00 10/26/18 13:53 DC 10/26/18 05:45 Labetalol HCl (Normodyne, Trandate) 50 mg TID PO 10/18/18 21:00 10/18/18 21:00 DC Labetalol HCl (Normodyne, Trandate) 50 mg TID PO 10/19/18 09:00 10/21/18 14:36 DC 10/21/18 09:23 Labetalol HCl (Normodyne, Trandate) 100 mg Q8H PO 10/26/18 14:00 10/30/18 14:33 Lactobacillus Acidophilus (Bacid) 1 ea WM PO 10/19/18 18:00 10/30/18 12:50 Levetiracetam (Keppra) 250 mg BID PO 10/30/18 09:00 10/30/18 09:08 Levetiracetam (Keppra) 750 mg BID PO 10/29/18 21:00 10/29/18 21:00 DC Levetiracetam (Keppra) 1,000 mg BID PO 10/18/18 21:00 10/29/18 16:23 DC 10/29/18 09:11 Levothyroxine Sodium (Synthroid) 75 mcg DAILY@06 PO 10/19/18 06:00 10/30/18 05:31 Magnesium Hydroxide (Milk Of Magnesia) 30 ml DAILYPRN PRN PO CONSTIPATION 10/18/18 16:30 Menthol/Methyl Salicylate (Bengay Cream) apply to posterior ... TID TOP 10/25/18 09:00 10/30/18 09:08 Miscellaneous (Unresolved Clarification Entry) SEE LABEL COMMENTS DAILY XX 10/25/18 09:00 10/26/18 09:10 DC Pantoprazole Sodium (Protonix) 40 mg BID PO 10/18/18 21:00 10/30/18 09:07 Pantoprazole Sodium (Protonix) 40 mg QHS PO 10/18/18 21:00 10/18/18 21:00 DC Rosuvastatin Calcium (Crestor) 20 mg QHS PO 10/18/18 21:00 10/29/18 21:01 Senna (Senokot) 1 tab QHS PO 10/18/18 21:00 10/29/18 21:03 Trazodone HCl (Desyrel) 25 mg Q6HP PRN PO AGITATION 10/18/18 16:30 10/24/18 11:53 DC 10/19/18 03:07 Trazodone HCl (Desyrel) 25 mg QHS PO 10/21/18 21:00 10/24/18 11:53 DC 10/23/18 20:30 Trazodone HCl (Desyrel) 25 mg QHS PO 10/28/18 21:00 10/29/18 21:00 Trazodone HCl (Desyrel) 50 mg QHS PO 10/18/18 21:00 10/21/18 14:38 DC 10/20/18 20:19 CHRIS CORDON MD Oct 30, 2018 16:48
[2018-10-30] MEDS: ACETAMINOPHEN TAB 650MG DOSE (2X325MG) PO PRN (17:52)
[2018-10-30 20:00] VITALS: BP 111/59
[2018-10-30] MEDS: LEVEMIR (INSULIN DETEMIR) 1 UNITS/0.01ML SC SCH (21:05)
[2018-10-30] MEDS: SENNA 8.6 MG TAB (SENOKOT) PO SCH (21:06)
[2018-10-30] MEDS: traZODone 25MG PER 1/2 TABLET PO SCH (21:06)
[2018-10-30] MEDS: FLUoxetine 20 MG CAP PO SCH (21:06)
[2018-10-30] MEDS: ROSUVASTATIN 10 MG TAB (CRESTOR) PO SCH (21:11)
[2018-10-31] MEDS: LABETALOL 100 MG TAB PO SCH ×3 (05:29→21:20)
[2018-10-31] MEDS: LEVOTHYROXINE 75MCG TABLET (0.075MG) PO SCH (05:29)
[2018-10-31 05:33] VITALS: BP 158/78
[2018-10-31] MEDS: HumaLOG INSULIN (NovoLOG) PER UNIT SC SCH ×4 (07:30→21:00)
[2018-10-31] MEDS: ACETAMINOPHEN TAB 650MG DOSE (2X325MG) PO PRN (07:50)
[2018-10-31] MEDS: guaiFENesin 200 MG TAB PO SCH ×3 (08:15→21:21)
[2018-10-31] MEDS: PANTOPRAZOLE 40MG TAB (PROTONIX) PO SCH ×2 (08:15→21:21)
[2018-10-31] MEDS: ASPIRIN 81 MG CHEW TABLET PO SCH (08:15)
[2018-10-31] MEDS: CALCIUM/VITAMIN D 500 MG TAB PO SCH (08:15)
[2018-10-31] MEDS: FUROSEMIDE 40 MG TAB PO SCH (08:15)
[2018-10-31] MEDS: HEPARIN SOD (PORCINE) 5000 UNITS/ML VIAL SQ SCH ×2 (08:15→21:19)
[2018-10-31] MEDS: FOLIC ACID 1 MG TAB PO SCH (08:15)
[2018-10-31] MEDS: ASCORBIC ACID 500 MG TAB PO SCH (08:15)
[2018-10-31] MEDS: FERROUS GLUCONATE 324 MG TAB PO SCH ×2 (08:15→21:21)
[2018-10-31] MEDS: DOCUSATE SODIUM 100 MG CAP PO SCH ×2 (08:15→21:19)
[2018-10-31] MEDS: levETIRAcetam 250MG TABLET (KEPPRA) PO SCH ×2 (08:15→21:19)
[2018-10-31] MEDS: LACTOBACILLUS ACIDOPHILUS CAP (BACID) PO SCH ×3 (08:15→17:28)
[2018-10-31] MEDS: ANALGESIC BALM CRM 120 GM TOP SCH ×3 (08:15→21:23)
--- NOTE | 2018-10-31 11:23 | IPNPDOC ---
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 She otherwise feels overwhelmed about her condition. REVIEW OF SYSTEMS: The following is a completed review of systems and has been reviewed. Review of systems otherwise unremarkable. PAIN: Patient self reports no pain EYES: No recent vision changes EARS, NOSE, & THROAT: +dysphagia CARDIOVASCULAR: + chest pain (sternal wall pain, TTP)-resolved PULMONARY: Denies shortness of breath GASTROINTESTINAL: Denies constipation/diarrhea GENITOURINARY: +incontinence MUSCULOSKELETAL: LUE weakness NEUROLOGICAL:+ seizures, +LUE paresis and apraxia SKIN: abdominal incisions and sternal scar PSYCHIATRIC: agitated, but pleasant All other review of systems found to be negative. PHYSICAL EXAMINATION: VITAL SIGNS: Please see below. GENERAL: Pleasant and cooperative. No acute distress. mildly agitated HEENT: PERRL. Extraocular movements intact. Clear conjunctiva, left facial droop CARDIOVASCULAR: Regular rate and rhythm. No murmurs, rubs, or gallops, +TTP sternum LUNGS: Clear to auscultation bilaterally. No wheezes. No rhonchi, decreased breath sounds at bases (poor inspiratory effort) ABDOMEN: Soft, nontender, nondistended. Positive bowel sounds. Normal active bowel sounds NEUROLOGICAL: Alert and oriented to self and location, had difficulty following commands consistently, +apraxia Cranial nerves II through XII grossly intact except for left sided facial droop, extinction to touch on the left side, otherwise sensation intact to light touch EXTREMITIES: 5\\5 strength right upper extremities. 3/5 left elbow flexors/extensors, 2/5 medical oncology physician and wrist extension 5\\5 strength right lower extremity. 4/5 strength in left lower extremity. SKIN: no sacral ulcers, sternal incision healing well, abdominal incisions with mild erythema ASSESSMENT:73 year-old F with past medical history of HTN, DM, CKD2 who presents status post abdominal aortic dissection repair complicated by right frontal infarct. 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 Neuro: s/p right frontal lobe infarct, c/u ASA and statin, maintain good BP control, CT scan over the weekend ordered to altered mental status, no acute changes -c/u Prozac for motor recovery qHS -new onset GCT seizures, Keppra levels 70, a couple of doses held over the weekend, will c/u at lower dose 250mg and recheck levels, may be contributing to patients low energy, however she is able to participate in therapy- lethargy/arousal levels are improving 3. Cardio: s/p type A aortic dissection s/p repair on 10/04/18 with poorly controlled HTN with recent hypotensive episode at [facility] on 10/14, most BP meds held, was taking labetolol 100mg po TID c/u this regimen - f/u with cardiac surgeon -mild hyponatremia- c/u restrict to 1500cc and monitor- resolving 4. Resp: monitor for infection, encourage incentive spirometry, guaifenesin ordered and ipratropium -CT scan over the weekend shows persistent right pleural effusion, patient denies having worsening shortness of breath, c/u increased dose of lasix 40mg daily, unless worsening symptoms will avoid any surgical interventions at this time -CXR no infiltrate 5. Endo: pmh hypothyroidism, c/u Synthroid DM- c/u insulin coverage, and c/u to hold metformin 6. : Ucx positive for E. Coli s/p 10 day course of Cefdinir 6. DVT ppx: heparin and TEDs 7. GI ppx: protonix BID 7. Pain: will change Tylenol to standing and trial lidoderm patch to sternum for chest wall/incisional pain 9. 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 ID: leukocytosis resolved, will consider alerting cardiac surgeon to loculated substernal fluid seen on recent CT if leukocytosis returns-stable 8. Dispo: 11/12/18 to home, progressing towards goals Allergies Coded Allergies: morphine (Verified Adverse Reaction, Mild, 10/18/18) "facial flushing" Vital Signs Vital Signs Date Time Temp Pulse Resp B/P (MAP) Pulse Ox O2 Delivery O2 Flow Rate FiO2 10/31/18 05:33 98.8 83 18 158/78 (104) 94 Laboratory Data Labs 24H Laboratory Tests 2 10/30/18 12:03: Bedside Glucose (Misc Panel) 188H 10/30/18 16:53: Bedside Glucose (Misc Panel) 187H 10/30/18 20:02: Bedside Glucose (Misc Panel) 173H 10/31/18 06:35: Bedside Glucose (Misc Panel) 96 Microbiology Microbiology 10/26/18 Urine Culture - Final, Complete Current Medications Current Medications Current Medications Medications (Trade) Dose Ordered Sig/Chirag Route PRN Reason Start Time Stop Time Status Last Admin Dose Admin Acetaminophen (Tylenol Tab) 650 mg Q4HP PRN PO MILD PAIN (PS 1-4) 10/18/18 16:30 10/31/18 07:50 Ascorbic Acid (Vitamin C) 500 mg DAILY PO 10/19/18 09:00 10/31/18 08:15 Aspirin (Aspirin Chewable) 81 mg DAILY PO 10/19/18 09:00 10/31/18 08:15 Bisacodyl (Dulcolax Suppository) 10 mg DAILYPRN PRN [place] CONSTIPATION 10/18/18 16:30 Calcium/Vitamin D (Oscal D) 500 mg DAILY PO 10/19/18 09:00 10/31/18 08:15 Cefdinir (Omnicef) 300 mg BID PO 10/19/18 21:00 10/26/18 09:01 DC 10/26/18 08:59 Cefdinir (Omnicef) 300 mg BID PO 10/26/18 14:00 10/27/18 10:59 DC 10/27/18 10:19 Dextrose (Dextrose 50%) 25 ml ASDIRECTED PRN IV SEE LABEL COMMENTS 10/18/18 16:30 Docusate Sodium (Colace) 100 mg BID PO 10/18/18 21:00 10/31/18 08:15 Ferrous Gluconate (Fergon) 324 mg BID PO 10/18/18 21:00 10/31/18 08:15 Fluoxetine HCl (PROzac) 20 mg DAILY PO 10/19/18 09:00 10/24/18 11:52 DC 10/24/18 08:30 Fluoxetine HCl (PROzac) 20 mg QHS PO 10/25/18 21:00 10/30/18 21:06 Folic Acid (Folic Acid) 1 mg DAILY PO 10/19/18 09:00 10/31/18 08:15 Furosemide (Lasix) 20 mg DAILY PO 10/19/18 09:00 10/27/18 10:59 DC 10/26/18 08:57 Furosemide (Lasix) 40 mg DAILY PO 10/28/18 09:00 10/31/18 08:15 Glucagon (Glucagon) 1 mg ASDIRECTED PRN SC SEE LABEL COMMENTS 10/18/18 16:30 Glucose (Glucose) 16 GM ASDIRECTED PRN PO SEE LABEL COMMENTS 10/18/18 16:30 Guaifenesin (Robitussin Tab) 400 mg TID PO 10/22/18 16:15 10/31/18 08:15 Heparin Sodium (Porcine) (Heparin) 5,000 units Q12H SQ 10/18/18 21:00 10/31/18 08:15 Home Med (Med Rec Complete!) ASDIRECTED XX 10/18/18 17:30 10/18/18 17:30 DC Insulin Detemir (Levemir Insulin) 10 units QHS SC 10/18/18 21:00 10/30/18 21:05 Insulin Human Lispro (HumaLOG INSULIN) SEE PROTOCOL TABLE AC SC 10/18/18 17:30 10/30/18 17:51 Insulin Human Lispro (HumaLOG INSULIN) SEE PROTOCOL TABLE QHS FL 10/18/18 21:00 10/21/18 20:42 Ipratropium [place] (Atrovent 0.02%) 0.5 mg RBID INH 10/22/18 20:00 10/30/18 21:26 Labetalol HCl (Normodyne, Trandate) 50 mg BID PO 10/18/18 21:00 10/19/18 07:40 DC 10/18/18 21:07 Labetalol HCl (Normodyne, Trandate) 50 mg Q8H PO 10/21/18 14:00 10/26/18 13:53 DC 10/26/18 05:45 Labetalol HCl (Normodyne, Trandate) 50 mg TID PO 10/18/18 21:00 10/18/18 21:00 DC Labetalol HCl (Normodyne, Trandate) 50 mg TID PO 10/19/18 09:00 10/21/18 14:36 DC 10/21/18 09:23 Labetalol HCl (Normodyne, Trandate) 100 mg Q8H PO 10/26/18 14:00 10/31/18 05:29 Lactobacillus Acidophilus (Bacid) 1 ea WM PO 10/19/18 18:00 10/31/18 08:15 Levetiracetam (Keppra) 250 mg BID PO 10/30/18 09:00 10/31/18 08:15 Levetiracetam (Keppra) 750 mg BID PO 10/29/18 21:00 10/29/18 21:00 DC Levetiracetam (Keppra) 1,000 mg BID PO 10/18/18 21:00 10/29/18 16:23 DC 10/29/18 09:11 Levothyroxine Sodium (Synthroid) 75 mcg DAILY@06 PO 10/19/18 06:00 10/31/18 05:29 Magnesium Hydroxide (Milk Of Magnesia) 30 ml DAILYPRN PRN PO CONSTIPATION 10/18/18 16:30 Menthol/Methyl Salicylate (Bengay Cream) apply to posterior ... TID TOP 10/25/18 09:00 10/31/18 08:15 Miscellaneous (Unresolved Clarification Entry) SEE LABEL COMMENTS DAILY XX 10/25/18 09:00 10/26/18 09:10 DC Pantoprazole Sodium (Protonix) 40 mg BID PO 10/18/18 21:00 10/31/18 08:15 Pantoprazole Sodium (Protonix) 40 mg QHS PO 10/18/18 21:00 10/18/18 21:00 DC Rosuvastatin Calcium (Crestor) 20 mg QHS PO 10/18/18 21:00 10/30/18 21:11 Senna (Senokot) 1 tab QHS PO 10/18/18 21:00 10/30/18 21:06 Trazodone HCl (Desyrel) 25 mg Q6HP PRN PO AGITATION 10/18/18 16:30 10/24/18 11:53 DC 10/19/18 03:07 Trazodone HCl (Desyrel) 25 mg QHS PO 10/21/18 21:00 10/24/18 11:53 DC 10/23/18 20:30 Trazodone HCl (Desyrel) 25 mg QHS PO 10/28/18 21:00 10/30/18 21:06 Trazodone HCl (Desyrel) 50 mg QHS PO 10/18/18 21:00 10/21/18 14:38 DC 10/20/18 20:19 CHRIS CORDON MD Oct 31, 2018 11:23
[2018-10-31 12:00] VITALS: BP 133/67
[2018-10-31] MEDS ORDERED: LIDOCAINE 5% (LIDODERM) PATCH TD SCH (12:00)
[2018-10-31] MEDS: IPRATROPIUM 0.02% SOLN 0.5MG/2.5 ML NEB INH SCH ×2 (13:25→20:02)
[2018-10-31 14:00] VITALS: BP 133/67
[2018-10-31] MEDS ORDERED: LIDOCAINE 5% (LIDODERM) PATCH TD ONE (17:00)
[2018-10-31] MEDS: ACETAMINOPHEN 500 MG TAB PO SCH ×2 (17:28→21:21)
[2018-10-31] MEDS ORDERED: **NOTE PATIENT COMMENT** MISC XX SCH (21:00)
[2018-10-31 21:18] VITALS: BP 118/58
[2018-10-31] MEDS: SENNA 8.6 MG TAB (SENOKOT) PO SCH (21:19)
[2018-10-31] MEDS: ROSUVASTATIN 10 MG TAB (CRESTOR) PO SCH (21:20)
[2018-10-31] MEDS: FLUoxetine 20 MG CAP PO SCH (21:20)
[2018-10-31] MEDS: traZODone 25MG PER 1/2 TABLET PO SCH (21:21)
[2018-10-31] MEDS: LEVEMIR (INSULIN DETEMIR) 1 UNITS/0.01ML SC SCH (21:22)
[2018-10-31] MEDS: **NOTE PATIENT COMMENT** MISC XX SCH (21:23)
--- NOTE | 2018-10-31 22:13 | IPNPDOC ---
Text Note Date of Service The patient was seen on 10/31/18. NOTE Subjective: Patient complains on the mild neck pain and soreness over his shoulder. No any acute event overnight Objective: General Exam: Positive: Alert, Cooperative, No Acute Distress, Other (left facial droop) Eye Exam: Positive: PERRLA, Conjunctiva & lids normal, EOMI; Negative: Sclera icteric ENT Exam: Positive: Atraumatic, Mucous membr. moist/pink, Pharynx Normal Neck Exam: Positive: Supple; Negative: JVD, thyromegaly Chest Exam: Positive: Normal air movement, Other (bilateral basal crackles.); Negative: Rhonchi, Wheezing Heart Exam: Positive: Rate Normal, Regular Rhythm, Normal S1, Normal S2; Negative: Murmurs, Rubs Abdomen Exam: Positive: Normal bowel sounds, Soft; Negative: Tenderness, Hepatospenomegaly Extremity Exam: Negative: Clubbing, Cyanosis, Edema Neuro Exam: Positive: Moves 4 limbs, follows command, slight left facial droop Assessment and plan She is a 73-year-old female on the acute rehab unit. She has had an acute right frontoparietal lobe infarct. Status post acute right frontoparietal infarct after surgery for aortic dissection on 10/04/2018 with left hemiparesis. She continues on aspirin, statin, blood pressure control with labetalol. UTI: Completed course of antibiotic therapy. Patient denies dysuria Anemia. Continues on iron supplementation New onset seizures after stroke. Continues on Keppra. Hypertension. Continue cardioprotective medication Hypothyroidism. Continues on Synthroid. Diabetes. Continues on insulin coverage. Gastrointestinal (GI) prophylaxis. Deep vein thrombosis (DVT) prophylaxis with heparin continues. VS,Fishbone, I+O VS, Fishbone, I+O Vital Signs Date Time Temp Pulse Resp B/P (MAP) Pulse Ox O2 Delivery O2 Flow Rate FiO2 10/31/18 21:20 93 118/58 10/31/18 21:18 97.6 18 95 I&O- Last 24 Hours up to 6 AM 10/31/18 06:00 Intake Total 540 ml Balance 540 ml PEREZ HUMPHREY DO Oct 31, 2018 22:13
[2018-11-01 04:00] VITALS: BP 141/76
[2018-11-01] MEDS: LEVOTHYROXINE 75MCG TABLET (0.075MG) PO SCH (05:27)
[2018-11-01] MEDS: LABETALOL 100 MG TAB PO SCH ×3 (05:27→21:17)
[2018-11-01 05:30] VITALS: BP 130/63
[2018-11-01] MEDS: HumaLOG INSULIN (NovoLOG) PER UNIT SC SCH ×4 (07:28→21:00)
[2018-11-01] MEDS: IPRATROPIUM 0.02% SOLN 0.5MG/2.5 ML NEB INH SCH ×2 (07:35→20:30)
[2018-11-01] MEDS: LACTOBACILLUS ACIDOPHILUS CAP (BACID) PO SCH ×3 (07:55→17:13)
[2018-11-01] MEDS: ASPIRIN 81 MG CHEW TABLET PO SCH (07:55)
[2018-11-01] MEDS: PANTOPRAZOLE 40MG TAB (PROTONIX) PO SCH ×2 (07:55→21:16)
[2018-11-01] MEDS: HEPARIN SOD (PORCINE) 5000 UNITS/ML VIAL SQ SCH ×2 (07:55→21:19)
[2018-11-01] MEDS: DOCUSATE SODIUM 100 MG CAP PO SCH ×2 (07:55→21:18)
[2018-11-01] MEDS: FERROUS GLUCONATE 324 MG TAB PO SCH ×2 (07:56→21:16)
[2018-11-01] MEDS: CALCIUM/VITAMIN D 500 MG TAB PO SCH (07:56)
[2018-11-01] MEDS: guaiFENesin 200 MG TAB PO SCH ×3 (07:56→21:16)
[2018-11-01] MEDS: levETIRAcetam 250MG TABLET (KEPPRA) PO SCH ×2 (07:56→21:16)
[2018-11-01] MEDS: FOLIC ACID 1 MG TAB PO SCH (07:56)
[2018-11-01] MEDS: ACETAMINOPHEN 500 MG TAB PO SCH ×3 (07:56→21:18)
[2018-11-01] MEDS: FUROSEMIDE 40 MG TAB PO SCH (07:57)
[2018-11-01] MEDS: ASCORBIC ACID 500 MG TAB PO SCH (07:57)
[2018-11-01] MEDS: ANALGESIC BALM CRM 120 GM TOP SCH ×3 (07:58→21:29)
[2018-11-01] MEDS: LIDOCAINE 5% (LIDODERM) PATCH TD SCH (07:58)
--- NOTE | 2018-11-01 10:09 | IPNPDOC ---
PM&R Progress Note DATE OF SERVICE: Nov 01, 2018 Digital Composer Progress Note Subjective: Patient seen in her room stating her right sternum is less painful with the lidoderm patch and that the pain returned once it was removed. REVIEW OF SYSTEMS: The following is a completed review of systems and has been reviewed. Review of systems otherwise unremarkable. PAIN: Patient self reports no pain EYES: No recent vision changes EARS, NOSE, & THROAT: +dysphagia CARDIOVASCULAR: + chest pain (sternal wall pain, TTP)-resolved PULMONARY: Denies shortness of breath GASTROINTESTINAL: Denies constipation/diarrhea GENITOURINARY: +incontinence MUSCULOSKELETAL: LUE weakness NEUROLOGICAL:+ seizures, +LUE paresis and apraxia SKIN: abdominal incisions and sternal scar PSYCHIATRIC: agitated, but pleasant All other review of systems found to be negative. PHYSICAL EXAMINATION: VITAL SIGNS: Please see below. GENERAL: Pleasant and cooperative. No acute distress. mildly agitated HEENT: PERRL. Extraocular movements intact. Clear conjunctiva, left facial droop CARDIOVASCULAR: Regular rate and rhythm. No murmurs, rubs, or gallops, +TTP sternum LUNGS: Clear to auscultation bilaterally. No wheezes. No rhonchi, decreased breath sounds at bases (poor inspiratory effort) ABDOMEN: Soft, nontender, nondistended. Positive bowel sounds. Normal active bowel sounds NEUROLOGICAL: Alert and oriented to self and location, had difficulty following commands consistently, +apraxia Cranial nerves II through XII grossly intact except for left sided facial droop, extinction to touch on the left side, otherwise sensation intact to light touch EXTREMITIES: 5\\5 strength right upper extremities. 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 4/5 strength in left lower extremity. SKIN: no sacral ulcers, sternal incision healing well, abdominal incisions with mild erythema ASSESSMENT:73 year-old F with past medical history of HTN, DM, CKD2 who p resents status post abdominal aortic dissection repair complicated by right frontal infarct. PLAN: 1.Rehab: PT- strengthen, stretch, maintain ROM bilat LE, improve endurance, balance, able to stand and walking further OT- strengthen, stretch, maintain ROM bilat U-E maintain sternal precautions SECURITY COORDINATOR- evaluate and treat cognitive impairments and dysphagia- level 2 and thins 2. Neuro: s/p right frontal lobe infarct, c/u ASA and statin, maintain good BP control -CT head 10/26/18 for AMS with no acute changes-improving neurological status -c/u Prozac for motor recovery qHS -new onset GCT seizures, Keppra levels 70, a couple of doses held over the weekend, will c/u at lower dose 250mg and recheck levels, may be contributing to patients low energy, however she is able to participate in therapy- lethargy/arousal levels are improving 3. Cardio: s/p type A aortic dissection s/p repair on 10/04/18 with poorly controlled HTN with recent hypotensive episode at [facility] on 10/14, most BP meds held, was taking labetolol 100mg po TID c/u this regimen - f/u with cardiac surgeon -mild hyponatremia- c/u restrict to 1500cc and monitor- resolving 4. Resp: monitor for infection, encourage incentive spirometry, guaifenesin ordered and ipratropium -CT scan 10/27/18 shows persistent right pleural effusion, patient denies having worsening shortness of breath, c/u increased dose of lasix 40mg daily, unless worsening symptoms will avoid any surgical interventions at this time-stable -CXR no infiltrate 5. Endo: pmh hypothyroidism, c/u Synthroid DM- c/u insulin coverage, and c/u to hold metformin 6. : Ucx positive for E. Coli s/p 10 day course of Cefdinir 6. DVT ppx: heparin and TEDs 7. GI ppx: protonix BID 7. Pain: will change Tylenol to standing, c/u lidoderm patch to sternum for chest wall/incisional pain 9. 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 ID: leukocytosis resolved, will consider alerting cardiac surgeon to loculated substernal fluid seen on recent CT if leukocytosis returns-stable 8. Dispo: 11/12/18 to home, progressing towards goals Allergies Coded Allergies: morphine (Verified Adverse Reaction, Mild, 10/18/18) "facial flushing" Vital Signs Vital Signs Date Time Temp Pulse Resp B/P (MAP) Pulse Ox O2 Delivery O2 Flow Rate FiO2 11/01/18 05:30 77 130/63 (85) 11/01/18 04:00 97.9 18 96 Laboratory Data Labs 24H Laboratory Tests 2 10/31/18 12:03: Bedside Glucose (Misc Panel) 166H 10/31/18 16:46: Bedside Glucose (Misc Panel) 174H 10/31/18 20:03: Bedside Glucose (Misc Panel) 161H 11/01/18 06:20: Bedside Glucose (Misc Panel) 99 Microbiology Microbiology 10/26/18 Urine Culture - Final, Complete Current Medications Current Medications Current Medications Medications (Trade) Dose Ordered Sig/Chirag Route PRN Reason Start Time Stop Time Status Last Admin Dose Admin Acetaminophen (Tylenol Tab) 650 mg Q4HP PRN PO MILD PAIN (PS 1-4) 10/18/18 16:30 10/31/18 11:24 DC 10/31/18 07:50 Acetaminophen (Tylenol Tab) 1,000 mg TID PO 10/31/18 16:00 11/01/18 07:56 Ascorbic Acid (Vitamin C) 500 mg DAILY PO 10/19/18 09:00 11/01/18 07:57 Aspirin (Aspirin Chewable) 81 mg DAILY PO 10/19/18 09:00 11/01/18 07:55 Bisacodyl (Dulcolax Suppository) 10 mg DAILYPRN PRN [place] CONSTIPATION 10/18/18 16:30 Calcium/Vitamin D (Oscal D) 500 mg DAILY PO 10/19/18 09:00 11/01/18 07:56 Cefdinir (Omnicef) 300 mg BID PO 10/19/18 21:00 10/26/18 09:01 DC 10/26/18 08:59 Cefdinir (Omnicef) 300 mg BID PO 10/26/18 14:00 10/27/18 10:59 DC 10/27/18 10:19 Dextrose (Dextrose 50%) 25 ml ASDIRECTED PRN IV SEE LABEL COMMENTS 10/18/18 16:30 Docusate Sodium (Colace) 100 mg BID PO 10/18/18 21:00 11/01/18 07:55 Ferrous Gluconate (Fergon) 324 mg BID PO 10/18/18 21:00 11/01/18 07:56 Fluoxetine HCl (PROzac) 20 mg DAILY PO 10/19/18 09:00 10/24/18 11:52 DC 10/24/18 08:30 Fluoxetine HCl (PROzac) 20 mg QHS PO 10/25/18 21:00 10/31/18 21:20 Folic Acid (Folic Acid) 1 mg DAILY PO 10/19/18 09:00 11/01/18 07:56 Furosemide (Lasix) 20 mg DAILY PO 10/19/18 09:00 10/27/18 10:59 DC 10/26/18 08:57 Furosemide (Lasix) 40 mg DAILY PO 10/28/18 09:00 11/01/18 07:57 Glucagon (Glucagon) 1 mg ASDIRECTED PRN SC SEE LABEL COMMENTS 10/18/18 16:30 Glucose (Glucose) 16 GM ASDIRECTED PRN PO SEE LABEL COMMENTS 10/18/18 16:30 Guaifenesin (Robitussin Tab) 400 mg TID PO 10/22/18 16:15 11/01/18 07:56 Heparin Sodium (Porcine) (Heparin) 5,000 units Q12H SQ 10/18/18 21:00 11/01/18 07:55 Home Med (Med Rec Complete!) ASDIRECTED XX 10/18/18 17:30 10/18/18 17:30 DC Insulin Detemir (Levemir Insulin) 10 units QHS SC 10/18/18 21:00 10/31/18 21:22 Insulin Human Lispro (HumaLOG INSULIN) SEE PROTOCOL TABLE AC SC 10/18/18 17:30 10/31/18 17:29 Insulin Human Lispro (HumaLOG INSULIN) SEE PROTOCOL TABLE QHS SC 10/18/18 21:00 10/21/18 20:42 Ipratropium [place] (Atrovent 0.02%) 0.5 mg RBID INH 10/22/18 20:00 11/01/18 07:35 Labetalol HCl (Normodyne, Trandate) 50 mg BID PO 10/18/18 21:00 10/19/18 07:40 DC 10/18/18 21:07 Labetalol HCl (Normodyne, Trandate) 50 mg Q8H PO 10/21/18 14:00 10/26/18 13:53 DC 10/26/18 05:45 Labetalol HCl (Normodyne, Trandate) 50 mg TID PO 10/18/18 21:00 10/18/18 21:00 DC Labetalol HCl (Normodyne, Trandate) 50 mg TID PO 10/19/18 09:00 10/21/18 14:36 DC 10/21/18 09:23 Labetalol HCl (Normodyne, Trandate) 100 mg Q8H PO 10/26/18 14:00 11/01/18 05:27 Lactobacillus Acidophilus (Bacid) 1 ea WM PO 10/19/18 18:00 11/01/18 07:55 Levetiracetam (Keppra) 250 mg BID PO 10/30/18 09:00 11/01/18 07:56 Levetiracetam (Keppra) 750 mg BID PO 10/29/18 21:00 10/29/18 21:00 DC Levetiracetam (Keppra) 1,000 mg BID PO 10/18/18 21:00 10/29/18 16:23 DC 10/29/18 09:11 Levothyroxine Sodium (Synthroid) 75 mcg DAILY@06 PO 10/19/18 06:00 11/01/18 05:27 Lidocaine (Lidoderm Patch) 1 patch DAILY TD 10/31/18 12:00 10/31/18 16:25 DC 10/31/18 12:26 Lidocaine (Lidoderm Patch) 2 patch DAILY TD 11/01/18 09:00 11/01/18 07:58 Magnesium Hydroxide (Milk Of Magnesia) 30 ml DAILYPRN PRN PO CONSTIPATION 10/18/18 16:30 Menthol/Methyl Salicylate (Bengay Cream) apply to posterior ... TID TOP 10/25/18 09:00 11/01/18 07:58 Miscellaneous (Unresolved Clarification Entry) SEE LABEL COMMENTS DAILY XX 10/25/18 09:00 10/26/18 09:10 DC Non-Formulary Medication ( See Comment Field Below ) REMOVE LIDODERM PATCH DAILY@21 XX 10/31/18 21:00 10/31/18 21:00 DC Non-Formulary Medication ( See Comment Field Below ) REMOVE LIDODERM PATCH DAILY@21 XX 10/31/18 21:00 10/31/18 21:23 Pantoprazole Sodium (Protonix) 40 mg BID PO 10/18/18 21:00 11/01/18 07:55 Pantoprazole Sodium (Protonix) 40 mg QHS PO 10/18/18 21:00 10/18/18 21:00 DC Rosuvastatin Calcium (Crestor) 20 mg QHS PO 10/18/18 21:00 10/31/18 21:20 Senna (Senokot) 1 tab QHS PO 10/18/18 21:00 10/31/18 21:19 Trazodone HCl (Desyrel) 25 mg Q6HP PRN PO AGITATION 10/18/18 16:30 10/24/18 11:53 DC 10/19/18 03:07 Trazodone HCl (Desyrel) 25 mg QHS PO 10/21/18 21:00 10/24/18 11:53 DC 10/23/18 20:30 Trazodone HCl (Desyrel) 25 mg QHS PO 10/28/18 21:00 10/31/18 21:21 Trazodone HCl (Desyrel) 50 mg QHS PO 10/18/18 21:00 10/21/18 14:38 DC 10/20/18 20:19 CHRIS CORDON MD Nov 01, 2018 10:09
[2018-11-01 11:14] LABS: BASO # 0.1 10^3/uL (0.0-0.2); BASO % 0.9 % (0.0-1.0); EOS # 0.3 10^3/uL (0.0-0.50); EOS % 3.2 % (0.0-3.0); HEMATOCRIT 33.1 % (36.0-47.0); HEMOGLOBIN 10.3 g/dl (12.0-15.5); LYMPH # 1.2 10^3/uL (1.5-4.5); MEAN CORPUSCULAR HEMOGLOBIN 29.3 pg (27.0-33.0); MEAN CORPUSCULAR HGB CONC 31.1 g/dl (32.0-36.5); MONO # 0.8 10^3/uL (0.0-0.8); MONO % 8.8 % (0.0-5.0); NEUTROPHILS # 6.7 10^3/uL (1.8-7.7); PLATELET COUNT, AUTOMATED 431 10^3/uL (150-450); RED BLOOD COUNT 3.52 10^6/uL (4.00-5.40); WHITE BLOOD COUNT 9.1 10^3/uL (4.0-10.0)
[2018-11-01 11:37] LABS: BLOOD UREA NITROGEN 19 MG/DL (7-18); CALCIUM LEVEL 9.3 MG/DL (8.8-10.2); CARBON DIOXIDE LEVEL 34 MEQ/L (21-32); CHLORIDE LEVEL 100 MEQ/L (98-107); CREATININE FOR GFR 0.84 MG/DL (0.55-1.30); GLOMERULAR FILTRATION RATE > 60.0 (>39); GLUCOSE, FASTING 129 MG/DL (70-100); POTASSIUM SERUM 3.7 MEQ/L (3.5-5.1); SODIUM LEVEL 139 MEQ/L (136-145)
[2018-11-01 14:19] VITALS: BP 134/64
[2018-11-01 20:00] VITALS: BP 127/60
[2018-11-01] MEDS: traZODone 25MG PER 1/2 TABLET PO SCH (21:16)
[2018-11-01] MEDS: SENNA 8.6 MG TAB (SENOKOT) PO SCH (21:16)
[2018-11-01] MEDS: ROSUVASTATIN 10 MG TAB (CRESTOR) PO SCH (21:17)
[2018-11-01] MEDS: LEVEMIR (INSULIN DETEMIR) 1 UNITS/0.01ML SC SCH (21:18)
[2018-11-01] MEDS: FLUoxetine 20 MG CAP PO SCH (21:18)
[2018-11-01] MEDS: **NOTE PATIENT COMMENT** MISC XX SCH (21:20)
[2018-11-02 06:00] VITALS: BP 183/88
[2018-11-02] MEDS: LEVOTHYROXINE 75MCG TABLET (0.075MG) PO SCH (06:24)
[2018-11-02] MEDS: LABETALOL 100 MG TAB PO SCH ×3 (06:24→23:04)
[2018-11-02 06:30] VITALS: BP 164/80
[2018-11-02] MEDS: IPRATROPIUM 0.02% SOLN 0.5MG/2.5 ML NEB INH SCH ×2 (07:46→19:28)
[2018-11-02] MEDS: guaiFENesin 200 MG TAB PO SCH ×3 (08:17→23:07)
[2018-11-02] MEDS: CALCIUM/VITAMIN D 500 MG TAB PO SCH (08:17)
[2018-11-02] MEDS: FOLIC ACID 1 MG TAB PO SCH (08:17)
[2018-11-02] MEDS: PANTOPRAZOLE 40MG TAB (PROTONIX) PO SCH ×2 (08:17→23:07)
[2018-11-02] MEDS: HEPARIN SOD (PORCINE) 5000 UNITS/ML VIAL SQ SCH ×2 (08:17→23:06)
[2018-11-02] MEDS: ASPIRIN 81 MG CHEW TABLET PO SCH (08:18)
[2018-11-02] MEDS: levETIRAcetam 250MG TABLET (KEPPRA) PO SCH ×2 (08:18→23:05)
[2018-11-02] MEDS: FERROUS GLUCONATE 324 MG TAB PO SCH ×2 (08:18→23:05)
[2018-11-02] MEDS: FUROSEMIDE 40 MG TAB PO SCH (08:18)
[2018-11-02] MEDS: LACTOBACILLUS ACIDOPHILUS CAP (BACID) PO SCH ×3 (08:18→17:35)
[2018-11-02] MEDS: DOCUSATE SODIUM 100 MG CAP PO SCH ×2 (08:18→23:04)
[2018-11-02] MEDS: LIDOCAINE 5% (LIDODERM) PATCH TD SCH (08:20)
[2018-11-02] MEDS: ACETAMINOPHEN 500 MG TAB PO SCH ×3 (08:20→23:05)
[2018-11-02] MEDS: ASCORBIC ACID 500 MG TAB PO SCH (08:20)
[2018-11-02] MEDS: ANALGESIC BALM CRM 120 GM TOP SCH ×3 (08:21→23:06)
[2018-11-02] MEDS: HumaLOG INSULIN (NovoLOG) PER UNIT SC SCH ×4 (08:22→21:00)
[2018-11-02] MEDS ORDERED: ONDANSETRON 4 MG TAB (S0181) PO PRN (11:00)
[2018-11-02 14:00] VITALS: BP 121/64
[2018-11-02 20:00] VITALS: BP 121/60
[2018-11-02] MEDS: **NOTE PATIENT COMMENT** MISC XX SCH (22:00)
[2018-11-02] MEDS: traZODone 25MG PER 1/2 TABLET PO SCH (23:05)
[2018-11-02] MEDS: ROSUVASTATIN 10 MG TAB (CRESTOR) PO SCH (23:05)
[2018-11-02] MEDS: SENNA 8.6 MG TAB (SENOKOT) PO SCH (23:05)
[2018-11-02] MEDS: FLUoxetine 20 MG CAP PO SCH (23:07)
[2018-11-02] MEDS: LEVEMIR (INSULIN DETEMIR) 1 UNITS/0.01ML SC SCH (23:07)
[2018-11-03] MEDS: LEVOTHYROXINE 75MCG TABLET (0.075MG) PO SCH (05:41)
[2018-11-03] MEDS: LABETALOL 100 MG TAB PO SCH ×3 (05:42→20:39)
[2018-11-03 06:00] VITALS: BP 136/69
[2018-11-03] MEDS: HumaLOG INSULIN (NovoLOG) PER UNIT SC SCH ×4 (07:30→20:19)
[2018-11-03] MEDS: IPRATROPIUM 0.02% SOLN 0.5MG/2.5 ML NEB INH SCH ×2 (08:08→20:16)
[2018-11-03] MEDS: FERROUS GLUCONATE 324 MG TAB PO SCH ×2 (09:30→20:38)
[2018-11-03] MEDS: levETIRAcetam 250MG TABLET (KEPPRA) PO SCH ×2 (09:30→20:39)
[2018-11-03] MEDS: CALCIUM/VITAMIN D 500 MG TAB PO SCH (09:30)
[2018-11-03] MEDS: HEPARIN SOD (PORCINE) 5000 UNITS/ML VIAL SQ SCH ×2 (09:30→20:38)
[2018-11-03] MEDS: DOCUSATE SODIUM 100 MG CAP PO SCH ×2 (09:30→20:39)
[2018-11-03] MEDS: LACTOBACILLUS ACIDOPHILUS CAP (BACID) PO SCH ×3 (09:31→17:22)
[2018-11-03] MEDS: FUROSEMIDE 40 MG TAB PO SCH (09:31)
[2018-11-03] MEDS: FOLIC ACID 1 MG TAB PO SCH (09:31)
[2018-11-03] MEDS: ASPIRIN 81 MG CHEW TABLET PO SCH (09:32)
[2018-11-03] MEDS: PANTOPRAZOLE 40MG TAB (PROTONIX) PO SCH ×2 (09:32→20:38)
[2018-11-03] MEDS: guaiFENesin 200 MG TAB PO SCH ×3 (09:32→20:38)
[2018-11-03] MEDS: ASCORBIC ACID 500 MG TAB PO SCH (09:32)
[2018-11-03] MEDS: ACETAMINOPHEN 500 MG TAB PO SCH ×3 (09:32→20:39)
[2018-11-03] MEDS: ANALGESIC BALM CRM 120 GM TOP SCH ×3 (09:33→20:38)
[2018-11-03] MEDS: LIDOCAINE 5% (LIDODERM) PATCH TD SCH (09:33)
[2018-11-03 14:00] VITALS: BP 140/69
--- NOTE | 2018-11-03 15:56 | IPNPDOC ---
Date Seen The patient was seen on 11/03/18. Progress Note SUBJECTIVE: Patient denies any complaints, states that she feels fine. No acute events reported overnight. OBJECTIVE PHYSICAL EXAMINATION: VITAL SIGNS: Please see below. General: No acute distress, Alert Eyes: Normal sclera, EOMI, DINESH HENT: Atraumatic, neck supple Cardiovascular: Normal rate, normal rhythm. Pulmonary: no wheezing GI: Soft, nontender, nondistended Skin: Warm and dry Neuro: CN grossly intact. L. sided weakness. LABORATORY DATA, IMAGING STUDIES, MICROBIOLOGY: Please see below. ASSESSMENT AND PLAN: 1. CVA - Recent admission for R. frontoparietal infarct after surgery for Aortic dissection 10/04 w/ L. hemiparesis. - c/w ASA, statin. - Rehab. 2. Seizures - c/w Keppra - Previously supratherapeutic, dose had been reduced to 250 mg BID. - f/u level on 11/01, adjust as needed. 3. HTN - c/w home meds. 4. Hypothyroidism -c/w synthroid 5. DM - ISS coverage. levemir 10 units daily seem to be controlling patient's BS well. 6. UTI - completed Abx course. VS, I&O, 24H, [facility] Vital Signs/I&O Vital Signs Date Time Temp Pulse Resp B/P (MAP) Pulse Ox O2 Delivery O2 Flow Rate FiO2 11/03/18 14:39 92 118/68 11/03/18 14:00 98.1 18 92 I&O- Last 24 Hours up to 6 AM 11/03/18 06:00 Intake Total 780 ml Output Total 0 ml Balance 780 ml Laboratory Data 24H LABS Laboratory Tests 2 11/02/18 16:55: Bedside Glucose (Misc Panel) 123H 11/02/18 20:32: Bedside Glucose (Misc Panel) 205H 11/03/18 06:48: Bedside Glucose (Misc Panel) 61L 11/03/18 06:57: Bedside Glucose Confirm (Misc) 66 11/03/18 07:28: Bedside Glucose (Misc Panel) 127H 11/03/18 12:03: Bedside Glucose (Misc Panel) 155H Microbiology Microbiology 10/26/18 Urine Culture - Final, Complete LATOSHA THOMPSON MD Nov 03, 2018 15:56
[2018-11-03 20:00] VITALS: BP 135/71
[2018-11-03] MEDS: LEVEMIR (INSULIN DETEMIR) 1 UNITS/0.01ML SC SCH (20:37)
[2018-11-03] MEDS: FLUoxetine 20 MG CAP PO SCH (20:38)
[2018-11-03] MEDS: traZODone 25MG PER 1/2 TABLET PO SCH (20:38)
[2018-11-03] MEDS: ROSUVASTATIN 10 MG TAB (CRESTOR) PO SCH (20:39)
[2018-11-03] MEDS: SENNA 8.6 MG TAB (SENOKOT) PO SCH (20:39)
[2018-11-03] MEDS: **NOTE PATIENT COMMENT** MISC XX SCH (21:00)
[2018-11-04] MEDS: LEVOTHYROXINE 75MCG TABLET (0.075MG) PO SCH (05:44)
[2018-11-04] MEDS: LABETALOL 100 MG TAB PO SCH ×3 (05:45→21:55)
[2018-11-04 06:00] VITALS: BP 160/80
[2018-11-04] MEDS: IPRATROPIUM 0.02% SOLN 0.5MG/2.5 ML NEB INH SCH ×2 (07:12→20:00)
[2018-11-04 07:52] LABS: HEMATOCRIT 31.9 % (36.0-47.0); HEMOGLOBIN 10.1 g/dl (12.0-15.5); MEAN CORPUSCULAR HEMOGLOBIN 28.5 pg (27.0-33.0); MEAN CORPUSCULAR HGB CONC 31.7 g/dl (32.0-36.5); MEAN CORPUSCULAR VOLUME 89.9 fl (80.0-96.0); PLATELET COUNT, AUTOMATED 418 10^3/uL (150-450); RED BLOOD COUNT 3.55 10^6/uL (4.00-5.40); WHITE BLOOD COUNT 9.8 10^3/uL (4.0-10.0)
[2018-11-04 08:16] LABS: BLOOD UREA NITROGEN 15 MG/DL (7-18); CALCIUM LEVEL 8.7 MG/DL (8.8-10.2); CARBON DIOXIDE LEVEL 30 MEQ/L (21-32); CHLORIDE LEVEL 100 MEQ/L (98-107); CREATININE FOR GFR 0.66 MG/DL (0.55-1.30); GLOMERULAR FILTRATION RATE > 60.0 (>39); GLUCOSE, FASTING 122 MG/DL (70-100); POTASSIUM SERUM 4.3 MEQ/L (3.5-5.1); SODIUM LEVEL 136 MEQ/L (136-145)
[2018-11-04] MEDS: guaiFENesin 200 MG TAB PO SCH ×3 (09:00→20:24)
--- NOTE | 2018-11-04 09:21 | IPNPDOC ---
Date Seen The patient was seen on 11/04/18. Progress Note SUBJECTIVE: Patient reports some muscle soreness over R. arm/chest from moving around/PT? but otherwise denies any other complaints. Afebrile overnight. WBC 9.8. Still pending Keppra level from 11/01 OBJECTIVE PHYSICAL EXAMINATION: VITAL SIGNS: Please see below. General: No acute distress, Alert Eyes: Normal sclera, EOMI, DINESH HENT: Atraumatic, neck supple Cardiovascular: Normal rate, normal rhythm. Pulmonary: no wheezing GI: Soft, nontender, nondistended Skin: Warm and dry Neuro: CN grossly intact. L. arm weakness 2/5 strength. LABORATORY DATA, IMAGING STUDIES, MICROBIOLOGY: Please see below. ASSESSMENT AND PLAN: 1. CVA - Recent admission for R. frontoparietal infarct after surgery for Aortic dissection 10/04 w/ L. hemiparesis. - c/w ASA, statin. - Rehab. 2. Seizures - c/w Keppra - Previously supratherapeutic, dose had been reduced to 250 mg BID. - f/u level on 11/01, adjust as needed. 3. HTN - c/w home meds. 4. Hypothyroidism -c/w synthroid 5. DM - ISS coverage. levemir 10 units daily seem to be controlling patient's BS well. 6. UTI - completed Abx course. VS, I&O, 24H, [facility] Vital Signs/I&O Vital Signs Date Time Temp Pulse Resp B/P (MAP) Pulse Ox O2 Delivery O2 Flow Rate FiO2 11/04/18 06:00 98.4 78 18 160/80 (106) 92 I&O- Last 24 Hours up to 6 AM 11/04/18 06:00 Intake Total 680 ml Balance 680 ml Laboratory Data 24H LABS Laboratory Tests 2 11/03/18 12:03: Bedside Glucose (Misc Panel) 155H 11/03/18 17:01: Bedside Glucose (Misc Panel) 146H 11/03/18 19:48: Bedside Glucose (Misc Panel) 177H 11/04/18 05:59: Bedside Glucose (Misc Panel) 110 11/04/18 07:22: Nucleated Red Blood Cells % (auto) 0.0, Anion Gap 6L, Glomerular Filtration Rate > 60.0, Blood Urea Nitrogen 15, Creatinine 0.66, Sodium Level 136, Potassium Level 4.3, Chloride Level 100, Carbon Dioxide Level 30, Calcium Level 8.7L CBC/BMP Laboratory Tests 11/04/18 07:22 Red Blood Count 3.55 L, Mean Corpuscular Volume 89.9, Mean Corpuscular Hemoglobin 28.5, Mean Corpuscular Hemoglobin Concent 31.7 L, Red Cell Distribution Width 17.0 H, Calcium Level 8.7 L Microbiology Microbiology 10/26/18 Urine Culture - Final, Complete LATOSHA THOMPSON MD Nov 04, 2018 09:21
[2018-11-04] MEDS: LIDOCAINE 5% (LIDODERM) PATCH TD SCH (09:55)
[2018-11-04] MEDS: ASPIRIN 81 MG CHEW TABLET PO SCH (09:55)
[2018-11-04] MEDS: DOCUSATE SODIUM 100 MG CAP PO SCH ×2 (09:56→20:24)
[2018-11-04] MEDS: FUROSEMIDE 40 MG TAB PO SCH (09:56)
[2018-11-04] MEDS: levETIRAcetam 250MG TABLET (KEPPRA) PO SCH ×2 (09:56→20:24)
[2018-11-04] MEDS: CALCIUM/VITAMIN D 500 MG TAB PO SCH (09:56)
[2018-11-04] MEDS: FOLIC ACID 1 MG TAB PO SCH (09:56)
[2018-11-04] MEDS: LACTOBACILLUS ACIDOPHILUS CAP (BACID) PO SCH ×3 (09:56→16:56)
[2018-11-04] MEDS: ASCORBIC ACID 500 MG TAB PO SCH (09:56)
[2018-11-04] MEDS: PANTOPRAZOLE 40MG TAB (PROTONIX) PO SCH ×2 (09:56→20:24)
[2018-11-04] MEDS: FERROUS GLUCONATE 324 MG TAB PO SCH ×2 (09:56→20:24)
[2018-11-04] MEDS: HEPARIN SOD (PORCINE) 5000 UNITS/ML VIAL SQ SCH ×2 (09:57→20:23)
[2018-11-04] MEDS: ACETAMINOPHEN 500 MG TAB PO SCH ×3 (09:57→20:24)
[2018-11-04] MEDS: ANALGESIC BALM CRM 120 GM TOP SCH ×3 (09:58→20:25)
[2018-11-04] MEDS: HumaLOG INSULIN (NovoLOG) PER UNIT SC SCH ×4 (09:59→19:56)
[2018-11-04 14:00] VITALS: BP 116/57
[2018-11-04 20:00] VITALS: BP 103/54
[2018-11-04] MEDS: traZODone 25MG PER 1/2 TABLET PO SCH (20:23)
[2018-11-04] MEDS: SENNA 8.6 MG TAB (SENOKOT) PO SCH (20:23)
[2018-11-04] MEDS: ROSUVASTATIN 10 MG TAB (CRESTOR) PO SCH (20:23)
[2018-11-04] MEDS: FLUoxetine 20 MG CAP PO SCH (20:24)
[2018-11-04] MEDS: LEVEMIR (INSULIN DETEMIR) 1 UNITS/0.01ML SC SCH (20:25)
[2018-11-04] MEDS: **NOTE PATIENT COMMENT** MISC XX SCH (20:44)
[2018-11-05 05:30] VITALS: BP 143/69
[2018-11-05] MEDS: LABETALOL 100 MG TAB PO SCH ×4 (05:49→21:43)
[2018-11-05] MEDS: LEVOTHYROXINE 75MCG TABLET (0.075MG) PO SCH (05:49)
[2018-11-05] MEDS: HumaLOG INSULIN (NovoLOG) PER UNIT SC SCH ×4 (07:16→21:00)
[2018-11-05] MEDS: IPRATROPIUM 0.02% SOLN 0.5MG/2.5 ML NEB INH SCH ×2 (07:49→20:51)
[2018-11-05] MEDS: LACTOBACILLUS ACIDOPHILUS CAP (BACID) PO SCH ×3 (08:00→17:18)
[2018-11-05] MEDS: ASPIRIN 81 MG CHEW TABLET PO SCH (08:48)
[2018-11-05] MEDS: levETIRAcetam 250MG TABLET (KEPPRA) PO SCH ×2 (08:48→20:21)
[2018-11-05] MEDS: HEPARIN SOD (PORCINE) 5000 UNITS/ML VIAL SQ SCH ×2 (08:48→20:20)
[2018-11-05] MEDS: PANTOPRAZOLE 40MG TAB (PROTONIX) PO SCH ×2 (08:49→20:21)
[2018-11-05] MEDS: CALCIUM/VITAMIN D 500 MG TAB PO SCH (08:49)
[2018-11-05] MEDS: FERROUS GLUCONATE 324 MG TAB PO SCH ×2 (08:49→20:20)
[2018-11-05] MEDS: DOCUSATE SODIUM 100 MG CAP PO SCH ×2 (08:49→20:20)
[2018-11-05] MEDS: ASCORBIC ACID 500 MG TAB PO SCH (08:49)
[2018-11-05] MEDS: FUROSEMIDE 40 MG TAB PO SCH (08:49)
[2018-11-05] MEDS: FOLIC ACID 1 MG TAB PO SCH (08:49)
[2018-11-05] MEDS: guaiFENesin 200 MG TAB PO SCH ×3 (08:50→20:21)
[2018-11-05] MEDS: ACETAMINOPHEN 500 MG TAB PO SCH ×3 (08:50→20:23)
[2018-11-05] MEDS: LIDOCAINE 5% (LIDODERM) PATCH TD SCH (08:51)
[2018-11-05] MEDS: ANALGESIC BALM CRM 120 GM TOP SCH ×3 (08:52→21:43)
[2018-11-05 14:00] VITALS: BP 126/68
--- NOTE | 2018-11-05 15:25 | IPNPDOC ---
PM&R Progress Note DATE OF SERVICE: Nov 05, 2018 Aviation Engineer Progress Note Subjective: Patient seen walking in therapy with increased speed and overall better attention. She states she is feeling well overall. REVIEW OF SYSTEMS: The following is a completed review of systems and has been reviewed. Review of systems otherwise unremarkable. PAIN: Patient self reports no pain EYES: No recent vision changes EARS, NOSE, & THROAT: +dysphagia CARDIOVASCULAR: + chest pain (sternal wall pain, TTP)-resolved PULMONARY: Denies shortness of breath GASTROINTESTINAL: Denies constipation/diarrhea GENITOURINARY: +incontinence MUSCULOSKELETAL: LUE weakness NEUROLOGICAL:+ seizures, +LUE paresis and apraxia SKIN: abdominal incisions and sternal scar PSYCHIATRIC: agitated, but pleasant All other review of systems found to be negative. PHYSICAL EXAMINATION: VITAL SIGNS: Please see below. GENERAL: Pleasant and cooperative. No acute distress. mildly agitated HEENT: PERRL. Extraocular movements intact. Clear conjunctiva, left facial droop CARDIOVASCULAR: Regular rate and rhythm. No murmurs, rubs, or gallops, +TTP sternum LUNGS: Clear to auscultation bilaterally. No wheezes. No rhonchi, decreased breath sounds at bases (poor inspiratory effort) ABDOMEN: Soft, nontender, nondistended. Positive bowel sounds. Normal active bowel sounds NEUROLOGICAL: Alert and oriented to self and location, had difficulty following commands consistently, +apraxia Cranial nerves II through XII grossly intact except for left sided facial droop, extinction to touch on the left side, otherwise sensation intact to light touch EXTREMITIES: 5\\5 strength right upper extremities. 3/5 left elbow flexors/extensors, 2/5 ciaio lumite injector and wrist extension 5\\5 strength right lower extremity. 4/5 strength in left lower extremity. SKIN: no sacral ulcers, sternal incision healing well, abdominal incisions with mild erythema ASSESSMENT:73 year-old F with past medical history of HTN, DM, CKD2 who presents status post abdominal aortic dissection repair complicated by right frontal infarct. PLAN: 1.Rehab: PT- strengthen, stretch, maintain ROM bilat LE, improve endurance, balance, able to stand and walking further OT- strengthen, stretch, maintain ROM bilat U-E maintain sternal precautions EXTERMINATOR- evaluate and treat cognitive impairments and dysphagia- level 2 and thins 2. Neuro: s/p right frontal lobe infarct, c/u ASA and statin, maintain good BP control -CT head 10/26/18 for AMS with no acute changes-improving neurological status -c/u Prozac for motor recovery qHS -new onset GCT seizures, c/u lower dose Keppra 250 BID- Keppra level 25, will recheck and adjust prior to discharge 3. Cardio: s/p type A aortic dissection s/p repair on 10/04/18 with poorly controlled HTN with recent hypotensive episode at [facility] on 10/14, most BP meds held, was taking labetolol 100mg po TID c/u this regimen - f/u with cardiac surgeon -mild hyponatremia- c/u restrict to 1500cc and monitor- resolving 4. Resp: monitor for infection, encourage incentive spirometry, guaifenesin ordered and ipratropium -CT scan 10/27/18 shows persistent right pleural effusion, patient denies having worsening shortness of breath, c/u increased dose of lasix 40mg daily, unless worsening symptoms will avoid any surgical interventions at this time-stable -CXR no infiltrate 5. Endo: pmh hypothyroidism, c/u Synthroid DM- c/u insulin coverage, and c/u to hold metformin 6. : Ucx positive for E. Coli s/p 10 day course of Cefdinir 6. DVT ppx: heparin and TEDs 7. GI ppx: protonix BID 7. Pain: will change Tylenol to standing, c/u lidoderm patch to sternum for chest wall/incisional pain 9. 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 ID: leukocytosis resolved, will consider alerting cardiac surgeon to loculated substernal fluid seen on recent CT if leukocytosis returns-stable 8. Dispo: 11/12/18 to home, progressing towards goals Allergies Coded Allergies: morphine (Verified Adverse Reaction, Mild, 10/18/18) "facial flushing" Vital Signs Vital Signs Date Time Temp Pulse Resp B/P (MAP) Pulse Ox O2 Delivery O2 Flow Rate FiO2 11/05/18 05:49 85 143/69 11/05/18 05:30 98.6 17 92 Laboratory Data Labs 24H Laboratory Tests 2 11/04/18 16:37: Bedside Glucose (Misc Panel) 182H 11/04/18 19:44: Bedside Glucose (Misc Panel) 166H 11/05/18 05:56: Bedside Glucose (Misc Panel) 98 11/05/18 11:49: Bedside Glucose (Misc Panel) 133H Microbiology Microbiology 10/26/18 Urine Culture - Final, Complete Current Medications Current Medications Current Medications Medications (Trade) Dose Ordered Sig/Chirag Route PRN Reason Start Time Stop Time Status Last Admin Dose Admin Acetaminophen (Tylenol Tab) 650 mg Q4HP PRN PO MILD PAIN (PS 1-4) 10/18/18 16:30 10/31/18 11:24 DC 10/31/18 07:50 Acetaminophen (Tylenol Tab) 1,000 mg TID PO 10/31/18 16:00 11/05/18 08:50 Ascorbic Acid (Vitamin C) 500 mg DAILY PO 10/19/18 09:00 11/05/18 08:49 Aspirin (Aspirin Chewable) 81 mg DAILY PO 10/19/18 09:00 11/05/18 08:48 Bisacodyl (Dulcolax Suppository) 10 mg DAILYPRN PRN [place] CONSTIPATION 10/18/18 16:30 Calcium/Vitamin D (Oscal D) 500 mg DAILY PO 10/19/18 09:00 11/05/18 08:49 Cefdinir (Omnicef) 300 mg BID PO 10/19/18 21:00 10/26/18 09:01 DC 10/26/18 08:59 Cefdinir (Omnicef) 300 mg BID PO 10/26/18 14:00 10/27/18 10:59 DC 10/27/18 10:19 Dextrose (Dextrose 50%) 25 ml ASDIRECTED PRN IV SEE LABEL COMMENTS 10/18/18 16:30 Docusate Sodium (Colace) 100 mg BID PO 10/18/18 21:00 11/05/18 08:49 Ferrous Gluconate (Fergon) 324 mg BID PO 10/18/18 21:00 11/05/18 08:49 Fluoxetine HCl (PROzac) 20 mg DAILY PO 10/19/18 09:00 10/24/18 11:52 DC 10/24/18 08:30 Fluoxetine HCl (PROzac) 20 mg QHS PO 10/25/18 21:00 11/04/18 20:24 Folic Acid (Folic Acid) 1 mg DAILY PO 10/19/18 09:00 11/05/18 08:49 Furosemide (Lasix) 20 mg DAILY PO 10/19/18 09:00 10/27/18 10:59 DC 10/26/18 08:57 Furosemide (Lasix) 40 mg DAILY PO 10/28/18 09:00 11/05/18 08:49 Glucagon (Glucagon) 1 mg ASDIRECTED PRN SC SEE LABEL COMMENTS 10/18/18 16:30 Glucose (Glucose) 16 GM ASDIRECTED PRN PO SEE LABEL COMMENTS 10/18/18 16:30 Guaifenesin (Robitussin Tab) 400 mg TID PO 10/22/18 16:15 11/05/18 08:50 Heparin Sodium (Porcine) (Heparin) 5,000 units Q12H SQ 10/18/18 21:00 11/05/18 08:48 Home Med (Med Rec Complete!) ASDIRECTED XX 10/18/18 17:30 10/18/18 17:30 DC Insulin Detemir (Levemir Insulin) 10 units QHS SC 10/18/18 21:00 11/04/18 20:25 Insulin Human Lispro (HumaLOG INSULIN) SEE PROTOCOL TABLE AC SC 10/18/18 17:30 11/05/18 12:48 Insulin Human Lispro (HumaLOG INSULIN) SEE PROTOCOL TABLE QHS SC 10/18/18 21:00 10/21/18 20:42 Ipratropium [place] (Atrovent 0.02%) 0.5 mg RBID INH 10/22/18 20:00 11/05/18 07:49 Labetalol HCl (Normodyne, Trandate) 50 mg BID PO 10/18/18 21:00 10/19/18 07:40 DC 10/18/18 21:07 Labetalol HCl (Normodyne, Trandate) 50 mg Q8H PO 10/21/18 14:00 10/26/18 13:53 DC 10/26/18 05:45 Labetalol HCl (Normodyne, Trandate) 50 mg TID PO 10/18/18 21:00 10/18/18 21:00 DC Labetalol HCl (Normodyne, Trandate) 50 mg TID PO 10/19/18 09:00 10/21/18 14:36 DC 10/21/18 09:23 Labetalol HCl (Normodyne, Trandate) 100 mg Q8H PO 10/26/18 14:00 11/05/18 05:49 Lactobacillus Acidophilus (Bacid) 1 ea WM PO 10/19/18 18:00 11/05/18 12:48 Levetiracetam (Keppra) 250 mg BID PO 10/30/18 09:00 11/05/18 08:48 Levetiracetam (Keppra) 750 mg BID PO 10/29/18 21:00 10/29/18 21:00 DC Levetiracetam (Keppra) 1,000 mg BID PO 10/18/18 21:00 10/29/18 16:23 DC 10/29/18 09:11 Levothyroxine Sodium (Synthroid) 75 mcg DAILY@06 PO 10/19/18 06:00 11/05/18 05:49 Lidocaine (Lidoderm Patch) 1 patch DAILY TD 10/31/18 12:00 10/31/18 16:25 DC 10/31/18 12:26 Lidocaine (Lidoderm Patch) 2 patch DAILY TD 11/01/18 09:00 11/05/18 08:51 Magnesium Hydroxide (Milk Of Magnesia) 30 ml DAILYPRN PRN PO CONSTIPATION 10/18/18 16:30 Menthol/Methyl Salicylate (Bengay Cream) apply to posterior ... TID TOP 10/25/18 09:00 11/05/18 08:52 Miscellaneous (Unresolved Clarification Entry) SEE LABEL COMMENTS DAILY XX 10/25/18 09:00 10/26/18 09:10 DC Miscellaneous (Unresolved Clarification Entry) SEE LABEL COMMENTS DAILY XX 11/04/18 09:00 11/05/18 06:13 DC Miscellaneous (Unresolved Clarification Entry) SEE LABEL COMMENTS DAILY XX 11/05/18 09:00 11/05/18 14:51 DC Non-Formulary Medication ( See Comment Field Below ) REMOVE LIDODERM PATCH DAILY@21 XX 10/31/18 21:00 10/31/18 21:00 DC Non-Formulary Medication ( See Comment Field Below ) REMOVE LIDODERM PATCH DAILY@21 XX 10/31/18 21:00 11/04/18 20:44 Ondansetron HCl (Zofran) 4 mg Q6HP PRN PO NAUSEA OR VOMITING 11/02/18 11:00 11/02/18 12:53 Pantoprazole Sodium (Protonix) 40 mg BID PO 10/18/18 21:00 11/05/18 08:49 Pantoprazole Sodium (Protonix) 40 mg QHS PO 10/18/18 21:00 10/18/18 21:00 DC Rosuvastatin Calcium (Crestor) 20 mg QHS PO 10/18/18 21:00 11/04/18 20:23 Senna (Senokot) 1 tab QHS PO 10/18/18 21:00 11/04/18 20:23 Trazodone HCl (Desyrel) 25 mg Q6HP PRN PO AGITATION 10/18/18 16:30 10/24/18 11:53 DC 10/19/18 03:07 Trazodone HCl (Desyrel) 25 mg QHS PO 10/21/18 21:00 10/24/18 11:53 DC 10/23/18 20:30 Trazodone HCl (Desyrel) 25 mg QHS PO 10/28/18 21:00 11/04/18 20:23 Trazodone HCl (Desyrel) 50 mg QHS PO 10/18/18 21:00 10/21/18 14:38 DC 10/20/18 20:19 CHRIS CORDON MD Nov 05, 2018 15:25
[2018-11-05 20:00] VITALS: BP 121/65
[2018-11-05] MEDS: SENNA 8.6 MG TAB (SENOKOT) PO SCH (20:20)
[2018-11-05] MEDS: LEVEMIR (INSULIN DETEMIR) 1 UNITS/0.01ML SC SCH (20:20)
[2018-11-05] MEDS: FLUoxetine 20 MG CAP PO SCH (20:21)
[2018-11-05] MEDS: ROSUVASTATIN 10 MG TAB (CRESTOR) PO SCH (20:21)
[2018-11-05] MEDS: traZODone 25MG PER 1/2 TABLET PO SCH (20:22)
[2018-11-05] MEDS: **NOTE PATIENT COMMENT** MISC XX SCH (21:43)
[2018-11-06 05:57] VITALS: BP 160/98
[2018-11-06] MEDS: LABETALOL 100 MG TAB PO SCH ×3 (05:59→21:17)
[2018-11-06] MEDS: LEVOTHYROXINE 75MCG TABLET (0.075MG) PO SCH (05:59)
[2018-11-06 07:26] LABS: BASO # 0.1 10^3/uL (0.0-0.2); BASO % 1.1 % (0.0-1.0); EOS # 0.3 10^3/uL (0.0-0.5); EOS % 2.9 % (0.0-3.0); HEMATOCRIT 35.2 % (36.0-47.0); HEMOGLOBIN 11.2 g/dl (12.0-15.5); LYMPH # 1.4 10^3/uL (1.5-5.0); LYMPH % 15.9 % (24.0-44.0); MEAN CORPUSCULAR HEMOGLOBIN 29.2 pg (27.0-33.0); MEAN CORPUSCULAR HGB CONC 31.8 g/dl (32.0-36.5); MEAN CORPUSCULAR VOLUME 91.7 fl (80.0-96.0); MONO # 0.6 10^3/uL (0.0-0.8); MONO % 7.1 % (0.0-5.0); NEUTROPHILS # 6.1 10^3/uL (1.5-8.5); NEUTROPHILS % 72.1 % (36.0-66.0); PLATELET COUNT, AUTOMATED 426 10^3/uL (150-450); RED BLOOD COUNT 3.84 10^6/uL (4.00-5.40); WHITE BLOOD COUNT 8.5 10^3/uL (4.0-10.0)
[2018-11-06] MEDS: IPRATROPIUM 0.02% SOLN 0.5MG/2.5 ML NEB INH SCH ×2 (07:39→21:54)
[2018-11-06 07:54] LABS: BLOOD UREA NITROGEN 14 MG/DL (7-18); CALCIUM LEVEL 8.9 MG/DL (8.8-10.2); CARBON DIOXIDE LEVEL 29 MEQ/L (21-32); CHLORIDE LEVEL 102 MEQ/L (98-107); CREATININE FOR GFR 0.69 MG/DL (0.55-1.30); GLOMERULAR FILTRATION RATE > 60.0 (>39); GLUCOSE, FASTING 113 MG/DL (70-100); POTASSIUM SERUM 3.7 MEQ/L (3.5-5.1); SODIUM LEVEL 138 MEQ/L (136-145)
[2018-11-06] MEDS: DOCUSATE SODIUM 100 MG CAP PO SCH ×2 (08:46→21:04)
[2018-11-06] MEDS: HEPARIN SOD (PORCINE) 5000 UNITS/ML VIAL SQ SCH ×2 (08:46→21:05)
[2018-11-06] MEDS: FERROUS GLUCONATE 324 MG TAB PO SCH ×2 (08:46→21:05)
[2018-11-06] MEDS: LACTOBACILLUS ACIDOPHILUS CAP (BACID) PO SCH ×3 (08:46→17:35)
[2018-11-06] MEDS: guaiFENesin 200 MG TAB PO SCH ×3 (08:47→21:05)
[2018-11-06] MEDS: ACETAMINOPHEN 500 MG TAB PO SCH ×3 (08:47→21:06)
[2018-11-06] MEDS: levETIRAcetam 250MG TABLET (KEPPRA) PO SCH ×2 (08:47→21:05)
[2018-11-06] MEDS: ASCORBIC ACID 500 MG TAB PO SCH (08:48)
[2018-11-06] MEDS: FUROSEMIDE 40 MG TAB PO SCH (08:48)
[2018-11-06] MEDS: HumaLOG INSULIN (NovoLOG) PER UNIT SC SCH ×4 (08:48→20:48)
[2018-11-06] MEDS: CALCIUM/VITAMIN D 500 MG TAB PO SCH (08:48)
[2018-11-06] MEDS: ASPIRIN 81 MG CHEW TABLET PO SCH (08:48)
[2018-11-06] MEDS: LIDOCAINE 5% (LIDODERM) PATCH TD SCH (08:49)
[2018-11-06] MEDS: PANTOPRAZOLE 40MG TAB (PROTONIX) PO SCH ×2 (08:49→21:05)
[2018-11-06] MEDS: FOLIC ACID 1 MG TAB PO SCH (09:01)
[2018-11-06] MEDS: ANALGESIC BALM CRM 120 GM TOP SCH ×3 (09:02→21:08)
--- NOTE | 2018-11-06 12:07 | IPNPDOC ---
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 REVIEW OF SYSTEMS: The following is a completed review of systems and has been reviewed. Review of systems otherwise unremarkable. PAIN: Patient self reports no pain EYES: No recent vision changes EARS, NOSE, & THROAT: +dysphagia CARDIOVASCULAR: + chest pain (sternal wall pain, TTP)-resolved PULMONARY: Denies shortness of breath GASTROINTESTINAL: Denies constipation/diarrhea GENITOURINARY: +incontinence MUSCULOSKELETAL: LUE weakness NEUROLOGICAL:+ seizures, +LUE paresis and apraxia SKIN: abdominal incisions and sternal scar PSYCHIATRIC: agitated, but pleasant All other review of systems found to be negative. PHYSICAL EXAMINATION: VITAL SIGNS: Please see below. GENERAL: Pleasant and cooperative. No acute distress. mildly agitated HEENT: PERRL. Extraocular movements intact. Clear conjunctiva, left facial droop CARDIOVASCULAR: Regular rate and rhythm. No murmurs, rubs, or gallops, +TTP sternum LUNGS: Clear to auscultation bilaterally. No wheezes. No rhonchi, decreased breath sounds at bases (poor inspiratory effort) ABDOMEN: Soft, nontender, nondistended. Positive bowel sounds. Normal active bowel sounds NEUROLOGICAL: Alert and oriented to self and location, had difficulty following commands consistently, +apraxia Cranial nerves II through XII grossly intact except for left sided facial droop, extinction to touch on the left side, otherwise sensation intact to light touch EXTREMITIES: 5\\5 strength right upper extremities. 3/5 left elbow flexors/extensors, 2/5 child's nurse and wrist extension 5\\5 strength right lower extr emity. 4/5 strength in left lower extremity. SKIN: no sacral ulcers, sternal incision healing well, abdominal incisions with mild erythema ASSESSMENT:73 year-old F with past medical history of HTN, DM, CKD2 who presents status post abdominal aortic dissection repair complicated by right frontal infarct. 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 Neuro: s/p right frontal lobe infarct, c/u ASA and statin, maintain good BP control -CT head 10/26/18 for AMS with no acute changes-improving neurological status -c/u Prozac for motor recovery qHS -new onset GCT seizures, c/u lower dose Keppra 250 BID- Keppra level 25, will recheck and adjust prior to discharge 3. Cardio: s/p type A aortic dissection s/p repair on 10/04/18 with poorly controlled HTN with recent hypotensive episode at [facility] on 10/14, most BP meds held, was taking labetolol 100mg po TID c/u this regimen - f/u with cardiac surgeon -mild hyponatremia- c/u restrict to 1500cc and monitor- resolving 4. Resp: monitor for infection, encourage incentive spirometry, guaifenesin ordered and ipratropium -CT scan 10/27/18 shows persistent right pleural effusion, patient denies having worsening shortness of breath, c/u increased dose of Lasix 40mg daily, unless worsening symptoms will avoid any surgical interventions at this time-stable -CXR no infiltrate 5. Endo: pmh hypothyroidism, c/u Synthroid DM- c/u insulin coverage, and c/u to hold metformin 6. : Ucx positive for E. Coli s/p 10 day course of Cefdinir 6. DVT ppx: heparin and TEDs 7. GI ppx: protonix BID 7. Pain: will change Tylenol to standing, c/u Lidoderm patch to sternum for chest wall/incisional pain 9. Psych:c/u prozac qHS, avoid stimulants given her recent cardiac surgery and new onset seizures 10. ID: leukocytosis resolved, will consider alerting cardiac surgeon to loculated substernal fluid seen on recent CT if leukocytosis returns-stable 8. Dispo: 11/12/18 to home, progressing towards goals Allergies Coded Allergies: morphine (Verified Adverse Reaction, Mild, 10/18/18) "facial flushing" Vital Signs Vital Signs Date Time Temp Pulse Resp B/P (MAP) Pulse Ox O2 Delivery O2 Flow Rate FiO2 11/06/18 06:00 98.1 92 18 95 11/06/18 05:59 160/98 Laboratory Data CBC/BMP Laboratory Tests 11/06/18 06:54 Red Blood Count 3.84 L, Mean Corpuscular Volume 91.7, Mean Corpuscular Hemo globin 29.2, Mean Corpuscular Hemoglobin Concent 31.8 L, Red Cell Distribution Width 17.2 H, Neutrophils (%) (Auto) 72.1 H, Lymphocytes (%) (Auto) 15.9 L, Monocytes (%) (Auto) 7.1 H, Eosinophils (%) (Auto) 2.9, Basophils (%) (Auto) 1.1 H, Neutrophils # (Auto) 6.1, Lymphocytes # (Auto) 1.4 L, Monocytes # (Auto) 0.6, Eosinophils # (Auto) 0.3, Basophils # (Auto) 0.1, Calcium Level 8.9 Labs 24H Laboratory Tests 2 11/05/18 16:59: Bedside Glucose (Misc Panel) 131H 11/05/18 19:37: Bedside Glucose (Misc Panel) 221H 11/06/18 06:54: Immature Granulocyte % (Auto) 0.9, White Blood Count 8.5, Red Blood Count 3.84L, Hemoglobin 11.2L, Hematocrit 35.2L, Mean Corpuscular Volume 91.7, Mean Corpuscular Hemoglobin 29.2, Mean Corpuscular Hemoglobin Concent 31.8L, Red Cell Distribution Width 17.2H, Platelet Count 426, Neutrophils (%) (Auto) 72.1H, Lymphocytes (%) (Auto) 15.9L, Monocytes (%) (Auto) 7.1H, Eosinophils (%) (Auto) 2.9, Basophils (%) (Auto) 1.1H, Neutrophils # (Auto) 6.1, Lymphocytes # (Auto) 1.4L, Monocytes # (Auto) 0.6, Eosinophils # (Auto) 0.3, Basophils # (Auto) 0.1, Nucleated Red Blood Cells % (auto) 0.0, Anion Gap 7L, Glomerular Filtration Rate > 60.0, Blood Urea Nitrogen 14, Creatinine 0.69, Sodium Level 138, Potassium Level 3.7, Chloride Level 102, Carbon Dioxide Level 29, Calcium Level 8.9 11/06/18 11:41: Bedside Glucose (Misc Panel) 113H Current Medications Current Medications Current Medications Medications (Trade) Dose Ordered Sig/Chirag Route PRN Reason Start Time Stop Time Status Last Admin Dose Admin Acetaminophen (Tylenol Tab) 650 mg Q4HP PRN PO MILD PAIN (PS 1-4) 10/18/18 16:30 10/31/18 11:24 DC 10/31/18 07:50 Acetaminophen (Tylenol Tab) 1,000 mg TID PO 10/31/18 16:00 11/06/18 08:47 Ascorbic Acid (Vitamin C) 500 mg DAILY PO 10/19/18 09:00 11/06/18 08:48 Aspirin (Aspirin Chewable) 81 mg DAILY PO 10/19/18 09:00 11/06/18 08:48 Bisacodyl (Dulcolax Suppository) 10 mg DAILYPRN PRN [place] CONSTIPATION 10/18/18 16:30 Calcium/Vitamin D (Oscal D) 500 mg DAILY PO 10/19/18 09:00 11/06/18 08:48 Cefdinir (Omnicef) 300 mg BID PO 10/19/18 21:00 10/26/18 09:01 DC 10/26/18 08:59 Cefdinir (Omnicef) 300 mg BID PO 10/26/18 14:00 10/27/18 10:59 DC 10/27/18 10:19 Dextrose (Dextrose 50%) 25 ml ASDIRECTED PRN IV SEE LABEL COMMENTS 10/18/18 16:30 Docusate Sodium (Colace) 100 mg BID PO 10/18/18 21:00 11/06/18 08:46 Ferrous Gluconate (Fergon) 324 mg BID PO 10/18/18 21:00 11/06/18 08:46 Fluoxetine HCl (PROzac) 20 mg DAILY PO 10/19/18 09:00 10/24/18 11:52 DC 10/24/18 08:30 Fluoxetine HCl (PROzac) 20 mg QHS PO 10/25/18 21:00 11/05/18 20:21 Folic Acid (Folic Acid) 1 mg DAILY PO 10/19/18 09:00 11/06/18 09:01 Furosemide (Lasix) 20 mg DAILY PO 10/19/18 09:00 10/27/18 10:59 DC 10/26/18 08:57 Furosemide (Lasix) 40 mg DAILY PO 10/28/18 09:00 11/06/18 08:48 Glucagon (Glucagon) 1 mg ASDIRECTED PRN SC SEE LABEL COMMENTS 10/18/18 16:30 Glucose (Glucose) 16 GM ASDIRECTED PRN PO SEE LABEL COMMENTS 10/18/18 16:30 Guaifenesin (Robitussin Tab) 400 mg TID PO 10/22/18 16:15 11/06/18 08:47 Heparin Sodium (Porcine) (Heparin) 5,000 units Q12H SQ 10/18/18 21:00 11/06/18 08:46 Home Med (Med Rec Complete!) ASDIRECTED XX 10/18/18 17:30 10/18/18 17:30 DC Insulin Detemir (Levemir Insulin) 10 units QHS SC 10/18/18 21:00 11/05/18 20:20 Insulin Human Lispro (HumaLOG INSULIN) SEE PROTOCOL TABLE AC SC 10/18/18 17:30 11/06/18 08:48 Insulin Human Lispro (HumaLOG INSULIN) SEE PROTOCOL TABLE QHS PR 10/18/18 21:00 10/21/18 20:42 Ipratropium [place] (Atrovent 0.02%) 0.5 mg RBID INH 10/22/18 20:00 11/05/18 20:51 Labetalol HCl (Normodyne, Trandate) 50 mg BID PO 10/18/18 21:00 10/19/18 07:40 DC 10/18/18 21:07 Labetalol HCl (Normodyne, Trandate) 50 mg Q8H PO 10/21/18 14:00 10/26/18 13:53 DC 10/26/18 05:45 Labetalol HCl (Normodyne, Trandate) 50 mg TID PO 10/18/18 21:00 10/18/18 21:00 DC Labetalol HCl (Normodyne, Trandate) 50 mg TID PO 10/19/18 09:00 10/21/18 14:36 DC 10/21/18 09:23 Labetalol HCl (Normodyne, Trandate) 100 mg Q8H PO 10/26/18 14:00 11/06/18 05:59 Lactobacillus Acidophilus (Bacid) 1 ea WM PO 10/19/18 18:00 11/06/18 08:46 Levetiracetam (Keppra) 250 mg BID PO 10/30/18 09:00 11/06/18 08:47 Levetiracetam (Keppra) 750 mg BID PO 10/29/18 21:00 10/29/18 21:00 DC Levetiracetam (Keppra) 1,000 mg BID PO 10/18/18 21:00 10/29/18 16:23 DC 10/29/18 09:11 Levothyroxine Sodium (Synthroid) 75 mcg DAILY@06 PO 10/19/18 06:00 11/06/18 05:59 Lidocaine (Lidoderm Patch) 1 patch DAILY TD 10/31/18 12:00 10/31/18 16:25 DC 10/31/18 12:26 Lidocaine (Lidoderm Patch) 2 patch DAILY TD 11/01/18 09:00 11/06/18 08:49 Magnesium Hydroxide (Milk Of Magnesia) 30 ml DAILYPRN PRN PO CONSTIPATION 10/18/18 16:30 Menthol/Methyl Salicylate (Bengay Cream) apply to posterior ... TID TOP 10/25/18 09:00 11/06/18 09:02 Miscellaneous (Unresolved Clarification Entry) SEE LABEL COMMENTS DAILY XX 10/25/18 09:00 10/26/18 09:10 DC Miscellaneous (Unresolved Clarification Entry) SEE LABEL COMMENTS DAILY XX 11/04/18 09:00 11/05/18 06:13 DC Miscellaneous (Unresolved Clarification Entry) SEE LABEL COMMENTS DAILY XX 11/05/18 09:00 11/05/18 14:51 DC Non-Formulary Medication ( See Comment Field Below ) REMOVE LIDODERM PATCH DAILY@21 XX 10/31/18 21:00 10/31/18 21:00 DC Non-Formulary Medication ( See Comment Field Below ) REMOVE LIDODERM PATCH DAILY@21 XX 10/31/18 21:00 11/05/18 21:43 Ondansetron HCl (Zofran) 4 mg Q6HP PRN PO NAUSEA OR VOMITING 11/02/18 11:00 11/02/18 12:53 Pantoprazole Sodium (Protonix) 40 mg BID PO 10/18/18 21:00 11/06/18 08:49 Pantoprazole Sodium (Protonix) 40 mg QHS PO 10/18/18 21:00 10/18/18 21:00 DC Rosuvastatin Calcium (Crestor) 20 mg QHS PO 10/18/18 21:00 11/05/18 20:21 Senna (Senokot) 1 tab QHS PO 10/18/18 21:00 11/05/18 20:20 Trazodone HCl (Desyrel) 25 mg Q6HP PRN PO AGITATION 10/18/18 16:30 10/24/18 11:53 DC 10/19/18 03:07 Trazodone HCl (Desyrel) 25 mg QHS PO 10/21/18 21:00 10/24/18 11:53 DC 10/23/18 20:30 Trazodone HCl (Desyrel) 25 mg QHS PO 10/28/18 21:00 11/05/18 20:22 Trazodone HCl (Desyrel) 50 mg QHS PO 10/18/18 21:00 10/21/18 14:38 DC 10/20/18 20:19 CHRIS CORDON MD Nov 06, 2018 12:07
[2018-11-06 14:00] VITALS: BP 129/73
[2018-11-06 20:00] VITALS: BP 104/59
[2018-11-06] MEDS: FLUoxetine 20 MG CAP PO SCH (21:04)
[2018-11-06] MEDS: ROSUVASTATIN 10 MG TAB (CRESTOR) PO SCH (21:04)
[2018-11-06] MEDS: SENNA 8.6 MG TAB (SENOKOT) PO SCH (21:04)
[2018-11-06] MEDS: traZODone 25MG PER 1/2 TABLET PO SCH (21:05)
[2018-11-06] MEDS: LEVEMIR (INSULIN DETEMIR) 1 UNITS/0.01ML SC SCH (21:05)
[2018-11-06] MEDS: **NOTE PATIENT COMMENT** MISC XX SCH (21:15)
[2018-11-07 04:00] VITALS: BP 159/89
[2018-11-07] MEDS: LEVOTHYROXINE 75MCG TABLET (0.075MG) PO SCH (06:02)
[2018-11-07] MEDS: LABETALOL 100 MG TAB PO SCH ×3 (06:02→21:47)
[2018-11-07] MEDS: IPRATROPIUM 0.02% SOLN 0.5MG/2.5 ML NEB INH SCH ×2 (07:57→20:00)
[2018-11-07] MEDS: HumaLOG INSULIN (NovoLOG) PER UNIT SC SCH ×4 (08:59→21:00)
[2018-11-07] MEDS: ACETAMINOPHEN 500 MG TAB PO SCH ×3 (09:00→21:47)
[2018-11-07] MEDS: guaiFENesin 200 MG TAB PO SCH ×3 (09:00→21:46)
[2018-11-07] MEDS: FERROUS GLUCONATE 324 MG TAB PO SCH ×2 (09:00→21:46)
[2018-11-07] MEDS: ASPIRIN 81 MG CHEW TABLET PO SCH (09:00)
[2018-11-07] MEDS: DOCUSATE SODIUM 100 MG CAP PO SCH ×2 (09:00→21:46)
[2018-11-07] MEDS: LACTOBACILLUS ACIDOPHILUS CAP (BACID) PO SCH ×3 (09:00→17:16)
[2018-11-07] MEDS: PANTOPRAZOLE 40MG TAB (PROTONIX) PO SCH ×2 (09:00→21:46)
[2018-11-07] MEDS: levETIRAcetam 250MG TABLET (KEPPRA) PO SCH ×2 (09:00→21:46)
[2018-11-07] MEDS: FOLIC ACID 1 MG TAB PO SCH (09:00)
[2018-11-07] MEDS: FUROSEMIDE 40 MG TAB PO SCH (09:01)
[2018-11-07] MEDS: ASCORBIC ACID 500 MG TAB PO SCH (09:01)
[2018-11-07] MEDS: HEPARIN SOD (PORCINE) 5000 UNITS/ML VIAL SQ SCH ×2 (09:01→21:47)
[2018-11-07] MEDS: CALCIUM/VITAMIN D 500 MG TAB PO SCH (09:01)
[2018-11-07] MEDS: ANALGESIC BALM CRM 120 GM TOP SCH ×3 (09:02→21:49)
[2018-11-07] MEDS: LIDOCAINE 5% (LIDODERM) PATCH TD SCH (09:02)
--- NOTE | 2018-11-07 09:43 | IPNPDOC ---
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 This morning she says she feels more like herself, however was reflecting on her difficult marriage and is looking forward to living away from her who she believes has been emotionally distant for years. REVIEW OF SYSTEMS: The following is a completed review of systems and has been reviewed. Review of systems otherwise unremarkable. PAIN: Patient self reports no pain EYES: No recent vision changes EARS, NOSE, & THROAT: +dysphagia CARDIOVASCULAR: + chest pain (sternal wall pain, TTP)-resolved PULMONARY: Denies shortness of breath GASTROINTESTINAL: Denies constipation/diarrhea GENITOURINARY: +incontinence MUSCULOSKELETAL: LUE weakness NEUROLOGICAL:+ seizures, +LUE paresis and apraxia SKIN: abdominal incisions and sternal scar PSYCHIATRIC: agitated, but pleasant All other review of systems found to be negative. PHYSICAL EXAMINATION: VITAL SIGNS: Please see below. GENERAL: Pleasant and cooperative. No acute distress. mildly agitated HEENT: PERRL. Extraocular movements intact. Clear conjunctiva, left facial droop CARDIOVASCULAR: Regular rate and rhythm. No murmurs, rubs, or gallops, +TTP sternum LUNGS: Clear to auscultation bilaterally. No wheezes. No rhonchi, decreased breath sounds at bases (poor inspiratory effort) ABDOMEN: Soft, nontender, nondistended. Positive bowel sounds. Normal active bowel sounds NEUROLOGICAL: Alert and oriented to self and location, had difficulty following commands consistently, +apraxia Cranial nerves II through XII grossly intact except for left sided facial droop, extinction to touch on the left side, otherwise sensation intact to light touch EXTREMITIES: 5\\5 strength right upper extremities. 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 4/5 strength in left lower extremity. SKIN: no sacral ulcers, sternal incision healing well, abdominal incisions with mild erythema ASSESSMENT:73 year-old F with past medical history of HTN, DM, CKD2 who presents status post abdominal aortic dissection repair complicated by right frontal infarct. 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 Neuro: s/p right frontal lobe infarct, c/u ASA and statin, maintain good BP control -CT head 10/26/18 for AMS with no acute changes-improving neurological status -c/u Prozac for motor recovery qHS -new onset GCT seizures, c/u lower dose Keppra 250 BID- Keppra level 25, will recheck and adjust prior to discharge-levels pending 3. Cardio: s/p type A aortic dissection s/p repair on 10/04/18 with poorly controlled HTN with recent hypotensive episode at [facility] on 10/14, most BP meds held, was taking labetolol 100mg po TID c/u this regimen - f/u with cardiac surgeon -mild hyponatremia- c/u restrict to 1500cc and monitor- resolving 4. Resp: monitor for infection, encourage incentive spirometry, guaifenesin ordered and ipratropium -CT scan 10/27/18 shows persistent right pleural effusion, patient denies having worsening shortness of breath, c/u increased dose of Lasix 40mg daily, unless worsening symptoms will avoid any surgical interventions at this time-stable -CXR no infiltrate 5. Endo: pmh hypothyroidism, c/u Synthroid DM- c/u insulin coverage, and c/u to hold metformin 6. : Ucx positive for E. Coli s/p 10 day course of Cefdinir 6. DVT ppx: heparin and TEDs 7. GI ppx: protonix BID 7. Pain: will change Tylenol to standing, c/u Lidoderm patch to sternum for chest wall/incisional pain 9. Psych:c/u prozac qHS, avoid stimulants given her recent cardiac surgery and new onset seizures 10. ID: leukocytosis resolved, will consider alerting cardiac surgeon to loculated substernal fluid seen on recent CT if leukocytosis returns-stable 8. Dispo: 11/12/18 to home, progressing towards goals Allergies Coded Allergies: morphine (Verified Adverse Reaction, Mild, 10/18/18) "facial flushing" Vital Signs Vital Signs Date Time Temp Pulse Resp B/P (MAP) Pulse Ox O2 Delivery O2 Flow Rate FiO2 11/07/18 06:02 83 159/89 11/07/18 04:00 99.6 17 99 Laboratory Data Labs 24H Laboratory Tests 2 11/06/18 11:41: Bedside Glucose (Misc Panel) 113H 11/06/18 16:46: Bedside Glucose (Misc Panel) 177H 11/06/18 20:16: Bedside Glucose (Misc Panel) 198H 11/07/18 06:17: Bedside Glucose (Misc Panel) 89 Current Medications Current Medications Current Medications Medications (Trade) Dose Ordered Sig/Chirag Route PRN Reason Start Time Stop Time Status Last Admin Dose Admin Acetaminophen (Tylenol Tab) 650 mg Q4HP PRN PO MILD PAIN (PS 1-4) 10/18/18 16:30 10/31/18 11:24 DC 10/31/18 07:50 Acetaminophen (Tylenol Tab) 1,000 mg TID PO 10/31/18 16:00 11/07/18 09:00 Ascorbic Acid (Vitamin C) 500 mg DAILY PO 10/19/18 09:00 11/07/18 09:01 Aspirin (Aspirin Chewable) 81 mg DAILY PO 10/19/18 09:00 11/07/18 09:00 Bisacodyl (Dulcolax Suppository) 10 mg DAILYPRN PRN [place] CONSTIPATION 10/18/18 16:30 Calcium/Vitamin D (Oscal D) 500 mg DAILY PO 10/19/18 09:00 11/07/18 09:01 Cefdinir (Omnicef) 300 mg BID PO 10/19/18 21:00 10/26/18 09:01 DC 10/26/18 08:59 Cefdinir (Omnicef) 300 mg BID PO 10/26/18 14:00 10/27/18 10:59 DC 10/27/18 10:19 Dextrose (Dextrose 50%) 25 ml ASDIRECTED PRN IV SEE LABEL COMMENTS 10/18/18 16:30 Docusate Sodium (Colace) 100 mg BID PO 10/18/18 21:00 11/07/18 09:00 Ferrous Gluconate (Fergon) 324 mg BID PO 10/18/18 21:00 11/07/18 09:00 Fluoxetine HCl (PROzac) 20 mg DAILY PO 10/19/18 09:00 10/24/18 11:52 DC 10/24/18 08:30 Fluoxetine HCl (PROzac) 20 mg QHS PO 10/25/18 21:00 11/06/18 21:04 Folic Acid (Folic Acid) 1 mg DAILY PO 10/19/18 09:00 11/07/18 09:00 Furosemide (Lasix) 20 mg DAILY PO 10/19/18 09:00 10/27/18 10:59 DC 10/26/18 08:57 Furosemide (Lasix) 40 mg DAILY PO 10/28/18 09:00 11/07/18 09:01 Glucagon (Glucagon) 1 mg ASDIRECTED PRN SC SEE LABEL COMMENTS 10/18/18 16:30 Glucose (Glucose) 16 GM ASDIRECTED PRN PO SEE LABEL COMMENTS 10/18/18 16:30 Guaifenesin (Robitussin Tab) 400 mg TID PO 10/22/18 16:15 11/07/18 09:00 Heparin Sodium (Porcine) (Heparin) 5,000 units Q12H SQ 10/18/18 21:00 11/07/18 09:01 Home Med (Med Rec Complete!) ASDIRECTED XX 10/18/18 17:30 10/18/18 17:30 DC Insulin Detemir (Levemir Insulin) 10 units QHS SC 10/18/18 21:00 11/06/18 21:05 Insulin Human Lispro (HumaLOG INSULIN) SEE PROTOCOL TABLE AC SC 10/18/18 17:30 11/06/18 16:54 Insulin Human Lispro (HumaLOG INSULIN) SEE PROTOCOL TABLE QHS SC 10/18/18 21:00 10/21/18 20:42 Ipratropium [place] (Atrovent 0.02%) 0.5 mg RBID INH 10/22/18 20:00 11/05/18 20:51 Labetalol HCl (Normodyne, Trandate) 50 mg BID PO 10/18/18 21:00 10/19/18 07:40 DC 10/18/18 21:07 Labetalol HCl (Normodyne, Trandate) 50 mg Q8H PO 10/21/18 14:00 10/26/18 13:53 DC 10/26/18 05:45 Labetalol HCl (Normodyne, Trandate) 50 mg TID PO 10/18/18 21:00 10/18/18 21:00 DC Labetalol HCl (Normodyne, Trandate) 50 mg TID PO 10/19/18 09:00 10/21/18 14:36 DC 10/21/18 09:23 Labetalol HCl (Normodyne, Trandate) 100 mg Q8H PO 10/26/18 14:00 11/07/18 06:02 Lactobacillus Acidophilus (Bacid) 1 ea WM PO 10/19/18 18:00 11/07/18 09:00 Levetiracetam (Keppra) 250 mg BID PO 10/30/18 09:00 11/07/18 09:00 Levetiracetam (Keppra) 750 mg BID PO 10/29/18 21:00 10/29/18 21:00 DC Levetiracetam (Keppra) 1,000 mg BID PO 10/18/18 21:00 10/29/18 16:23 DC 10/29/18 09:11 Levothyroxine Sodium (Synthroid) 75 mcg DAILY@06 PO 10/19/18 06:00 11/07/18 06:02 Lidocaine (Lidoderm Patch) 1 patch DAILY TD 10/31/18 12:00 10/31/18 16:25 DC 10/31/18 12:26 Lidocaine (Lidoderm Patch) 2 patch DAILY TD 11/01/18 09:00 11/07/18 09:02 Magnesium Hydroxide (Milk Of Magnesia) 30 ml DAILYPRN PRN PO CONSTIPATION 10/18/18 16:30 Menthol/Methyl Salicylate (Bengay Cream) apply to posterior ... TID TOP 10/25/18 09:00 11/07/18 09:02 Miscellaneous (Unresolved Clarification Entry) SEE LABEL COMMENTS DAILY XX 10/25/18 09:00 10/26/18 09:10 DC Miscellaneous (Unresolved Clarification Entry) SEE LABEL COMMENTS DAILY XX 11/04/18 09:00 11/05/18 06:13 DC Miscellaneous (Unresolved Clarification Entry) SEE LABEL COMMENTS DAILY XX 11/05/18 09:00 11/05/18 14:51 DC Non-Formulary Medication ( See Comment Field Below ) REMOVE LIDODERM PATCH DAILY@21 XX 10/31/18 21:00 10/31/18 21:00 DC Non-Formulary Medication ( See Comment Field Below ) REMOVE LIDODERM PATCH DAILY@21 XX 10/31/18 21:00 11/06/18 21:15 Ondansetron HCl (Zofran) 4 mg Q6HP PRN PO NAUSEA OR VOMITING 11/02/18 11:00 11/02/18 12:53 Pantoprazole Sodium (Protonix) 40 mg BID PO 10/18/18 21:00 11/07/18 09:00 Pantoprazole Sodium (Protonix) 40 mg QHS PO 10/18/18 21:00 10/18/18 21:00 DC Rosuvastatin Calcium (Crestor) 20 mg QHS PO 10/18/18 21:00 11/06/18 21:04 Senna (Senokot) 1 tab QHS PO 10/18/18 21:00 11/06/18 21:04 Trazodone HCl (Desyrel) 25 mg Q6HP PRN PO AGITATION 10/18/18 16:30 10/24/18 11:53 DC 10/19/18 03:07 Trazodone HCl (Desyrel) 25 mg QHS PO 10/21/18 21:00 10/24/18 11:53 DC 10/23/18 20:30 Trazodone HCl (Desyrel) 25 mg QHS PO 10/28/18 21:00 11/06/18 21:05 Trazodone HCl (Desyrel) 50 mg QHS PO 10/18/18 21:00 10/21/18 14:38 DC 10/20/18 20:19 CHRIS CORDON MD Nov 07, 2018 09:43
[2018-11-07 14:00] VITALS: BP 109/60
[2018-11-07 21:26] VITALS: BP 137/82
[2018-11-07] MEDS: traZODone 25MG PER 1/2 TABLET PO SCH (21:46)
[2018-11-07] MEDS: ROSUVASTATIN 10 MG TAB (CRESTOR) PO SCH (21:46)
[2018-11-07] MEDS: FLUoxetine 20 MG CAP PO SCH (21:46)
[2018-11-07] MEDS: SENNA 8.6 MG TAB (SENOKOT) PO SCH (21:47)
[2018-11-07] MEDS: **NOTE PATIENT COMMENT** MISC XX SCH (21:48)
[2018-11-07] MEDS: LEVEMIR (INSULIN DETEMIR) 1 UNITS/0.01ML SC SCH (21:48)
[2018-11-08 05:54] VITALS: BP 150/79
[2018-11-08] MEDS: LEVOTHYROXINE 75MCG TABLET (0.075MG) PO SCH (05:55)
[2018-11-08] MEDS: LABETALOL 100 MG TAB PO SCH ×3 (05:55→21:45)
[2018-11-08] MEDS: HumaLOG INSULIN (NovoLOG) PER UNIT SC SCH ×4 (07:30→21:00)
[2018-11-08] MEDS: IPRATROPIUM 0.02% SOLN 0.5MG/2.5 ML NEB INH SCH ×2 (08:00→19:38)
[2018-11-08] MEDS: levETIRAcetam 250MG TABLET (KEPPRA) PO SCH ×2 (09:49→21:44)
[2018-11-08] MEDS: FOLIC ACID 1 MG TAB PO SCH (09:49)
[2018-11-08] MEDS: LIDOCAINE 5% (LIDODERM) PATCH TD SCH (09:49)
[2018-11-08] MEDS: FUROSEMIDE 40 MG TAB PO SCH (09:50)
[2018-11-08] MEDS: ACETAMINOPHEN 500 MG TAB PO SCH ×3 (09:50→21:44)
[2018-11-08] MEDS: ASPIRIN 81 MG CHEW TABLET PO SCH (09:50)
[2018-11-08] MEDS: FERROUS GLUCONATE 324 MG TAB PO SCH ×2 (09:50→21:45)
[2018-11-08] MEDS: CALCIUM/VITAMIN D 500 MG TAB PO SCH (09:50)
[2018-11-08] MEDS: DOCUSATE SODIUM 100 MG CAP PO SCH ×2 (09:50→21:45)
[2018-11-08] MEDS: PANTOPRAZOLE 40MG TAB (PROTONIX) PO SCH ×2 (09:50→21:45)
[2018-11-08] MEDS: LACTOBACILLUS ACIDOPHILUS CAP (BACID) PO SCH ×3 (09:50→17:22)
[2018-11-08] MEDS: guaiFENesin 200 MG TAB PO SCH ×3 (09:50→21:44)
[2018-11-08] MEDS: HEPARIN SOD (PORCINE) 5000 UNITS/ML VIAL SQ SCH ×2 (09:51→21:49)
[2018-11-08] MEDS: ASCORBIC ACID 500 MG TAB PO SCH (09:51)
[2018-11-08] MEDS: ANALGESIC BALM CRM 120 GM TOP SCH ×3 (09:51→21:49)
--- NOTE | 2018-11-08 12:05 | IPNPDOC ---
PM&R Progress Note DATE OF SERVICE: Nov 08, 2018 Communicable Disease Specialist Progress Note Subjective: Patient seen in her room stating she slept well, has no pain, and is wondering if her [id number] has gotten her new housing ready. REVIEW OF SYSTEMS: The following is a completed review of systems and has been reviewed. Review of systems otherwise unremarkable. PAIN: Patient self reports no pain EYES: No recent vision changes EARS, NOSE, & THROAT: +dysphagia CARDIOVASCULAR: + chest pain (sternal wall pain, TTP)-resolved PULMONARY: Denies shortness of breath GASTROINTESTINAL: Denies constipation/diarrhea GENITOURINARY: +incontinence MUSCULOSKELETAL: LUE weakness NEUROLOGICAL:+ seizures, +LUE paresis and apraxia SKIN: abdominal incisions and sternal scar PSYCHIATRIC: agitated, but pleasant All other review of systems found to be negative. PHYSICAL EXAMINATION: VITAL SIGNS: Please see below. GENERAL: Pleasant and cooperative. No acute distress. mildly agitated HEENT: PERRL. Extraocular movements intact. Clear conjunctiva, left facial droop CARDIOVASCULAR: Regular rate and rhythm. No murmurs, rubs, or gallops, +TTP sternum LUNGS: Clear to auscultation bilaterally. No wheezes. No rhonchi, decreased breath sounds at bases (poor inspiratory effort) ABDOMEN: Soft, nontender, nondistended. Positive bowel sounds. Normal active bowel sounds NEUROLOGICAL: Alert and oriented to self and location, had difficulty following commands consistently, +apraxia Cranial nerves II through XII grossly intact except for left sided facial droop, extinction to touch on the left side, otherwise sensation intact to light touch EXTREMITIES: 5\\5 strength right upper extremities. 3/5 left elbow flexors/extensors, 2/5 director of research and wrist extension 5\\5 strength right lower extremity. 4/5 strength in left lower extremity. SKIN: no sacral ulcers, sternal incision healing well, abdominal incisions with mild erythema ASSESSMENT:73 year-old F with past medical history of HTN, DM, CKD2 who presen ts status post abdominal aortic dissection repair complicated by right frontal infarct. 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 Neuro: s/p right frontal lobe infarct, c/u ASA and statin, maintain good BP control -CT head 10/26/18 for AMS with no acute changes-improving neurological status -c/u Prozac for motor recovery qHS -new onset GCT seizures, Keppra level 11/06/18 at 10 , will increase to 500 BID and needs to f/u with neurology upon discharge for levels to be rechecked 3. Cardio: s/p type A aortic dissection s/p repair on 10/04/18 with poorly controlled HTN with recent hypotensive episode at [facility] on 10/14, most BP meds held, was taking labetolol 100mg po TID c/u this regimen - f/u with cardiac surgeon -mild hyponatremia- c/u restrict to 1500cc and monitor- resolving 4. Resp: monitor for infection, encourage incentive spirometry, guaifenesin ordered and ipratropium -CT scan 10/27/18 shows persistent right pleural effusion, patient denies having worsening shortness of breath, c/u increased dose of Lasix 40mg daily, unless worsening symptoms will avoid any surgical interventions at this time-stable -CXR no infiltrate 5. Endo: pmh hypothyroidism, c/u Synthroid DM- c/u insulin coverage, and c/u to hold metformin 6. : Ucx positive for E. Coli s/p 10 day course of Cefdinir 6. DVT ppx: heparin and TEDs 7. GI ppx: protonix BID 7. Pain: will change Tylenol to standing, c/u Lidoderm patch to sternum for chest wall/incisional pain 9. Psych:c/u prozac qHS, avoid stimulants given her recent cardiac surgery and new onset seizures 10. ID: leukocytosis resolved, will consider alerting cardiac surgeon to loculated substernal fluid seen on recent CT if leukocytosis returns-stable 8. Dispo: 11/12/18 to home, progressing towards goals Allergies Coded Allergies: morphine (Verified Adverse Reaction, Mild, 10/18/18) "facial flushing" Vital Signs Vital Signs Date Time Temp Pulse Resp B/P (MAP) Pulse Ox O2 Delivery O2 Flow Rate FiO2 11/08/18 05:55 87 150/79 11/08/18 05:54 97.7 18 93 Laboratory Data Labs 24H Laboratory Tests 2 11/07/18 16:51: Bedside Glucose (Misc Panel) 164H 11/07/18 20:22: Bedside Glucose (Misc Panel) 238H 11/08/18 06:15: Bedside Glucose (Misc Panel) 99 11/08/18 11:33: Bedside Glucose (Misc Panel) 128H Current Medications Current Medications Current Medications Medications (Trade) Dose Ordered Sig/Chirag Route PRN Reason Start Time Stop Time Status Last Admin Dose Admin Acetaminophen (Tylenol Tab) 650 mg Q4HP PRN PO MILD PAIN (PS 1-4) 10/18/18 16:30 10/31/18 11:24 DC 10/31/18 07:50 Acetaminophen (Tylenol Tab) 1,000 mg TID PO 10/31/18 16:00 11/08/18 09:50 Ascorbic Acid (Vitamin C) 500 mg DAILY PO 10/19/18 09:00 11/08/18 09:51 Aspirin (Aspirin Chewable) 81 mg DAILY PO 10/19/18 09:00 11/08/18 09:50 Bisacodyl (Dulcolax Suppository) 10 mg DAILYPRN PRN [place] CONSTIPATION 10/18/18 16:30 Calcium/Vitamin D (Oscal D) 500 mg DAILY PO 10/19/18 09:00 11/08/18 09:50 Cefdinir (Omnicef) 300 mg BID PO 10/19/18 21:00 10/26/18 09:01 DC 10/26/18 08:59 Cefdinir (Omnicef) 300 mg BID PO 10/26/18 14:00 10/27/18 10:59 DC 10/27/18 10:19 Dextrose (Dextrose 50%) 25 ml ASDIRECTED PRN IV SEE LABEL COMMENTS 10/18/18 16:30 Docusate Sodium (Colace) 100 mg BID PO 10/18/18 21:00 11/08/18 09:50 Ferrous Gluconate (Fergon) 324 mg BID PO 10/18/18 21:00 11/08/18 09:50 Fluoxetine HCl (PROzac) 20 mg DAILY PO 10/19/18 09:00 10/24/18 11:52 DC 10/24/18 08:30 Fluoxetine HCl (PROzac) 20 mg QHS PO 10/25/18 21:00 11/07/18 21:46 Folic Acid (Folic Acid) 1 mg DAILY PO 10/19/18 09:00 11/08/18 09:49 Furosemide (Lasix) 20 mg DAILY PO 10/19/18 09:00 10/27/18 10:59 DC 10/26/18 08:57 Furosemide (Lasix) 40 mg DAILY PO 10/28/18 09:00 11/08/18 09:50 Glucagon (Glucagon) 1 mg ASDIRECTED PRN SC SEE LABEL COMMENTS 10/18/18 16:30 Glucose (Glucose) 16 GM ASDIRECTED PRN PO SEE LABEL COMMENTS 10/18/18 16:30 Guaifenesin (Robitussin Tab) 400 mg TID PO 10/22/18 16:15 11/08/18 09:50 Heparin Sodium (Porcine) (Heparin) 5,000 units Q12H SQ 10/18/18 21:00 11/08/18 09:51 Home Med (Med Rec Complete!) ASDIRECTED XX 10/18/18 17:30 10/18/18 17:30 DC Insulin Detemir (Levemir Insulin) 10 units QHS OR 10/18/18 21:00 11/07/18 21:48 Insulin Human Lispro (HumaLOG INSULIN) SEE PROTOCOL TABLE AC OR 10/18/18 17:30 11/07/18 17:16 Insulin Human Lispro (HumaLOG INSULIN) SEE PROTOCOL TABLE QHS OR 10/18/18 21:00 10/21/18 20:42 Ipratropium [place] (Atrovent 0.02%) 0.5 mg RBID INH 10/22/18 20:00 11/05/18 20:51 Labetalol HCl (Normodyne, Trandate) 50 mg BID PO 10/18/18 21:00 10/19/18 07:40 DC 10/18/18 21:07 Labetalol HCl (Normodyne, Trandate) 50 mg Q8H PO 10/21/18 14:00 10/26/18 13:53 DC 10/26/18 05:45 Labetalol HCl (Normodyne, Trandate) 50 mg TID PO 10/18/18 21:00 10/18/18 21:00 DC Labetalol HCl (Normodyne, Trandate) 50 mg TID PO 10/19/18 09:00 10/21/18 14:36 DC 10/21/18 09:23 Labetalol HCl (Normodyne, Trandate) 100 mg Q8H PO 10/26/18 14:00 11/08/18 05:55 Lactobacillus Acidophilus (Bacid) 1 ea WM PO 10/19/18 18:00 11/08/18 09:50 Levetiracetam (Keppra) 250 mg BID PO 10/30/18 09:00 11/08/18 09:59 DC 11/08/18 09:49 Levetiracetam (Keppra) 500 mg BID PO 11/08/18 21:00 Levetiracetam (Keppra) 750 mg BID PO 10/29/18 21:00 10/29/18 21:00 DC Levetiracetam (Keppra) 1,000 mg BID PO 10/18/18 21:00 10/29/18 16:23 DC 10/29/18 09:11 Levothyroxine Sodium (Synthroid) 75 mcg DAILY@06 PO 10/19/18 06:00 11/08/18 05:55 Lidocaine (Lidoderm Patch) 1 patch DAILY TD 10/31/18 12:00 10/31/18 16:25 DC 10/31/18 12:26 Lidocaine (Lidoderm Patch) 2 patch DAILY TD 11/01/18 09:00 11/08/18 09:49 Magnesium Hydroxide (Milk Of Magnesia) 30 ml DAILYPRN PRN PO CONSTIPATION 10/18/18 16:30 Menthol/Methyl Salicylate (Bengay Cream) apply to posterior ... TID TOP 10/25/18 09:00 11/08/18 09:51 Miscellaneous (Unresolved Clarification Entry) SEE LABEL COMMENTS DAILY XX 10/25/18 09:00 10/26/18 09:10 DC Miscellaneous (Unresolved Clarification Entry) SEE LABEL COMMENTS DAILY XX 11/04/18 09:00 11/05/18 06:13 DC Miscellaneous (Unresolved Clarification Entry) SEE LABEL COMMENTS DAILY XX 11/05/18 09:00 11/05/18 14:51 DC Non-Formulary Medication ( See Comment Field Below ) REMOVE LIDODERM PATCH DAILY@21 XX 10/31/18 21:00 10/31/18 21:00 DC Non-Formulary Medication ( See Comment Field Below ) REMOVE LIDODERM PATCH DAILY@21 XX 10/31/18 21:00 11/07/18 21:48 Ondansetron HCl (Zofran) 4 mg Q6HP PRN PO NAUSEA OR VOMITING 11/02/18 11:00 11/02/18 12:53 Pantoprazole Sodium (Protonix) 40 mg BID PO 10/18/18 21:00 11/08/18 09:50 Pantoprazole Sodium (Protonix) 40 mg QHS PO 10/18/18 21:00 10/18/18 21:00 DC Rosuvastatin Calcium (Crestor) 20 mg QHS PO 10/18/18 21:00 11/07/18 21:46 Senna (Senokot) 1 tab QHS PO 10/18/18 21:00 11/07/18 21:47 Trazodone HCl (Desyrel) 25 mg Q6HP PRN PO AGITATION 10/18/18 16:30 10/24/18 11:53 DC 10/19/18 03:07 Trazodone HCl (Desyrel) 25 mg QHS PO 10/21/18 21:00 10/24/18 11:53 DC 10/23/18 20:30 Trazodone HCl (Desyrel) 25 mg QHS PO 10/28/18 21:00 11/07/18 21:46 Trazodone HCl (Desyrel) 50 mg QHS PO 10/18/18 21:00 10/21/18 14:38 DC 10/20/18 20:19 CHRIS CORDON MD Nov 08, 2018 12:05
[2018-11-08 14:00] VITALS: BP 103/64
[2018-11-08 20:00] VITALS: BP 141/72
[2018-11-08] MEDS: FLUoxetine 20 MG CAP PO SCH (21:43)
[2018-11-08] MEDS: traZODone 25MG PER 1/2 TABLET PO SCH (21:44)
[2018-11-08] MEDS: SENNA 8.6 MG TAB (SENOKOT) PO SCH (21:45)
[2018-11-08] MEDS: ROSUVASTATIN 10 MG TAB (CRESTOR) PO SCH (21:45)
[2018-11-08] MEDS: LEVEMIR (INSULIN DETEMIR) 1 UNITS/0.01ML SC SCH (21:46)
[2018-11-08] MEDS: **NOTE PATIENT COMMENT** MISC XX SCH (21:50)
[2018-11-09 04:00] VITALS: BP 171/80
[2018-11-09] MEDS: LEVOTHYROXINE 75MCG TABLET (0.075MG) PO SCH (06:17)
[2018-11-09] MEDS: LABETALOL 100 MG TAB PO SCH ×3 (06:17→20:32)
[2018-11-09] MEDS: IPRATROPIUM 0.02% SOLN 0.5MG/2.5 ML NEB INH SCH ×2 (07:17→18:04)
[2018-11-09] MEDS: FOLIC ACID 1 MG TAB PO SCH (09:32)
[2018-11-09] MEDS: FERROUS GLUCONATE 324 MG TAB PO SCH ×2 (09:32→20:33)
[2018-11-09] MEDS: HEPARIN SOD (PORCINE) 5000 UNITS/ML VIAL SQ SCH ×2 (09:32→20:32)
[2018-11-09] MEDS: levETIRAcetam 250MG TABLET (KEPPRA) PO SCH ×2 (09:32→20:34)
[2018-11-09] MEDS: PANTOPRAZOLE 40MG TAB (PROTONIX) PO SCH ×2 (09:32→20:33)
[2018-11-09] MEDS: ACETAMINOPHEN 500 MG TAB PO SCH ×3 (09:32→20:34)
[2018-11-09] MEDS: guaiFENesin 200 MG TAB PO SCH ×3 (09:32→20:34)
[2018-11-09] MEDS: ASCORBIC ACID 500 MG TAB PO SCH (09:32)
[2018-11-09] MEDS: FUROSEMIDE 40 MG TAB PO SCH (09:32)
[2018-11-09] MEDS: DOCUSATE SODIUM 100 MG CAP PO SCH ×2 (09:32→20:33)
[2018-11-09] MEDS: ASPIRIN 81 MG CHEW TABLET PO SCH (09:33)
[2018-11-09] MEDS: LIDOCAINE 5% (LIDODERM) PATCH TD SCH (09:33)
[2018-11-09] MEDS: LACTOBACILLUS ACIDOPHILUS CAP (BACID) PO SCH ×3 (09:33→17:21)
[2018-11-09] MEDS: HumaLOG INSULIN (NovoLOG) PER UNIT SC SCH ×4 (09:33→20:34)
[2018-11-09] MEDS: ANALGESIC BALM CRM 120 GM TOP SCH ×3 (09:33→20:35)
[2018-11-09] MEDS: CALCIUM/VITAMIN D 500 MG TAB PO SCH (09:34)
[2018-11-09 14:00] VITALS: BP 119/71
[2018-11-09 19:54] VITALS: BP 118/56
[2018-11-09] MEDS: traZODone 25MG PER 1/2 TABLET PO SCH (20:32)
[2018-11-09] MEDS: FLUoxetine 20 MG CAP PO SCH (20:32)
[2018-11-09] MEDS: SENNA 8.6 MG TAB (SENOKOT) PO SCH (20:33)
[2018-11-09] MEDS: ROSUVASTATIN 10 MG TAB (CRESTOR) PO SCH (20:33)
[2018-11-09] MEDS: LEVEMIR (INSULIN DETEMIR) 1 UNITS/0.01ML SC SCH (20:35)
[2018-11-09] MEDS: **NOTE PATIENT COMMENT** MISC XX SCH (20:36)
[2018-11-10 05:38] VITALS: BP 156/84
[2018-11-10] MEDS: LEVOTHYROXINE 75MCG TABLET (0.075MG) PO SCH (05:40)
[2018-11-10] MEDS: LABETALOL 100 MG TAB PO SCH ×3 (05:40→21:55)
[2018-11-10] MEDS: IPRATROPIUM 0.02% SOLN 0.5MG/2.5 ML NEB INH SCH ×2 (07:22→20:00)
[2018-11-10] MEDS: HumaLOG INSULIN (NovoLOG) PER UNIT SC SCH ×4 (07:30→21:54)
[2018-11-10] MEDS: HEPARIN SOD (PORCINE) 5000 UNITS/ML VIAL SQ SCH ×2 (08:13→21:56)
[2018-11-10] MEDS: FOLIC ACID 1 MG TAB PO SCH (08:14)
[2018-11-10] MEDS: guaiFENesin 200 MG TAB PO SCH ×3 (08:14→21:54)
[2018-11-10] MEDS: LIDOCAINE 5% (LIDODERM) PATCH TD SCH (08:14)
[2018-11-10] MEDS: FUROSEMIDE 40 MG TAB PO SCH (08:14)
[2018-11-10] MEDS: levETIRAcetam 250MG TABLET (KEPPRA) PO SCH ×2 (08:15→21:57)
[2018-11-10] MEDS: LACTOBACILLUS ACIDOPHILUS CAP (BACID) PO SCH ×3 (08:15→16:28)
[2018-11-10] MEDS: DOCUSATE SODIUM 100 MG CAP PO SCH ×2 (08:15→21:56)
[2018-11-10] MEDS: FERROUS GLUCONATE 324 MG TAB PO SCH ×2 (08:15→21:55)
[2018-11-10] MEDS: CALCIUM/VITAMIN D 500 MG TAB PO SCH (08:15)
[2018-11-10] MEDS: PANTOPRAZOLE 40MG TAB (PROTONIX) PO SCH ×2 (08:15→21:56)
[2018-11-10] MEDS: ASCORBIC ACID 500 MG TAB PO SCH (08:15)
[2018-11-10] MEDS: ACETAMINOPHEN 500 MG TAB PO SCH ×3 (08:15→21:54)
[2018-11-10] MEDS: ASPIRIN 81 MG CHEW TABLET PO SCH (08:15)
[2018-11-10] MEDS: ANALGESIC BALM CRM 120 GM TOP SCH ×3 (08:16→21:56)
[2018-11-10 14:00] VITALS: BP 130/66
--- NOTE | 2018-11-10 17:11 | IPNPDOC ---
Text Note Date of Service The patient was seen on 11/10/18. NOTE Ms. Buckner denies any complaints. Her comment is that as she is getting better she has more pain at her incision site. She is status post surgical intervention for aortic dissection. Physical exam: HENT: She is reclining with a neck pillow for support, oral mucosa is moist and she does not have any adenopathy. Cardiovascular: Regular rate and rhythm with a normal S1 and S2. Respiratory: Clear to auscultation, no wheezing or cough. Abdomen: Soft, nontender, nondistended. Extremities: No remarkable edema. Neuro: Patient with apparent left-sided weakness Assessment/plan: Acute CVA. This is a right frontoparietal lesion. She is resulted in left hemiparesis. She continues with her acute rehabilitation program. Seizures. Patient is on Keppra. Would suggest repeat labs on the . Hypertension, hypothyroidism and [id number] diabetes mellitus are stably managed. VS,Fishbone, I+O VS, Fishbone, I+O Vital Signs Date Time Temp Pulse Resp B/P (MAP) Pulse Ox O2 Delivery O2 Flow Rate FiO2 11/10/18 14:30 93 130/66 11/10/18 14:00 97.6 18 96 I&O- Last 24 Hours up to 6 AM 11/10/18 05:59 Intake Total 840 ml Balance 840 ml FREIDA MCCRAY MD Nov 10, 2018 17:11
[2018-11-10 20:00] VITALS: BP 106/58
[2018-11-10] MEDS: ROSUVASTATIN 10 MG TAB (CRESTOR) PO SCH (21:54)
[2018-11-10] MEDS: LEVEMIR (INSULIN DETEMIR) 1 UNITS/0.01ML SC SCH (21:54)
[2018-11-10] MEDS: SENNA 8.6 MG TAB (SENOKOT) PO SCH (21:55)
[2018-11-10] MEDS: **NOTE PATIENT COMMENT** MISC XX SCH (21:56)
[2018-11-10] MEDS: FLUoxetine 20 MG CAP PO SCH (21:56)
[2018-11-10] MEDS: traZODone 25MG PER 1/2 TABLET PO SCH (21:56)
[2018-11-11 06:00] VITALS: BP 149/77
[2018-11-11] MEDS: LEVOTHYROXINE 75MCG TABLET (0.075MG) PO SCH (06:25)
[2018-11-11] MEDS: LABETALOL 100 MG TAB PO SCH ×3 (06:25→22:20)
[2018-11-11] MEDS: IPRATROPIUM 0.02% SOLN 0.5MG/2.5 ML NEB INH SCH ×2 (07:23→20:00)
[2018-11-11] MEDS: levETIRAcetam 250MG TABLET (KEPPRA) PO SCH ×2 (08:26→22:19)
[2018-11-11] MEDS: LACTOBACILLUS ACIDOPHILUS CAP (BACID) PO SCH ×3 (08:26→17:37)
[2018-11-11] MEDS: guaiFENesin 200 MG TAB PO SCH ×3 (08:26→22:18)
[2018-11-11] MEDS: HEPARIN SOD (PORCINE) 5000 UNITS/ML VIAL SQ SCH ×2 (08:26→22:21)
[2018-11-11] MEDS: ASCORBIC ACID 500 MG TAB PO SCH (08:26)
[2018-11-11] MEDS: CALCIUM/VITAMIN D 500 MG TAB PO SCH (08:26)
[2018-11-11] MEDS: FERROUS GLUCONATE 324 MG TAB PO SCH ×2 (08:26→22:19)
[2018-11-11] MEDS: DOCUSATE SODIUM 100 MG CAP PO SCH ×2 (08:26→22:19)
[2018-11-11] MEDS: FUROSEMIDE 40 MG TAB PO SCH (08:27)
[2018-11-11] MEDS: PANTOPRAZOLE 40MG TAB (PROTONIX) PO SCH ×2 (08:27→22:20)
[2018-11-11] MEDS: FOLIC ACID 1 MG TAB PO SCH (08:27)
[2018-11-11] MEDS: ACETAMINOPHEN 500 MG TAB PO SCH ×3 (08:27→22:19)
[2018-11-11] MEDS: ASPIRIN 81 MG CHEW TABLET PO SCH (08:27)
[2018-11-11] MEDS: LIDOCAINE 5% (LIDODERM) PATCH TD SCH (08:28)
[2018-11-11] MEDS: HumaLOG INSULIN (NovoLOG) PER UNIT SC SCH ×4 (08:28→21:00)
[2018-11-11] MEDS: ANALGESIC BALM CRM 120 GM TOP SCH ×3 (08:29→22:20)
[2018-11-11] MEDS ORDERED: FURO40TA2 PO (12:41)
[2018-11-11] MEDS ORDERED: TRAZ-252 PO (12:41)
[2018-11-11] MEDS ORDERED: CRES10TA PO (12:41)
[2018-11-11] MEDS ORDERED: LEVO75TA4 PO (12:41)
[2018-11-11] MEDS ORDERED: FOLI1TAB11 PO (12:41)
[2018-11-11] MEDS ORDERED: KEPP250T5 PO (12:41)
[2018-11-11] MEDS ORDERED: FLUO20CA19 PO (12:41)
[2018-11-11] MEDS ORDERED: ACET-683 PO (12:41)
[2018-11-11] MEDS ORDERED: LABE10TAB PO (12:41)
[2018-11-11] MEDS ORDERED: ASPI81CH8 PO (12:41)
[2018-11-11] MEDS ORDERED: PANT40TA3 PO (12:41)
[2018-11-11] MEDS ORDERED: RISATAB3 PO (12:41)
[2018-11-11 14:00] VITALS: BP 116/68
--- NOTE | 2018-11-11 14:21 | IPNPDOC ---
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 REVIEW OF SYSTEMS: The following is a completed review of systems and has been reviewed. Review of systems otherwise unremarkable. PAIN: Patient self reports no pain EYES: No recent vision changes EARS, NOSE, & THROAT: +dysphagia CARDIOVASCULAR: + chest pain (sternal wall pain, TTP)-resolved PULMONARY: Denies shortness of breath GASTROINTESTINAL: Denies constipation/diarrhea GENITOURINARY: +incontinence MUSCULOSKELETAL: LUE weakness NEUROLOGICAL:+ seizures, +LUE paresis and apraxia SKIN: abdominal incisions and sternal scar PSYCHIATRIC: agitated, but pleasant All other review of systems found to be negative. PHYSICAL EXAMINATION: VITAL SIGNS: Please see below. GENERAL: Pleasant and cooperative. No acute distress. mildly agitated HEENT: PERRL. Extraocular movements intact. Clear conjunctiva, left facial droop CARDIOVASCULAR: Regular rate and rhythm. No murmurs, rubs, or gallops, +TTP sternum LUNGS: Clear to auscultation bilaterally. No wheezes. No rhonchi, decreased breath sounds at bases (poor inspiratory effort) ABDOMEN: Soft, nontender, nondistended. Positive bowel sounds. Normal active bowel sounds NEUROLOGICAL: Alert and oriented to self and location, had difficulty following commands consistently, +apraxia Cranial nerves II through XII grossly intact except for left sided facial droop, extinction to touch on the left side, otherwise sensation intact to light touch EXTREMITIES: 5\\5 strength right upper extremities. 3/5 left elbow flexors/extensors, 2/5 selector packer and wrist extension 5\\5 strength right lower extremity. 4/5 strength in left lower extremity. SKIN: no sacral ulcers, sternal incision healing well, abdominal incisions with mild erythema ASSESSMENT:73 year-old F with past medical history of HTN, DM, CKD2 who presents status post abdominal aortic dissection repair complicated by right frontal infarct. 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 Neuro: s/p right frontal lobe infarct, c/u ASA and statin, maintain good BP control -CT head 10/26/18 for AMS with no acute changes-improving neurological status -c/u Prozac for motor recovery qHS -new onset GCT seizures, Keppra level 11/06/18 at 10 low end of therapy range , increased to 500 BID and needs to f/u with neurology upon discharge for levels to be rechecked 3. Cardio: s/p type A aortic dissection s/p repair on 10/04/18 with poorly controlled HTN with recent hypotensive episode at [facility] on 10/14, most BP meds held, was taking labetolol 100mg po TID c/u this regimen - f/u with cardiac surgeon -mild hyponatremia- c/u restrict to 1500cc and monitor- resolving 4. Resp: monitor for infection, encourage incentive spirometry, guaifenesin ordered and ipratropium -CT scan 10/27/18 shows persistent right pleural effusion, patient denies having worsening shortness of breath, c/u increased dose of Lasix 40mg daily, unless worsening symptoms will avoid any surgical interventions at this time-stable -CXR no infiltrate 5. Endo: pmh hypothyroidism, c/u Synthroid DM- c/u insulin coverage, and c/u to hold metformin 6. : Ucx positive for E. Coli s/p 10 day course of Cefdinir 6. DVT ppx: heparin and TEDs 7. GI ppx: protonix BID 7. Pain: c/u Tylenol to standing, c/u Lidoderm patch to sternum for chest wall/incisional pain (improving) 9. Psych:c/u prozac qHS, avoid stimulants given her recent cardiac surgery and new onset seizures 10. ID: leukocytosis resolved 8. Dispo: 11/12/18 to home, progressing towards goals Allergies Coded Allergies: morphine (Verified Adverse Reaction, Mild, 10/18/18) "facial flushing" Vital Signs Vital Signs Date Time Temp Pulse Resp B/P (MAP) Pulse Ox O2 Delivery O2 Flow Rate FiO2 11/11/18 06:25 85 149/77 11/11/18 06:00 97.8 18 95 Laboratory Data Labs 24H Laboratory Tests 2 11/10/18 16:44: Bedside Glucose (Misc Panel) 159H 11/10/18 19:43: Bedside Glucose (Misc Panel) 273H 11/11/18 06:22: Bedside Glucose (Misc Panel) 104 11/11/18 12:07: Bedside Glucose (Misc Panel) 95 Current Medications Current Medications Current Medications Medications (Trade) Dose Ordered Sig/Chirag Route PRN Reason Start Time Stop Time Status Last Admin Dose Admin Acetaminophen (Tylenol Tab) 650 mg Q4HP PRN PO MILD PAIN (PS 1-4) 10/18/18 16:30 10/31/18 11:24 DC 10/31/18 07:50 Acetaminophen (Tylenol Tab) 1,000 mg TID PO 10/31/18 16:00 11/11/18 08:27 Ascorbic Acid (Vitamin C) 500 mg DAILY PO 10/19/18 09:00 11/11/18 08:26 Aspirin (Aspirin Chewable) 81 mg DAILY PO 10/19/18 09:00 11/11/18 08:27 Bisacodyl (Dulcolax Suppository) 10 mg DAILYPRN PRN [place] CONSTIPATION 10/18/18 16:30 Calcium/Vitamin D (Oscal D) 500 mg DAILY PO 10/19/18 09:00 11/11/18 08:26 Cefdinir (Omnicef) 300 mg BID PO 10/19/18 21:00 10/26/18 09:01 DC 10/26/18 08:59 Cefdinir (Omnicef) 300 mg BID PO 10/26/18 14:00 10/27/18 10:59 DC 10/27/18 10:19 Dextrose (Dextrose 50%) 25 ml ASDIRECTED PRN IV SEE LABEL COMMENTS 10/18/18 16:30 Docusate Sodium (Colace) 100 mg BID PO 10/18/18 21:00 11/11/18 08:26 Ferrous Gluconate (Fergon) 324 mg BID PO 10/18/18 21:00 11/11/18 08:26 Fluoxetine HCl (PROzac) 20 mg DAILY PO 10/19/18 09:00 10/24/18 11:52 DC 10/24/18 08:30 Fluoxetine HCl (PROzac) 20 mg QHS PO 10/25/18 21:00 11/10/18 21:56 Folic Acid (Folic Acid) 1 mg DAILY PO 10/19/18 09:00 11/11/18 08:27 Furosemide (Lasix) 20 mg DAILY PO 10/19/18 09:00 10/27/18 10:59 DC 10/26/18 08:57 Furosemide (Lasix) 40 mg DAILY PO 10/28/18 09:00 11/11/18 08:27 Glucagon (Glucagon) 1 mg ASDIRECTED PRN SC SEE LABEL COMMENTS 10/18/18 16:30 Glucose (Glucose) 16 GM ASDIRECTED PRN PO SEE LABEL COMMENTS 10/18/18 16:30 Guaifenesin (Robitussin Tab) 400 mg TID PO 10/22/18 16:15 11/11/18 08:26 Heparin Sodium (Porcine) (Heparin) 5,000 units Q12H SQ 10/18/18 21:00 11/11/18 08:26 Home Med (Med Rec Complete!) ASDIRECTED XX 10/18/18 17:30 10/18/18 17:30 DC Insulin Detemir (Levemir Insulin) 10 units QHS SC 10/18/18 21:00 11/10/18 21:54 Insulin Human Lispro (HumaLOG INSULIN) SEE PROTOCOL TABLE AC SC 10/18/18 17:30 11/11/18 08:28 Insulin Human Lispro (HumaLOG INSULIN) SEE PROTOCOL TABLE QHS SC 10/18/18 21:00 11/10/18 21:54 Ipratropium [place] (Atrovent 0.02%) 0.5 mg RBID INH 10/22/18 20:00 11/11/18 07:23 Labetalol HCl (Normodyne, Trandate) 50 mg BID PO 10/18/18 21:00 10/19/18 07:40 DC 10/18/18 21:07 Labetalol HCl (Normodyne, Trandate) 50 mg Q8H PO 10/21/18 14:00 10/26/18 13:53 DC 10/26/18 05:45 Labetalol HCl (Normodyne, Trandate) 50 mg TID PO 10/18/18 21:00 10/18/18 21:00 DC Labetalol HCl (Normodyne, Trandate) 50 mg TID PO 10/19/18 09:00 10/21/18 14:36 DC 10/21/18 09:23 Labetalol HCl (Normodyne, Trandate) 100 mg Q8H PO 10/26/18 14:00 11/11/18 06:25 Lactobacillus Acidophilus (Bacid) 1 ea WM PO 10/19/18 18:00 11/11/18 12:38 Levetiracetam (Keppra) 250 mg BID PO 10/30/18 09:00 11/08/18 09:59 DC 11/08/18 09:49 Levetiracetam (Keppra) 500 mg BID PO 11/08/18 21:00 11/11/18 08:26 Levetiracetam (Keppra) 750 mg BID PO 10/29/18 21:00 10/29/18 21:00 DC Levetiracetam (Keppra) 1,000 mg BID PO 10/18/18 21:00 10/29/18 16:23 DC 10/29/18 09:11 Levothyroxine Sodium (Synthroid) 75 mcg DAILY@06 PO 10/19/18 06:00 11/11/18 06:25 Lidocaine (Lidoderm Patch) 1 patch DAILY TD 10/31/18 12:00 10/31/18 16:25 DC 10/31/18 12:26 Lidocaine (Lidoderm Patch) 2 patch DAILY TD 11/01/18 09:00 11/11/18 08:28 Magnesium Hydroxide (Milk Of Magnesia) 30 ml DAILYPRN PRN PO CONSTIPATION 10/18/18 16:30 Menthol/Methyl Salicylate (Bengay Cream) apply to posterior ... TID TOP 10/25/18 09:00 11/11/18 08:29 Miscellaneous (Unresolved Clarification Entry) SEE LABEL COMMENTS DAILY XX 10/25/18 09:00 10/26/18 09:10 DC Miscellaneous (Unresolved Clarification Entry) SEE LABEL COMMENTS DAILY XX 11/04/18 09:00 11/05/18 06:13 DC Miscellaneous (Unresolved Clarification Entry) SEE LABEL COMMENTS DAILY XX 11/05/18 09:00 11/05/18 14:51 DC Non-Formulary Medication ( See Comment Field Below ) REMOVE LIDODERM PATCH DAILY@21 XX 10/31/18 21:00 10/31/18 21:00 DC Non-Formulary Medication ( See Comment Field Below ) REMOVE LIDODERM PATCH DAILY@21 XX 10/31/18 21:00 11/10/18 21:56 Ondansetron HCl (Zofran) 4 mg Q6HP PRN PO NAUSEA OR VOMITING 11/02/18 11:00 11/02/18 12:53 Pantoprazole Sodium (Protonix) 40 mg BID PO 10/18/18 21:00 11/11/18 08:27 Pantoprazole Sodium (Protonix) 40 mg QHS PO 10/18/18 21:00 10/18/18 21:00 DC Rosuvastatin Calcium (Crestor) 20 mg QHS PO 10/18/18 21:00 11/10/18 21:54 Senna (Senokot) 1 tab QHS PO 10/18/18 21:00 11/10/18 21:55 Trazodone HCl (Desyrel) 25 mg Q6HP PRN PO AGITATION 10/18/18 16:30 10/24/18 11:53 DC 10/19/18 03:07 Trazodone HCl (Desyrel) 25 mg QHS PO 10/21/18 21:00 10/24/18 11:53 DC 10/23/18 20:30 Trazodone HCl (Desyrel) 25 mg QHS PO 10/28/18 21:00 11/10/18 21:56 Trazodone HCl (Desyrel) 50 mg QHS PO 10/18/18 21:00 10/21/18 14:38 DC 10/20/18 20:19 CHRIS CORDON MD Nov 11, 2018 14:21
[2018-11-11 19:50] VITALS: BP 107/58
[2018-11-11] MEDS: **NOTE PATIENT COMMENT** MISC XX SCH (21:00)
[2018-11-11] MEDS: traZODone 25MG PER 1/2 TABLET PO SCH (22:18)
[2018-11-11] MEDS: LEVEMIR (INSULIN DETEMIR) 1 UNITS/0.01ML SC SCH (22:18)
[2018-11-11] MEDS: FLUoxetine 20 MG CAP PO SCH (22:19)
[2018-11-11] MEDS: ROSUVASTATIN 10 MG TAB (CRESTOR) PO SCH (22:19)
[2018-11-11] MEDS: SENNA 8.6 MG TAB (SENOKOT) PO SCH (22:21)
[2018-11-12 06:00] VITALS: BP 166/90
[2018-11-12] MEDS: LABETALOL 100 MG TAB PO SCH ×2 (06:30→15:16)
[2018-11-12] MEDS: LEVOTHYROXINE 75MCG TABLET (0.075MG) PO SCH (06:31)
[2018-11-12] MEDS: IPRATROPIUM 0.02% SOLN 0.5MG/2.5 ML NEB INH SCH (07:17)
[2018-11-12] MEDS: HumaLOG INSULIN (NovoLOG) PER UNIT SC SCH ×2 (07:30→12:26)
[2018-11-12 09:00] VITALS: BP 127/74
[2018-11-12] MEDS: DOCUSATE SODIUM 100 MG CAP PO SCH (09:00)
[2018-11-12] MEDS: FUROSEMIDE 40 MG TAB PO SCH (09:01)
[2018-11-12] MEDS: ASPIRIN 81 MG CHEW TABLET PO SCH (09:01)
[2018-11-12] MEDS: levETIRAcetam 250MG TABLET (KEPPRA) PO SCH (09:01)
[2018-11-12] MEDS: FOLIC ACID 1 MG TAB PO SCH (09:01)
[2018-11-12] MEDS: guaiFENesin 200 MG TAB PO SCH (09:01)
[2018-11-12] MEDS: PANTOPRAZOLE 40MG TAB (PROTONIX) PO SCH (09:01)
[2018-11-12] MEDS: LACTOBACILLUS ACIDOPHILUS CAP (BACID) PO SCH ×2 (09:02→12:26)
[2018-11-12] MEDS: FERROUS GLUCONATE 324 MG TAB PO SCH (09:02)
[2018-11-12] MEDS: ASCORBIC ACID 500 MG TAB PO SCH (09:02)
[2018-11-12] MEDS: HEPARIN SOD (PORCINE) 5000 UNITS/ML VIAL SQ SCH (09:02)
[2018-11-12] MEDS: CALCIUM/VITAMIN D 500 MG TAB PO SCH (09:02)
[2018-11-12] MEDS: ACETAMINOPHEN 500 MG TAB PO SCH ×2 (09:02→15:16)
[2018-11-12] MEDS: LIDOCAINE 5% (LIDODERM) PATCH TD SCH (09:03)
[2018-11-12] MEDS: ANALGESIC BALM CRM 120 GM TOP SCH (09:03)
[2018-11-12 14:00] VITALS: BP 123/73
[2018-11-12 15:16] VITALS: BP 123/73
== END 2018-11-12 15:53 | disposition home or self-care (01) | DRG 57 ==
LOC: M PM&R 16:20
PROVIDERS: ADMIT Physical Medicine & Rehabilitation; ATTEND Physical Medicine & Rehabilitation
DX: I69.354 Hemiplegia and hemiparesis following cerebral infarction affecting left non-dominant side (principal); N39.0 Urinary tract infection, site not specified; E87.1 Hypo-osmolality and hyponatremia; J90 Pleural effusion, not elsewhere classified; I31.3 Pericardial effusion (noninflammatory); I69.392 Facial weakness following cerebral infarction; I69.390 Apraxia following cerebral infarction; I69.391 Dysphagia following cerebral infarction; R32 Unspecified urinary incontinence; I69.398 Other sequelae of cerebral infarction; G40.409 Other generalized epilepsy and epileptic syndromes, not intractable, without status epilepticus; R13.10 Dysphagia, unspecified; R41.82 Altered mental status, unspecified; D72.829 Elevated white blood cell count, unspecified; G89.22 Chronic post-thoracotomy pain; R45.1 Restlessness and agitation; B96.20 Unspecified Escherichia coli [E. coli] as the cause of diseases classified elsewhere; K75.81 Nonalcoholic steatohepatitis (NASH); T42.75XA Adverse effect of unspecified antiepileptic and sedative-hypnotic drugs, initial encounter; E11.22 Type 2 diabetes mellitus with diabetic chronic kidney disease; D64.9 Anemia, unspecified; I12.9 Hypertensive chronic kidney disease with stage 1 through stage 4 chronic kidney disease, or unspecified chronic kidney disease; N18.2 Chronic kidney disease, stage 2 (mild); E03.9 Hypothyroidism, unspecified; M10.9 Gout, unspecified; Z79.84 Long term (current) use of oral hypoglycemic drugs; Z79.899 Other long term (current) drug therapy; Z88.5 Allergy status to narcotic agent; Z98.890 Other specified postprocedural states